=== PATIENT | male | born 1930 | race Caucasian/White ===

== ENCOUNTER 2017-08-25 09:08 | Day surgery (SDC) | payer MEDICARE, BC ==
[~2017-08-25 09:08] MED LIST: Metoclopramide 10 MG/2 ML SDV IV PRN; Sodium Chloride 0.9% 1,000 ML IV SCH; Sodium Chloride 0.9% 10 ML Syringe FLUSH PRN
[2017-08-25] MEDS ORDERED: Propofol 200 MG/20 ML SDV ONE (11:10)
--- NOTE | 2017-08-25 12:14 | OR ---
DATE OF OPERATION: 08/25/2017 PREOPERATIVE DIAGNOSIS: Change in bowel habits. POSTOPERATIVE DIAGNOSIS: Change in bowel habits. PROCEDURE: Colonoscopy. ANESTHESIA: MAC. ESTIMATED BLOOD LOSS: None. COMPLICATIONS: None. INDICATION FOR THE PROCEDURE: The patient is an 86-year-old male, who had a colonoscopy approximately 10 years ago was normal per patient. Over the past year, he has had a change in bowel habits. He has noticed a smaller caliber stools than normal. No blood. Otherwise, doing well. The patient is here today for colonoscopy. DESCRIPTION OF PROCEDURE: Informed consent was obtained from the patient. The patient was taken to the operating room, placed on table in left lateral decubitus position. Monitored anesthesia care was administered. Digital rectal exam was normal. No masses are palpated. Colonoscope was then advanced through the anus and directed toward the cecum. Cecum was identified by ileocecal valve as well as appendiceal orifice. Colonoscope was slowly withdrawn. No masses. No polyps. No areas of AV malformation, ischemia, or inflammation were identified. The patient did have some moderate diverticulosis in the sigmoid colon. Retroflexion was performed in the rectum, which was also unremarkable. Colonoscope was then withdrawn. The patient tolerated procedure well and was brought to recovery room in good condition. FINDINGS: Sigmoid diverticulosis. RECOMMENDATIONS: No signs of colorectal cancer today contributing to his change in caliber of stool. Would not recommend further colonoscopies for patient. WILBER /[id number]
[2017-08-25 17:36] VITALS: BP 157/80
== END 2017-08-25 14:40 | disposition home or self-care (01) ==
LOC: LB.SDS 09:08
PROVIDERS: ATTEND Surgery
DX: K57.30 Diverticulosis of large intestine without perforation or abscess without bleeding (principal); Z86.73 Personal history of transient ischemic attack (TIA), and cerebral infarction without residual deficits; Z79.82 Long term (current) use of aspirin; Z79.899 Other long term (current) drug therapy; Z79.02 Long term (current) use of antithrombotics/antiplatelets
CPT/HCPCS: 45378; 82962; J2704; J7040

== ENCOUNTER 2018-09-21 17:35 | Observation (INO) | payer MEDICARE ==
--- NOTE | 2018-09-21 18:37 | EDM.PDOC ---
ED HPI GENERAL MEDICAL PROBLEM - General Chief Complaint: General Stated Complaint: POSSIBLE STROKE Time Seen by Provider: 09/21/18 18:20 Source of Information: Reports: Patient, EMS, EMS Notes Reviewed, RN History Limitations: Reports: No Limitations - History of Present Illness INITIAL COMMENTS - FREE TEXT/NARRATIVE: 87 yr male presents from EMS with stroke like symptoms today at home. States numbness to left leg. He had a previous stroke with right side affect. Pt is alert and talking and joking. Moves feet with light stroke of soles of feet. Oxygen is on 3lpm and SpO2 =97%. Pt is a poor historian. He is unsure if he is feeling any better and doesn't know what was going on at the home for his symptoms. His isn't here yet. - Related Data Allergies Allergy/AdvReac Type Severity Reaction Status Date / Time No Known Allergies Allergy Verified 09/21/18 19:33 Home Meds: Home Meds Aspirin [Adult Low Dose Aspirin EC] 81 mg PO QPM 11/16/13 [History] Levothyroxine [Synthroid] 88 mcg PO ACBREAKFAST 11/16/13 [History] atorvaSTATin [Lipitor] 40 mg PO BEDTIME 01/13/16 [History] Acetaminophen [Tylenol Arthritis] 650 mg PO Q6HR PRN 08/25/17 [History] Clopidogrel [Plavix] 75 mg PO DAILY 08/25/17 [History] Furosemide [Lasix] 20 mg PO DAILY 08/25/17 [History] Metoprolol Tartrate [Lopressor] 25 mg PO DAILY 08/25/17 [History] Multivitamin [Men's Multi-Vitamin] 1 each PO 1200 08/25/17 [History] Tamsulosin [Tamsulosin 24 Hr] 0.4 mg PO BEDTIME 08/25/17 [History] Ubidecarenone [Co Q-10] 200 mg PO 1200 08/25/17 [History] Past Medical History HEENT History: Reports: Impaired Vision, Macular Degeneration, Other (See Below) 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 Cardiovascular History: Reports: Bypass, CAD, High Cholesterol, VA, Stents Gastrointestinal History: Reports: Chronic Constipation Musculoskeletal History: Reports: Fracture Neurological History: Reports: CVA, TIA Endocrine/Metabolic History: Reports: Hypothyroidism, Other (See Below) Other Endocrine/Metabolic History: diet controled diabetis Oncologic (Cancer) History: Reports: None - Infectious Disease History Infectious Disease History: Reports: Chicken Pox, Measles, Mumps - Past Surgical History HEENT Surgical History: Reports: Cataract Surgery Cardiovascular Surgical History: Reports: Coronary Artery Bypass, Coronary Artery Stent, Vascular Surgery GI Surgical History: Reports: None Endocrine Surgical History: Reports: None Neurological Surgical History: Reports: None Musculoskeletal Surgical History: Reports: Shoulder Surgery, Other (See Below) Other Musculoskeletal Surgeries/Procedures:: Bilat shoulder sx, fx arm, does remember which arm was fx Social & Family History - Family History Family Medical History: Noncontributory - Caffeine Use Caffeine Use: Reports: Coffee Caffeine Use Comment: 3 cups day ED ROS GENERAL - Review of Systems Review Of Systems: See Below Constitutional: Reports: No Symptoms HEENT: Reports: Glasses Respiratory: Reports: Shortness of Breath Cardiovascular: Denies: Chest Pain, Edema GI/Abdominal: Reports: No Symptoms : Reports: Urgency Musculoskeletal: Reports: Other (states weakness to right hand from previous stroke) Skin: Reports: No Symptoms Neurological: Denies: Confusion, Dizziness, Trouble Speaking, Change in Speech Psychiatric: Reports: No Symptoms ED EXAM, GENERAL - Physical Exam Exam: See Below Exam Limited By: No Limitations General Appearance: Alert, No Apparent Distress Ears: Hearing Grossly Normal Nose: Normal Inspection, Normal Mucosa Throat/Mouth: Normal Voice, No Airway Compromise Head: Atraumatic, Normocephalic Neck: Normal Inspection, Supple, Non-Tender Respiratory/Chest: No Respiratory Distress, No Accessory Muscle Use, Chest Non- Tender, Crackles (bases bilaterally) Cardiovascular: Normal Peripheral Pulses, Regular Rate, Rhythm, No Edema Peripheral Pulses: 2+: Dorsalis Pedis (L), Dorsalis Pedis (R) GI/Abdominal: Soft, Non-Tender, No Distention (Male) Exam: Other (voided in urinal) Back Exam: Normal Inspection Extremities: Non-Tender, No Pedal Edema, Other (moving feet and legs well) Neurological: Alert Psychiatric: Normal Affect, Normal Mood Skin Exam: Warm, Dry, Normal Color Lymphatic: No Adenopathy Course - Vital Signs Last Recorded V/S: Last Vital Signs Temp 100.1 F 09/21/18 19:31 Pulse 97 09/21/18 19:31 Resp 18 09/21/18 19:31 BP 151/72 H 09/21/18 19:31 Pulse Ox 93 L 09/21/18 19:31 - Orders/Labs/Meds Orders: Active Orders 24 hr Category Date Time Status Patient Status [ADT] Routine ADT 09/21/18 19:50 Ordered Oxygen Therapy [RC] ASDIRECTED Care 09/21/18 19:50 Ordered Vital Signs [RC] Q4H Care 09/21/18 19:50 Ordered Heart Healthy Diet [DIET] Diet 09/22/18 Breakfast Ordered Chest 1V Frontal [CR] Stat Exams 09/21/18 18:27 Taken Head wo Cont [CT] Stat Exams 09/21/18 18:28 Taken BASIC METABOLIC PANEL,BMP [CHEM] Stat Lab 09/22/18 08:00 Ordered CBC WITH AUTO DIFF [HEME] Stat Lab 09/22/18 08:00 Ordered Acetaminophen [Tylenol Arthritis] Med 09/21/18 19:55 Ordered 650 mg PO Q6HR PRN Aspirin [Adult Low Dose Aspirin EC] Med 09/21/18 20:00 Ordered 81 mg PO QPM Clopidogrel [Plavix] Med 09/22/18 08:00 Ordered 75 mg PO DAILY Furosemide [Lasix] Med 09/22/18 08:00 Ordered 20 mg PO DAILY Levothyroxine [Synthroid] Med 09/22/18 07:00 Ordered 88 mcg PO ACBREAKFAST Metoprolol Tartrate [Lopressor] Med 09/22/18 08:00 Ordered 25 mg PO DAILY Sodium Chloride 0.9% @ 75 MLS/HR(1000ml) Med 09/21/18 20:00 Ordered Sodium Chloride 0.9% [Normal Saline] 1,000 ml IV ASDIRECTED Tamsulosin [Flomax] Med 09/21/18 20:00 Ordered 0.4 mg PO BEDTIME Medication Orders Sodium Chloride (Normal Saline) 1,000 mls @ 75 mls/hr IV ASDIRECTED [facility] Non-Formulary Medication (Acetaminophen [Tylenol Arthritis]) 650 mg PO Q6HR PRN PRN Reason: Pain Non-Formulary Medication (Aspirin [Adult Low Dose Aspirin Ec]) 81 mg PO QPM [facility] Non-Formulary Medication (Clopidogrel [Plavix]) 75 mg PO DAILY [facility] Non-Formulary Medication (Furosemide [Lasix]) 20 mg PO DAILY [facility] Non-Formulary Medication (Levothyroxine [Synthroid]) 88 mcg PO ACBREAKFAST [facility] Non-Formulary Medication (Metoprolol Tartrate [Lopressor]) 25 mg PO DAILY [facility] Non-Formulary Medication (Tamsulosin [Flomax]) 0.4 mg PO BEDTIME [facility] Labs: Laboratory Tests 09/21/18 09/21/18 09/21/18 Range/Units 18:20 18:30 18:30 WBC 20.4 H* D (4.0-11.0) K/uL RBC 4.05 L (4.50-6.50) M/uL Hgb 12.3 L (13.0-18.0) g/dL Hct 36.0 L (40.0-54.0) % MCV 89 (76-96) fL MCH 30.4 (27.0-32.0) pg MCHC 34.2 (31.0-35.0) g/dL RDW 14.4 (11.0-16.0) % Plt Count 208 D (150-400) K/uL MPV 10.9 H (6.0-10.0) fL Add Manual Diff Yes Neutrophils % (Manual) 56.0 (45.0-70.0) % Lymphocytes % (Manual) 37.0 (20.0-40.0) % Monocytes % (Manual) 4.0 (3.0-10.0) % Eosinophils % (Manual) 3.0 (1.0-5.0) % Platelet Estimate Adequate PT (9.0-11.5) sec INR (1.0-3.5) Sodium 131 L (136-145) mmol/L Potassium 4.8 (3.5-5.1) mmol/L Chloride 95 L (98-107) mmol/L Carbon Dioxide 26.1 (21.0-32.0) mmol/L Anion Gap 14.7 (5.0-15.0) mmol/L BUN 14 (8-26) mg/dL Creatinine 1.08 (0.70-1.30) mg/dL Est Cr Clr Drug Dosing TNP Estimated GFR (MDRD) > 60 (>60) MLS/MIN BUN/Creatinine Ratio 13.0 (6-25) Glucose 148 H (74-100) mg/dL Lactic Acid (0.90-1.70) mmol/L Calcium 8.2 L (8.5-10.1) mg/dL Total Bilirubin 0.5 D (0.0-1.0) mg/dL AST 25 (15-37) U/L ALT 34 (12-78) U/L Alkaline Phosphatase 60 (46-116) U/L Total Protein 6.3 L (6.4-8.2) g/dL Albumin 3.7 (3.4-5.0) g/dL Globulin 2.6 (2.2-4.2) g/dL Albumin/Globulin Ratio 1.4 (0.8-2.0) TSH, Ultra Sensitive (0.358-3.740) uIU/mL Urine Color Yellow Urine Appearance Clear (CLEAR) Urine pH 7.5 (5.0-8.0) Ur Specific [place] 1.015 (1.003-1.030) Urine Protein Negative (NEGATIVE) mg/dL Urine Glucose (UA) Negative (NEGATIVE) mg/dL Urine Ketones Negative (NEGATIVE) mg/dL Urine Occult Blood Negative (NEGATIVE) Urine Nitrite Negative (NEGATIVE) Urine Bilirubin Negative (NEGATIVE) Urine Urobilinogen 0.2 (0.2-1.0) E.U./dL Ur Leukocyte Esterase Negative (NEGATIVE) Urine RBC Not seen /HPF Urine WBC Not seen /HPF Ur Squamous Epith Cells Rare /HPF Urine Bacteria Not seen /HPF 09/21/18 09/21/18 09/21/18 Range/Units 18:30 18:30 18:30 WBC (4.0-11.0) K/uL RBC (4.50-6.50) M/uL Hgb (13.0-18.0) g/dL Hct (40.0-54.0) % MCV (76-96) fL MCH (27.0-32.0) pg MCHC (31.0-35.0) g/dL RDW (11.0-16.0) % Plt Count (150-400) K/uL MPV (6.0-10.0) fL Add Manual Diff Neutrophils % (Manual) (45.0-70.0) % Lymphocytes % (Manual) (20.0-40.0) % Monocytes % (Manual) (3.0-10.0) % Eosinophils % (Manual) (1.0-5.0) % Platelet Estimate PT 10.0 (9.0-11.5) sec INR 1.0 (1.0-3.5) Sodium (136-145) mmol/L Potassium (3.5-5.1) mmol/L Chloride (98-107) mmol/L Carbon Dioxide (21.0-32.0) mmol/L Anion Gap (5.0-15.0) mmol/L BUN (8-26) mg/dL Creatinine (0.70-1.30) mg/dL Est Cr Clr Drug Dosing Estimated GFR (MDRD) (>60) MLS/MIN BUN/Creatinine Ratio (6-25) Glucose (74-100) mg/dL Lactic Acid 0.84 L (0.90-1.70) mmol/L Calcium (8.5-10.1) mg/dL Total Bilirubin (0.0-1.0) mg/dL AST (15-37) U/L ALT (12-78) U/L Alkaline Phosphatase (46-116) U/L Total Protein (6.4-8.2) g/dL Albumin (3.4-5.0) g/dL Globulin (2.2-4.2) g/dL Albumin/Globulin Ratio (0.8-2.0) TSH, Ultra Sensitive 4.449 H (0.358-3.740) uIU/mL Urine Color Urine Appearance (CLEAR) Urine pH (5.0-8.0) Ur Specific [place] (1.003-1.030) Urine Protein (NEGATIVE) mg/dL Urine Glucose (UA) (NEGATIVE) mg/dL Urine Ketones (NEGATIVE) mg/dL Urine Occult Blood (NEGATIVE) Urine Nitrite (NEGATIVE) Urine Bilirubin (NEGATIVE) Urine Urobilinogen (0.2-1.0) E.U./dL Ur Leukocyte Esterase (NEGATIVE) Urine RBC /HPF Urine WBC /HPF Ur Squamous Epith Cells /HPF Urine Bacteria /HPF Meds: Medications Generic Name Dose Route Start Last Admin Trade Name Freq PRN Reason Stop Dose Admin Sodium Chloride 1,000 mls @ 75 mls/hr 09/21/18 20:00 Normal Saline IV ASDIRECTED [facility] Non-Formulary Medication 650 mg 09/21/18 19:55 Acetaminophen [Tylenol Arthritis] PO Q6HR PRN Pain Non-Formulary Medication 81 mg 09/21/18 20:00 Aspirin [Adult Low Dose Aspirin Ec] PO QPM [facility] Non-Formulary Medication 75 mg 09/22/18 08:00 Clopidogrel [Plavix] PO DAILY [facility] Non-Formulary Medication 20 mg 09/22/18 08:00 Furosemide [Lasix] PO DAILY [facility] Non-Formulary Medication 88 mcg 09/22/18 07:00 Levothyroxine [Synthroid] PO ACBREAKFAST [facility] Non-Formulary Medication 25 mg 09/22/18 08:00 Metoprolol Tartrate [Lopressor] PO DAILY [facility] Non-Formulary Medication 0.4 mg 09/21/18 20:00 Tamsulosin [Flomax] PO BEDTIME [facility] - Re-Assessments/Exams Free Text/Narrative Re-Assessment/Exam: 09/21/18 19:[address] completed and chest x-ray w results pending. is here now and states she and pt have had a cough and head cold for about 3 days. States they haven't had any supper. States her was in the chair and got up to walk and leg was numb and couldn't feel the leg, so ambulance was called as and pt concerned of possible stroke. Lab results pending. Lactic acid 0.84 and INR 1.0. 09/21/18 19:[address] quick read is complete and no acute infarct, no hemorrhage. Chest x-ray quick read is complete and no acute findings. Discussed results with pt and . 09/21/18 19:45 Discussed lab results w pt and . Elevated WBC, and congested cough noted. Will place on observation and treat for CAP with Rocephin and Azithromycin IV. Sodium and chloride are slightly decreased Will start IV fluids Nacl at 75cc/hr. Will hold Cholesterol medicine and vitamin for the night. Departure - Departure Time of Disposition: 19:45 Disposition: Refer to Observation Condition: Good Clinical Impression: Pneumonia - Discharge Information *PRESCRIPTION DRUG MONITORING PROGRAM REVIEWED*: Not Applicable *COPY OF PRESCRIPTION DRUG MONITORING REPORT IN PATIENT LUCIO: Not Applicable Forms: ED Department Discharge - My Orders Last 24 Hours: My Active Orders 09/21/18 18:27 Chest 1V Frontal [CR] Stat 09/21/18 18:28 Head wo Cont [CT] Stat 09/21/18 19:50 Patient Status [ADT] Routine Oxygen Therapy [RC] ASDIRECTED Vital Signs [RC] Q4H 09/21/18 19:55 Acetaminophen [Tylenol Arthritis] 650 mg PO Q6HR PRN 09/21/18 20:00 Aspirin [Adult Low Dose Aspirin EC] 81 mg PO QPM Sodium Chloride 0.9% @ 75 MLS/HR(1000ml) Sodium Chloride 0.9% [Normal Saline] 1 ,000 ml IV ASDIRECTED Tamsulosin [Flomax] 0.4 mg PO BEDTIME 09/22/18 07:00 Levothyroxine [Synthroid] 88 mcg PO ACBREAKFAST 09/22/18 08:00 BASIC METABOLIC PANEL,BMP [CHEM] Stat CBC WITH AUTO DIFF [HEME] Stat Clopidogrel [Plavix] 75 mg PO DAILY Furosemide [Lasix] 20 mg PO DAILY Metoprolol Tartrate [Lopressor] 25 mg PO DAILY 09/22/18 Breakfast Heart Healthy Diet [DIET] - Assessment/Plan Last 24 Hours: My Active Orders 09/21/18 18:27 Chest 1V Frontal [CR] Stat 09/21/18 18:28 Head wo Cont [CT] Stat 09/21/18 19:50 Patient Status [ADT] Routine Oxygen Therapy [RC] ASDIRECTED Vital Signs [RC] Q4H 09/21/18 19:55 Acetaminophen [Tylenol Arthritis] 650 mg PO Q6HR PRN 09/21/18 20:00 Aspirin [Adult Low Dose Aspirin EC] 81 mg PO QPM Sodium Chloride 0.9% @ 75 MLS/HR(1000ml) Sodium Chloride 0.9% [Normal Saline] 1 ,000 ml IV ASDIRECTED Tamsulosin [Flomax] 0.4 mg PO BEDTIME 09/22/18 07:00 Levothyroxine [Synthroid] 88 mcg PO ACBREAKFAST 09/22/18 08:00 BASIC METABOLIC PANEL,BMP [CHEM] Stat CBC WITH AUTO DIFF [HEME] Stat Clopidogrel [Plavix] 75 mg PO DAILY Furosemide [Lasix] 20 mg PO DAILY Metoprolol Tartrate [Lopressor] 25 mg PO DAILY 09/22/18 Breakfast Heart Healthy Diet [DIET] Plan: Elevated WBC of 20.4 and temperature tonight, Pt has loose cough and has been sick for a few days. Chest x-ray [address] on observation with CAP and start Rocephin 1 gm IV and Azithromycin 500 mg IV. IV Nacl at 75 cc/hr. Start incentive spirometer. will stay with pt. will check CBC and BMP in am. Will continue home medications.
[2018-09-21] MEDS ORDERED: Acetaminophen 650 MG Tab.ER PO PRN ×2 (19:55→23:05)
[2018-09-21] MEDS ORDERED: Non-Formulary Medication 1 Each (Tamsulosin [Flomax] 0.4 MG) PO SCH (20:00)
--- NOTE | 2018-09-21 20:34 | CT ---
CLINICAL DATA: R/O CVA. UNENHANCED BRAIN CT, 21 SEPTEMBER 2018: Multislice acquisition through the brain without IV contrast was performed. Comparison made to a prior exam dated 19 January 2016. There is diffuse cerebral atrophy. There are periventricular lucencies bilaterally, consistent with small vessel ischemic change. There are lucencies in the basal ganglia bilaterally, consistent with old lacunar infarcts. There are small areas of encephalomalacia in the left parietal region and right posterior parietal region, consistent with prior infarcts. No masses or mass effect. No intracranial hemorrhage. No evidence of acute or subacute infarct. There is extensive mucosal thickening and fluid in the ethmoid sinuses. There is also mucosal thickening in the sphenoid sinuses, consistent with sinus disease. No fractures. IMPRESSION: No acute intracranial abnormalities. Job: [id number] [facility]
--- NOTE | 2018-09-21 20:36 | CR ---
CLINICAL DATA: Short of breath. AP PORTABLE CHEST, 21 SEPTEMBER 2018: Comparison made to a prior exam dated 20 April 2018: The patient is status post median sternotomy. The heart size is normal. The aorta is ectatic. There are mild interstitial changes throughout both lungs. The lungs are otherwise clear. There is slight blunting of both costophrenic angles, consistent with small bilateral pleural effusions or pleural scar. No other significant findings. Job: [id number] [facility]
[2018-09-21] MEDS ORDERED: cefTRIAXone 1 GM in Sodium Chloride 0.9% 50 ML IV ONE (20:37)
[2018-09-21] MEDS ORDERED: Azithromycin 500 MG in Sodium Chloride 0.9% 250 ML IV ONE (20:38)
[2018-09-21] MEDS: Sodium Chloride 0.9% 1,000 ML IV SCH (21:03)
[2018-09-21] MEDS ORDERED: Aspirin 81 MG Tab.EC PO SCH (22:04)
[2018-09-22] MEDS ORDERED: Albuterol 0.083% 2.5 MG/3 ML Neb Soln NEB PRN ×2 (00:09→08:42)
[2018-09-22] MEDS ORDERED: Albuterol 0.083% 2.5 MG/3 ML Neb Soln ONE (00:18)
[2018-09-22] MEDS: Levothyroxine 88 MCG Tab**OWN MED PO SCH (06:16)
[2018-09-22] MEDS: Sodium Chloride 0.9% 1,000 ML IV SCH (07:42)
[2018-09-22] MEDS ORDERED: Metoprolol Tartrate 25 MG Tab**OWN MED PO SCH (08:00)
[2018-09-22] MEDS: Furosemide 20 MG Tab**OWN MED PO SCH (08:16)
[2018-09-22] MEDS: Clopidogrel 75 MG Tab**OWN MED PO SCH (08:16)
--- NOTE | 2018-09-22 08:41 | PCM.PN ---
- General Info Date of Service: 09/22/18 Admission Dx/Problem (Free Text): pneumonia Subjective Update: Pt reports cough continues, but is feeling some better. reports pt had a good night. Functional Status: Reports: Pain Controlled, Tolerating Diet, Urinating, Incentive Spirometry - Review of Systems General: Reports: Weakness. Denies: Fever HEENT: Reports: Glasses. Denies: Sore Throat, Rhinitis Pulmonary: Reports: Cough, Sputum. Denies: Wheezing Cardiovascular: Denies: Chest Pain, Edema Gastrointestinal: Denies: Abdominal Pain, Diarrhea, Nausea Genitourinary: Reports: Frequency, Urgency Musculoskeletal: Reports: Other (no pain) Skin: Reports: Dryness Neurological: Reports: Difficulty Walking. Denies: Confusion, Dizziness Psychiatric: Reports: No Symptoms - Patient Data Vitals - Most Recent: Last Vital Signs Temp 98.6 F 09/22/18 07:43 Pulse 103 H 09/22/18 08:16 Resp 18 09/22/18 07:43 BP 155/81 H 09/22/18 08:16 Pulse Ox 94 L 09/22/18 07:43 Weight - Most Recent: 157 lb 12.8 oz I&O - Last 24 Hours: Intake & Output 09/21/18 09/22/18 09/22/18 22:59 06:59 14:59 Intake Total 854 Balance 854 Lab Results Last 24 Hours: Laboratory Results - last 24 hr 09/21/18 09/21/18 09/21/18 Range/Units 18:20 18:30 18:30 WBC 20.4 H* D (4.0-11.0) K/uL RBC 4.05 L (4.50-6.50) M/uL Hgb 12.3 L (13.0-18.0) g/dL Hct 36.0 L (40.0-54.0) % MCV 89 (76-96) fL MCH 30.4 (27.0-32.0) pg MCHC 34.2 (31.0-35.0) g/dL RDW 14.4 (11.0-16.0) % Plt Count 208 D (150-400) K/uL MPV 10.9 H (6.0-10.0) fL Add Manual Diff Yes Neutrophils % (Manual) 56.0 (45.0-70.0) % Lymphocytes % (Manual) 37.0 (20.0-40.0) % Monocytes % (Manual) 4.0 (3.0-10.0) % Eosinophils % (Manual) 3.0 (1.0-5.0) % Platelet Estimate Adequate PT (9.0-11.5) sec INR (1.0-3.5) Sodium 131 L (136-145) mmol/L Potassium 4.8 (3.5-5.1) mmol/L Chloride 95 L (98-107) mmol/L Carbon Dioxide 26.1 (21.0-32.0) mmol/L Anion Gap 14.7 (5.0-15.0) mmol/L BUN 14 (8-26) mg/dL Creatinine 1.08 (0.70-1.30) mg/dL Est Cr Clr Drug Dosing TNP Estimated GFR (MDRD) > 60 (>60) MLS/MIN BUN/Creatinine Ratio 13.0 (6-25) Glucose 148 H (74-100) mg/dL Lactic Acid (0.90-1.70) mmol/L Calcium 8.2 L (8.5-10.1) mg/dL Total Bilirubin 0.5 D (0.0-1.0) mg/dL AST 25 (15-37) U/L ALT 34 (12-78) U/L Alkaline Phosphatase 60 (46-116) U/L Total Protein 6.3 L (6.4-8.2) g/dL Albumin 3.7 (3.4-5.0) g/dL Globulin 2.6 (2.2-4.2) g/dL Albumin/Globulin Ratio 1.4 (0.8-2.0) TSH, Ultra Sensitive (0.358-3.740) uIU/mL Urine Color Yellow Urine Appearance Clear (CLEAR) Urine pH 7.5 (5.0-8.0) Ur Specific [place] 1.015 (1.003-1.030) Urine Protein Negative (NEGATIVE) mg/dL Urine Glucose (UA) Negative (NEGATIVE) mg/dL Urine Ketones Negative (NEGATIVE) mg/dL Urine Occult Blood Negative (NEGATIVE) Urine Nitrite Negative (NEGATIVE) Urine Bilirubin Negative (NEGATIVE) Urine Urobilinogen 0.2 (0.2-1.0) E.U./dL Ur Leukocyte Esterase Negative (NEGATIVE) Urine RBC Not seen /HPF Urine WBC Not seen /HPF Ur Squamous Epith Cells Rare /HPF Urine Bacteria Not seen /HPF 09/21/18 09/21/18 09/21/18 Range/Units 18:30 18:30 18:30 WBC (4.0-11.0) K/uL RBC (4.50-6.50) M/uL Hgb (13.0-18.0) g/dL Hct (40.0-54.0) % MCV (76-96) fL MCH (27.0-32.0) pg MCHC (31.0-35.0) g/dL RDW (11.0-16.0) % Plt Count (150-400) K/uL MPV (6.0-10.0) fL Add Manual Diff Neutrophils % (Manual) (45.0-70.0) % Lymphocytes % (Manual) (20.0-40.0) % Monocytes % (Manual) (3.0-10.0) % Eosinophils % (Manual) (1.0-5.0) % Platelet Estimate PT 10.0 (9.0-11.5) sec INR 1.0 (1.0-3.5) Sodium (136-145) mmol/L Potassium (3.5-5.1) mmol/L Chloride (98-107) mmol/L Carbon Dioxide (21.0-32.0) mmol/L Anion Gap (5.0-15.0) mmol/L BUN (8-26) mg/dL Creatinine (0.70-1.30) mg/dL Est Cr Clr Drug Dosing Estimated GFR (MDRD) (>60) MLS/MIN BUN/Creatinine Ratio (6-25) Glucose (74-100) mg/dL Lactic Acid 0.84 L (0.90-1.70) mmol/L Calcium (8.5-10.1) mg/dL Total Bilirubin (0.0-1.0) mg/dL AST (15-37) U/L ALT (12-78) U/L Alkaline Phosphatase (46-116) U/L Total Protein (6.4-8.2) g/dL Albumin (3.4-5.0) g/dL Globulin (2.2-4.2) g/dL Albumin/Globulin Ratio (0.8-2.0) TSH, Ultra Sensitive 4.449 H (0.358-3.740) uIU/mL Urine Color Urine Appearance (CLEAR) Urine pH (5.0-8.0) Ur Specific [place] (1.003-1.030) Urine Protein (NEGATIVE) mg/dL Urine Glucose (UA) (NEGATIVE) mg/dL Urine Ketones (NEGATIVE) mg/dL Urine Occult Blood (NEGATIVE) Urine Nitrite (NEGATIVE) Urine Bilirubin (NEGATIVE) Urine Urobilinogen (0.2-1.0) E.U./dL Ur Leukocyte Esterase (NEGATIVE) Urine RBC /HPF Urine WBC /HPF Ur Squamous Epith Cells /HPF Urine Bacteria /HPF 09/22/18 Range/Units 07:50 WBC (4.0-11.0) K/uL RBC (4.50-6.50) M/uL Hgb (13.0-18.0) g/dL Hct (40.0-54.0) % MCV (76-96) fL MCH (27.0-32.0) pg MCHC (31.0-35.0) g/dL RDW (11.0-16.0) % Plt Count (150-400) K/uL MPV (6.0-10.0) fL Add Manual Diff Neutrophils % (Manual) (45.0-70.0) % Lymphocytes % (Manual) (20.0-40.0) % Monocytes % (Manual) (3.0-10.0) % Eosinophils % (Manual) (1.0-5.0) % Platelet Estimate PT (9.0-11.5) sec INR (1.0-3.5) Sodium 132 L (136-145) mmol/L Potassium 4.2 (3.5-5.1) mmol/L Chloride 98 (98-107) mmol/L Carbon Dioxide 26.3 (21.0-32.0) mmol/L Anion Gap 11.9 (5.0-15.0) mmol/L BUN 11 D (8-26) mg/dL Creatinine 1.00 (0.70-1.30) mg/dL Est Cr Clr Drug Dosing 46.08 Estimated GFR (MDRD) > 60 (>60) MLS/MIN BUN/Creatinine Ratio 11.0 (6-25) Glucose 145 H (74-100) mg/dL Lactic Acid (0.90-1.70) mmol/L Calcium 7.8 L (8.5-10.1) mg/dL Total Bilirubin (0.0-1.0) mg/dL AST (15-37) U/L ALT (12-78) U/L Alkaline Phosphatase (46-116) U/L Total Protein (6.4-8.2) g/dL Albumin (3.4-5.0) g/dL Globulin (2.2-4.2) g/dL Albumin/Globulin Ratio (0.8-2.0) TSH, Ultra Sensitive (0.358-3.740) uIU/mL Urine Color Urine Appearance (CLEAR) Urine pH (5.0-8.0) Ur Specific [place] (1.003-1.030) Urine Protein (NEGATIVE) mg/dL Urine Glucose (UA) (NEGATIVE) mg/dL Urine Ketones (NEGATIVE) mg/dL Urine Occult Blood (NEGATIVE) Urine Nitrite (NEGATIVE) Urine Bilirubin (NEGATIVE) Urine Urobilinogen (0.2-1.0) E.U./dL Ur Leukocyte Esterase (NEGATIVE) Urine RBC /HPF Urine WBC /HPF Ur Squamous Epith Cells /HPF Urine Bacteria /HPF Med Orders - Current: Current Medications Acetaminophen (Tylenol Arthritis Pain) 650 mg PO Q8HR PRN PRN Reason: Pain Albuterol (Proventil Neb Soln) 2.5 mg NEB Q4H PRN PRN Reason: Wheezing Last Admin: 09/22/18 00:20 Dose: 2.5 mg Aspirin (Halfprin) 81 mg PO QPM [facility] Clopidogrel Bisulfate (Plavix) 75 mg PO DAILY [facility] Last Admin: 09/22/18 08:16 Dose: 75 mg Furosemide (Lasix) 20 mg PO DAILY [facility] Last Admin: 09/22/18 08:16 Dose: 20 mg Sodium Chloride (Normal Saline) 1,000 mls @ 75 mls/hr IV ASDIRECTED [facility] Last Admin: 09/22/18 07:42 Dose: 75 mls/hr Levothyroxine Sodium (Synthroid) 88 mcg PO ACBREAKFAST [facility] Last Admin: 09/22/18 06:16 Dose: 88 mcg Metoprolol Tartrate (Lopressor) 25 mg PO DAILY [facility] Last Admin: 09/22/18 08:16 Dose: 25 mg Sodium Chloride (Saline Flush) 10 ml FLUSH ASDIRECTED PRN PRN Reason: Keep Vein Open Tamsulosin HCl (Flomax) 0.4 mg PO DAILY@1200 [facility] Discontinued Medications Acetaminophen (Tylenol Arthritis Pain) 650 mg PO Q6HR PRN PRN Reason: Pain Albuterol (Proventil Neb Soln) Confirm Administered Dose 2.5 mg .ROUTE .STK-MED ONE Stop: 09/22/18 00:19 Last Admin: 09/22/18 00:24 Dose: Not Given Aspirin (Halfprin) 81 mg PO QPM [facility] Ceftriaxone Sodium 1 gm/ (Sodium Chloride) 50 mls @ 200 mls/hr IV ONETIME ONE Stop: 09/21/18 20:51 Last Admin: 09/21/18 21:06 Dose: 200 mls/hr Azithromycin 500 mg/ Sodium (Chloride) 250 mls @ 250 mls/hr IV ONETIME ONE Stop: 09/21/18 21:37 Last Admin: 09/21/18 21:32 Dose: 250 mls/hr Non-Formulary Medication (Aspirin [Adult Low Dose Aspirin Ec]) 81 mg PO QPM [facility] Last Admin: 09/21/18 20:45 Dose: 81 mg Non-Formulary Medication (Tamsulosin [Flomax]) 0.4 mg PO BEDTIME [facility] Last Admin: 09/21/18 21:38 Dose: Not Given - Exam General: Alert, Oriented, Cooperative HEENT: Pupils Equal, Pupils Reactive, Mucous Membr. Moist/[place] Neck: Supple, Trachea Midline Lungs: Normal Respiratory Effort, Rhonchi (right lower lobe) Cardiovascular: Regular Rate, Regular Rhythm GI/Abdominal Exam: Soft, Non-Tender, No Distention Back Exam: Normal Inspection, Full Range of Motion Extremities: Non-Tender, No Pedal Edema Skin: Warm, Dry Neurological: No New Focal Deficit Psy/Mental Status: Alert, Normal Affect, Normal Mood - Problem List & Annotations (1) Pneumonia SNOMED Code(s): 405280698 Code(s): J18.9 - PNEUMONIA, UNSPECIFIED ORGANISM Status: Acute Current Visit: Yes (2) Hypertension SNOMED Code(s): 10274040 Code(s): I10 - ESSENTIAL (PRIMARY) HYPERTENSION Status: Acute Current Visit: Yes - Problem List Review Problem List Initiated/Reviewed/Updated: Yes - My Orders Last 24 Hours: My Active Orders 09/21/18 19:50 Patient Status [ADT] Routine Oxygen Therapy [RC] ASDIRECTED Vital Signs [RC] Q4H 09/21/18 19:55 Peripheral IV Insertion Adult [OM.PC] Routine 09/21/18 20:00 Sodium Chloride 0.9% [Normal Saline] 1,000 ml IV ASDIRECTED 09/21/18 21:30 CULTURE MRSA SURVEY [RM] Routine 09/21/18 23:05 Acetaminophen [Tylenol Arthritis Pain] 650 mg PO Q8HR PRN 09/22/18 06:31 Sodium Chloride 0.9% [Saline Flush] 10 ml FLUSH ASDIRECTED PRN 09/22/18 07:00 Levothyroxine [Synthroid] 88 mcg PO ACBREAKFAST 09/22/18 07:50 CBC WITH AUTO DIFF [HEME] Stat 09/22/18 08:00 Clopidogrel [Plavix] 75 mg PO DAILY Furosemide [Lasix] 20 mg PO DAILY Metoprolol Tartrate [Lopressor] 25 mg PO DAILY 09/22/18 12:00 Tamsulosin [Flomax] 0.4 mg PO DAILY@1200 09/22/18 20:00 Aspirin [Halfprin] 81 mg PO QPM 09/22/18 Breakfast Heart Healthy Diet [DIET] - Assessment Assessment:: Pneumonia: WBC is improved. Will continue with Rocephin 1 gm IV today and Azithromycin 500 mg IV today. Recommend incentive spirometer to use when awake. Continue with Albuterol neb every 4 hour when awake. Review of previous EKG with normal QT interval. Noted possible QT interaction with Azithromycin and Metoprolol. Pt is on Metoprolol tartrate daily and heart rate has been greater than 100 through the night. Will increase the Metoprolol to bid. Will recheck CBC and BMP in am with possible discharge on oral Azithromycin and RTC in 1 week for follow-up.
[2018-09-22] MEDS ORDERED: Albuterol 0.083% 2.5 MG/3 ML Neb Soln NEB SCH ×2 (08:45)
[2018-09-22] MEDS: Albuterol 0.083% 2.5 MG/3 ML Neb Soln NEB SCH ×5 (10:15→21:55)
[2018-09-22] MEDS ORDERED: Tamsulosin 0.4 MG Cap.ER PO SCH (12:00)
[2018-09-22] MEDS ORDERED: cefTRIAXone 1 GM in Sodium Chloride 0.9% 50 ML IV ONE (13:00)
[2018-09-22] MEDS ORDERED: Azithromycin 500 MG in Sodium Chloride 0.9% 250 ML IV ONE (14:00)
[2018-09-22] MEDS ORDERED: Azithromycin 500 MG AdvVial IV ONE (14:00)
[2018-09-22] MEDS: Metoprolol Tartrate 25 MG Tab**OWN MED PO SCH (19:56)
[2018-09-22] MEDS ORDERED: Aspirin 81 MG Tab.EC PO SCH (20:00)
[2018-09-22] MEDS: Sodium Chloride 0.9% 10 ML Syringe FLUSH PRN ×2 (20:43→20:44)
[2018-09-23] MEDS: Albuterol 0.083% 2.5 MG/3 ML Neb Soln NEB SCH ×2 (02:58→08:23)
[2018-09-23] MEDS: Levothyroxine 88 MCG Tab**OWN MED PO SCH (06:53)
[2018-09-23 08:16] VITALS: BP 153/82
[2018-09-23] MEDS: Clopidogrel 75 MG Tab**OWN MED PO SCH (08:20)
[2018-09-23] MEDS: Metoprolol Tartrate 25 MG Tab**OWN MED PO SCH (08:20)
[2018-09-23] MEDS: Furosemide 20 MG Tab**OWN MED PO SCH (08:22)
[2018-09-23] MEDS ORDERED: Albuterol 8 GM Inhaler INH PRN (09:14)
--- NOTE | 2018-09-23 09:54 | PCM.DCSUM1 ---
Discharge Summary - Hospital Course HPI Initial Comments: 87 yr male presented to ER with concerns of stroke with weakness to his leg. CT results of no acute findings. Elevated WBC and increase in cough and rhonchii, place on observation and treat for pneumonia. Chest x-ray with no acute findings. Azithromycin and Rocephin IV X 2 days. Pt has tolerated well and increase in strength and is ambulatory with use of cane and no more weakness to the leg. Elevated WBC and manual diff with elevated lymphocytes. 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 Will discharge today with Azithromycin daily x 3 days and RTC for follow-up next week. Pt/ will need to call for an appointment as the clinic is closed today. Diagnosis: Stroke: No - Discharge Data Discharge Date: 09/23/18 Discharge Disposition: Home, Self-Care 01 Condition: Good - Discharge Diagnosis/Problem(s) (1) Pneumonia SNOMED Code(s): 303774697 ICD Code: J18.9 - PNEUMONIA, UNSPECIFIED ORGANISM Status: Acute Current Visit: Yes (2) Hypertension SNOMED Code(s): 00973943 ICD Code: I10 - ESSENTIAL (PRIMARY) HYPERTENSION Status: Acute Current Visit: Yes - Patient Instructions Diet: Usual Diet as Tolerated Activity: Cough & Deep Breathe, Full Weight Bearing, Rest and Relax Today Driving: Do Not Drive Showering/Bathing: May Shower (with assist) Notify Provider of: Fever - Discharge Plan *PRESCRIPTION DRUG MONITORING PROGRAM REVIEWED*: Not Applicable *COPY OF PRESCRIPTION DRUG MONITORING REPORT IN PATIENT LUCIO: Not Applicable Home Medications: Home Meds Aspirin [Adult Low Dose Aspirin EC] 81 mg PO QPM 11/16/13 [History] Levothyroxine [Synthroid] 88 mcg PO ACBREAKFAST 11/16/13 [History] atorvaSTATin [Lipitor] 40 mg PO BEDTIME 01/13/16 [History] Acetaminophen [Tylenol Arthritis] 650 mg PO Q8HR 08/25/17 [History] Clopidogrel [Plavix] 75 mg PO DAILY 08/25/17 [History] Furosemide [Lasix] 20 mg PO DAILY 08/25/17 [History] Metoprolol Tartrate [Lopressor] 25 mg PO DAILY 08/25/17 [History] Multivitamin [Men's Multi-Vitamin] 1 each PO 1200 08/25/17 [History] Tamsulosin [Flomax] 0.4 mg PO DAILY@1200 08/25/17 [History] Ubidecarenone [Co Q-10] 200 mg PO 1200 08/25/17 [History] Omeprazole 40 mg PO ACBREAKFAST 09/22/18 [History] Albuterol [Ventolin HFA] 2 inhalation INH Q4H PRN inhaler 09/23/18 [Rx] Forms: ED Department Discharge Referrals: PCP,None [Primary Care Provider] - - Discharge Summary/Plan Comment DC Time >30 min.: No Discharge Summary/Plan Comment: Will discharge today with Azithromycin daily x 3 days and RTC for follow-up next week. Please use the inhaler in the morning and after supper for 4 days and as needed every 4 hour, after the 4 days, then may use every 4 hour as needed. Please use the incentive spirometer every 2 hour for 10 repetitions for 4 days, then every 4 hour as needed. Continue home medications. May be up in home as tolerated. Return to clinic next week for follow-up, please call on Tuesday to make an appointment that is convenient for you. - General Info Date of Service: 09/23/18 Admission Dx/Problem (Free Text: pneumonia Subjective Update: Pt states he is much stronger today and has been ambulating in the room and to the bathroom with use of the cane. states pt is much improved and she is feeling better with her cough. Functional Status: Reports: Tolerating Diet, Ambulating, Urinating, Incentive Spirometry - Review of Systems General: Reports: No Symptoms HEENT: Reports: Glasses. Denies: Sinus Congestion, Sore Throat, Rhinitis Pulmonary: Reports: Cough. Denies: Shortness of Breath, Sputum Cardiovascular: Reports: Dyspnea on Exertion. Denies: Chest Pain, Palpitations , Edema, Lightheadedness Gastrointestinal: Reports: No Symptoms Genitourinary: Reports: Frequency, Urgency Musculoskeletal: Reports: Other (RUE weakness r/t previous stroke) Skin: Reports: No Symptoms Neurological: Reports: Gait Disturbance (uses cane for ambulation). Denies: Confusion, Dizziness Psychiatric: Reports: No Symptoms - Patient Data Vitals - Most Recent: Last Vital Signs Temp 97.7 F 09/23/18 07:00 Pulse 74 09/23/18 08:20 Resp 18 09/23/18 07:00 BP 153/82 H 09/23/18 08:20 Pulse Ox 96 09/23/18 07:00 Weight - Most Recent: 157 lb 12.8 oz I&O - Last 24 hours: Intake & Output 09/22/18 09/23/18 09/23/18 22:59 06:59 14:59 Intake Total 950 900 Output Total 1200 Balance 950 -300 Lab Results - Last 24 hrs: Laboratory Results - last 24 hr 09/23/18 09/23/18 Range/Units 09:10 09:10 WBC 22.3 H* (4.0-11.0) K/uL RBC 3.86 L (4.50-6.50) M/uL Hgb 11.8 L (13.0-18.0) g/dL Hct 35.0 L (40.0-54.0) % MCV 91 (76-96) fL MCH 30.6 (27.0-32.0) pg MCHC 33.7 (31.0-35.0) g/dL RDW 14.9 (11.0-16.0) % Plt Count 211 (150-400) K/uL MPV 10.6 H (6.0-10.0) fL Neut % (Auto) Cancelled Lymph % (Auto) Cancelled [place] % (Auto) Cancelled Eos % (Auto) Cancelled Baso % (Auto) Cancelled Neut # (Auto) Cancelled Lymph # (Auto) Cancelled [place] # (Auto) Cancelled Eos # (Auto) Cancelled Baso # (Auto) Cancelled Add Manual Diff Cancelled Sodium 135 L (136-145) mmol/L Potassium 4.3 (3.5-5.1) mmol/L Chloride 100 (98-107) mmol/L Carbon Dioxide 29.0 (21.0-32.0) mmol/L Anion Gap 10.3 (5.0-15.0) mmol/L BUN 8 D (8-26) mg/dL Creatinine 0.89 (0.70-1.30) mg/dL Est Cr Clr Drug Dosing 51.77 mL/min Estimated GFR (MDRD) > 60 (>60) MLS/MIN BUN/Creatinine Ratio 9.0 (6-25) Glucose 172 H (74-100) mg/dL Calcium 8.5 (8.5-10.1) mg/dL Med Orders - Current: Current Medications Acetaminophen (Tylenol Arthritis Pain) 650 mg PO Q8HR PRN PRN Reason: Pain Albuterol (Ventolin Hfa) 0 gm INH Q4H PRN PRN Reason: Congestion Aspirin (Halfprin) 81 mg PO QPM [facility] Last Admin: 09/22/18 19:58 Dose: 81 mg Clopidogrel Bisulfate (Plavix) 75 mg PO DAILY [facility] Last Admin: 09/23/18 08:20 Dose: 75 mg Furosemide (Lasix) 20 mg PO DAILY [facility] Last Admin: 09/23/18 08:22 Dose: 20 mg Levothyroxine Sodium (Synthroid) 88 mcg PO ACBREAKFAST [facility] Last Admin: 09/23/18 06:53 Dose: 88 mcg Metoprolol Tartrate (Lopressor) 25 mg PO BID [facility] Last Admin: 09/23/18 08:20 Dose: 25 mg Sodium Chloride (Saline Flush) 10 ml FLUSH ASDIRECTED PRN PRN Reason: Keep Vein Open Last Admin: 09/22/18 20:44 Dose: 10 ml Tamsulosin HCl (Flomax) 0.4 mg PO DAILY@1200 [facility] Last Admin: 09/22/18 12:08 Dose: 0.4 mg Discontinued Medications Acetaminophen (Tylenol Arthritis Pain) 650 mg PO Q6HR PRN PRN Reason: Pain Albuterol (Proventil Neb Soln) 2.5 mg NEB Q4H PRN PRN Reason: Wheezing Last Admin: 09/22/18 00:20 Dose: 2.5 mg Albuterol (Proventil Neb Soln) Confirm Administered Dose 2.5 mg .ROUTE .STK-MED ONE Stop: 09/22/18 00:19 Last Admin: 09/22/18 00:24 Dose: Not Given Albuterol (Proventil Neb Soln) 2.5 mg NEB Q4H [facility] Albuterol (Proventil Neb Soln) 2.5 mg NEB Q4H [facility] Albuterol (Proventil Neb Soln) 2.5 mg NEB Q4H PRN PRN Reason: Wheezing Albuterol (Proventil Neb Soln) 2.5 mg NEB Q4H [facility] Last Admin: 09/23/18 08:23 Dose: Not Given Aspirin (Halfprin) 81 mg PO QPM [facility] Azithromycin (Zithromax) 500 mg IV Q24H ONE Stop: 09/22/18 14:01 Sodium Chloride (Normal Saline) 1,000 mls @ 75 mls/hr IV ASDIRECTED [facility] Last Admin: 09/22/18 07:42 Dose: 75 mls/hr Ceftriaxone Sodium 1 gm/ (Sodium Chloride) 50 mls @ 200 mls/hr IV ONETIME ONE Stop: 09/21/18 20:51 Last Admin: 09/21/18 21:06 Dose: 200 mls/hr Azithromycin 500 mg/ Sodium (Chloride) 250 mls @ 250 mls/hr IV ONETIME ONE Stop: 09/21/18 21:37 Last Admin: 09/21/18 21:32 Dose: 250 mls/hr Ceftriaxone Sodium 1 gm/ (Sodium Chloride) 50 mls @ 100 mls/hr IV ONETIME ONE Stop: 09/22/18 13:29 Last Admin: 09/22/18 13:01 Dose: 100 mls/hr Azithromycin 500 mg/ Sodium (Chloride) 250 mls @ 250 mls/hr IV ONETIME ONE Stop: 09/22/18 14:59 Last Admin: 09/22/18 13:37 Dose: 250 mls/hr Metoprolol Tartrate (Lopressor) 25 mg PO DAILY [facility] Last Admin: 09/22/18 08:16 Dose: 25 mg Non-Formulary Medication (Aspirin [Adult Low Dose Aspirin Ec]) 81 mg PO QPM [facility] Last Admin: 09/21/18 20:45 Dose: 81 mg Non-Formulary Medication (Tamsulosin [Flomax]) 0.4 mg PO BEDTIME [facility] Last Admin: 09/21/18 21:38 Dose: Not Given - Exam Quality Assessment: Denies: Supplemental Oxygen, DVT Prophylaxis, Skin Breakdown General: Reports: Alert, Oriented HEENT: Reports: Pupils Equal, Mucous Membr. Moist/[place] Neck: Reports: Supple, Trachea Midline Lungs: Reports: Normal Respiratory Effort, Rhonchi (bases bilaterally, clears with coughing and deep breathing) GI/Abdominal Exam: Soft, Non-Tender Back Exam: Reports: Normal Inspection, Full Range of Motion Extremities: Non-Tender, No Pedal Edema, Normal Capillary Refill Skin: Reports: Warm, Dry, Intact Neurological: Reports: No New Focal Deficit Psy/Mental Status: Reports: Alert, Normal Affect, Normal Mood (very positive and bright, telling jokes.)
== END 2018-09-23 11:05 | disposition home or self-care (01) ==
LOC: LB.ED 17:35 → LB.MS 19:50
PROVIDERS: ADMIT Nurse Practitioner Family; ATTEND Nurse Practitioner Family
DX: J18.9 Pneumonia, unspecified organism (principal); I10 Essential (primary) hypertension; E11.9 Type 2 diabetes mellitus without complications; E78.00 Pure hypercholesterolemia, unspecified; E03.9 Hypothyroidism, unspecified; Z86.73 Personal history of transient ischemic attack (TIA), and cerebral infarction without residual deficits; Z79.82 Long term (current) use of aspirin; Z79.02 Long term (current) use of antithrombotics/antiplatelets; Z79.899 Other long term (current) drug therapy; Z98.890 Other specified postprocedural states
CPT/HCPCS: 36415; 70450; 71045; 80048; 80053; 81001; 83605; 84443; 85025; 85610; 96361; 96365; 96375; 96376; 99285-25; A0425; A0429; A9270-GY; G0378; J0456; J0696; J7030; J7050

== ENCOUNTER 2018-10-16 10:16 | Inpatient (IN) | payer MEDICARE ==
[2018-10-16] MEDS ORDERED: Sodium Chloride 0.9% 10 ML Syringe FLUSH PRN (11:50)
[2018-10-16] MEDS ORDERED: Sodium Chloride 0.9% 1,000 ML IV SCH (12:00)
[2018-10-16] MEDS: Piperacillin/Tazobactam 3.375 GM in Sodium Chloride 0.9% 100 ML IV SCH ×2 (14:00→19:58)
[2018-10-16] MEDS: Albuterol/Ipratropium 3.0-0.5 MG/3 ML Neb Soln NEB PRN (15:00)
[2018-10-16] MEDS ORDERED: Albuterol/Ipratropium 3.0-0.5 MG/3 ML Neb Soln NEB SCH (15:45)
[2018-10-17] MEDS: Piperacillin/Tazobactam 3.375 GM in Sodium Chloride 0.9% 100 ML IV SCH ×2 (03:23→08:40)
[2018-10-17] MEDS ORDERED: Albuterol 8 GM Inhaler INH PRN (08:38)
--- NOTE | 2018-10-17 08:56 | PCM.PN ---
- General Info Date of Service: 10/17/18 Admission Dx/Problem (Free Text): elevated WBC Functional Status: Reports: Tolerating Diet, Ambulating, Urinating Pain Score: 0 - Review of Systems General: Reports: No Symptoms HEENT: Reports: Glasses Pulmonary: Reports: Shortness of Breath, Cough, Sputum, Wheezing. Denies: Pleuritic Chest Pain, Hemoptysis Cardiovascular: Denies: Chest Pain, Palpitations Gastrointestinal: Denies: Abdominal Pain, Decreased Appetite, Nausea, Vomiting Genitourinary: Reports: Frequency. Denies: Burning, Pain Musculoskeletal: Reports: No Symptoms Skin: Reports: No Symptoms Neurological: Reports: No Symptoms Psychiatric: Reports: No Symptoms - Patient Data Vitals - Most Recent: Last Vital Signs Temp 98 F 10/16/18 20:00 Pulse 81 10/16/18 20:00 Resp 20 10/17/18 04:00 BP 153/74 H 10/16/18 20:00 Pulse Ox 96 10/16/18 20:00 Weight - Most Recent: 152 lb I&O - Last 24 Hours: Intake & Output 10/16/18 10/17/18 10/17/18 22:59 06:59 14:59 Intake Total 860 Output Total 1125 Balance -265 Lab Results Last 24 Hours: Laboratory Results - last 24 hr 10/16/18 10/16/18 10/16/18 Range/Units 10:30 12:30 16:57 WBC 38.6 H* D (4.0-11.0) K/uL RBC 4.17 L (4.50-6.50) M/uL Hgb 13.0 (13.0-18.0) g/dL Hct 38.0 L (40.0-54.0) % MCV 91 (76-96) fL MCH 31.2 (27.0-32.0) pg MCHC 34.2 (31.0-35.0) g/dL RDW 14.9 (11.0-16.0) % Plt Count 300 (150-400) K/uL MPV 10.7 H (6.0-10.0) fL Add Manual Diff Yes Neutrophils % (Manual) 33.0 L (45.0-70.0) % Band Neutrophils % 1.0 % Lymphocytes % (Manual) 65.0 H (20.0-40.0) % Monocytes % (Manual) 1.0 L (3.0-10.0) % Eosinophils % (Manual) (1.0-5.0) % Platelet Estimate Sodium (136-145) mmol/L Potassium (3.5-5.1) mmol/L Chloride (98-107) mmol/L Carbon Dioxide (21.0-32.0) mmol/L Anion Gap (5.0-15.0) mmol/L BUN (8-26) mg/dL Creatinine (0.70-1.30) mg/dL Est Cr Clr Drug Dosing mL/min Estimated GFR (MDRD) (>60) MLS/MIN BUN/Creatinine Ratio (6-25) Glucose (74-100) mg/dL Lactic Acid 1.63 (0.90-1.70) mmol/L Calcium (8.5-10.1) mg/dL Total Bilirubin (0.0-1.0) mg/dL AST (15-37) U/L ALT (12-78) U/L Alkaline Phosphatase (46-116) U/L Total Protein (6.4-8.2) g/dL Albumin (3.4-5.0) g/dL Globulin (2.2-4.2) g/dL Albumin/Globulin Ratio (0.8-2.0) Urine Color Yellow Urine Appearance Clear (CLEAR) Urine pH 7.0 (5.0-8.0) Ur Specific [place] 1.015 (1.003-1.030) Urine Protein Negative (NEGATIVE) mg/dL Urine Glucose (UA) Negative (NEGATIVE) mg/dL Urine Ketones Negative (NEGATIVE) mg/dL Urine Occult Blood Negative (NEGATIVE) Urine Nitrite Negative (NEGATIVE) Urine Bilirubin Negative (NEGATIVE) Urine Urobilinogen 0.2 (0.2-1.0) E.U./dL Ur Leukocyte Esterase Negative (NEGATIVE) Urine RBC Not seen /HPF Urine WBC Not seen /HPF 10/16/18 10/17/18 Range/Units Unknown 07:10 WBC 39.8 H* (4.0-11.0) K/uL RBC 4.22 L (4.50-6.50) M/uL Hgb 12.7 L (13.0-18.0) g/dL Hct 38.5 L (40.0-54.0) % MCV 91 (76-96) fL MCH 30.1 (27.0-32.0) pg MCHC 33.0 (31.0-35.0) g/dL RDW 14.9 (11.0-16.0) % Plt Count 289 (150-400) K/uL MPV 10.7 H (6.0-10.0) fL Add Manual Diff Yes Neutrophils % (Manual) 15.0 L (45.0-70.0) % Band Neutrophils % % Lymphocytes % (Manual) 75.0 H (20.0-40.0) % Monocytes % (Manual) 9.0 (3.0-10.0) % Eosinophils % (Manual) 1.0 (1.0-5.0) % Platelet Estimate Adequate Sodium 138 (136-145) mmol/L Potassium 4.5 (3.5-5.1) mmol/L Chloride 99 (98-107) mmol/L Carbon Dioxide 30.4 (21.0-32.0) mmol/L Anion Gap 13.1 (5.0-15.0) mmol/L BUN 16 D (8-26) mg/dL Creatinine 0.95 (0.70-1.30) mg/dL Est Cr Clr Drug Dosing 48.50 mL/min Estimated GFR (MDRD) > 60 (>60) MLS/MIN BUN/Creatinine Ratio 16.8 (6-25) Glucose 115 H D (74-100) mg/dL Lactic Acid (0.90-1.70) mmol/L Calcium 9.0 (8.5-10.1) mg/dL Total Bilirubin 0.4 (0.0-1.0) mg/dL AST 20 (15-37) U/L ALT 37 (12-78) U/L Alkaline Phosphatase 70 (46-116) U/L Total Protein 6.7 (6.4-8.2) g/dL Albumin 3.9 (3.4-5.0) g/dL Globulin 2.8 (2.2-4.2) g/dL Albumin/Globulin Ratio 1.4 (0.8-2.0) Urine Color Urine Appearance (CLEAR) Urine pH (5.0-8.0) Ur Specific [place] (1.003-1.030) Urine Protein (NEGATIVE) mg/dL Urine Glucose (UA) (NEGATIVE) mg/dL Urine Ketones (NEGATIVE) mg/dL Urine Occult Blood (NEGATIVE) Urine Nitrite (NEGATIVE) Urine Bilirubin (NEGATIVE) Urine Urobilinogen (0.2-1.0) E.U./dL Ur Leukocyte Esterase (NEGATIVE) Urine RBC /HPF Urine WBC /HPF Med Orders - Current: Current Medications Acetaminophen (Tylenol Arthritis Pain) 650 mg PO Q8HR [facility] Albuterol (Ventolin Hfa) gm INH Q4H PRN PRN Reason: Congestion Albuterol/Ipratropium (Duoneb 3.0-0.5 Mg/3 Ml) 3 ml NEB Q4H PRN PRN Reason: wheezing Last Admin: 10/16/18 15:00 Dose: 3 ml Aspirin (Halfprin) 81 mg PO QPM [facility] Atorvastatin Calcium (Lipitor) 40 mg PO BEDTIME [facility] Clopidogrel Bisulfate (Plavix) 75 mg PO DAILY [facility] Furosemide (Lasix) 20 mg PO DAILY [facility] Sodium Chloride (Normal Saline) 1,000 mls @ 30 mls/hr IV ASDIRECTED [facility] Levofloxacin/Dextrose (Levaquin In D5w 750 Mg/150 Ml) 150 mls @ 100 mls/hr IV DAILY [facility] Levothyroxine Sodium (Synthroid) 88 mcg PO ACBREAKFAST [facility] Metoprolol Tartrate (Lopressor) 25 mg PO DAILY [facility] Non-Formulary Medication (Multivitamin [Men's Multi-Vitamin]) 1 each PO 1200 [facility] Non-Formulary Medication (Ubidecarenone [Co Q-10]) 200 mg PO 1200 [facility] Omeprazole (Omeprazole) 40 mg PO ACBREAKFAST [facility] Sodium Chloride (Saline Flush) 10 ml FLUSH ASDIRECTED PRN PRN Reason: Keep Vein Open Tamsulosin HCl (Flomax) 0.4 mg PO DAILY@1200 [facility] Discontinued Medications Albuterol/Ipratropium (Duoneb 3.0-0.5 Mg/3 Ml) 3 ml NEB Q4H [facility] Piperacillin Sod/Tazobactam (Sod 3.375 gm/ Sodium Chloride) 100 mls @ 100 mls/ hr IV Q6H [facility] Last Admin: 10/17/18 08:40 Dose: Not Given - Exam General: Alert, Oriented, Cooperative HEENT: Pupils Equal, Pupils Reactive Neck: Supple Lungs: Decreased Breath Sounds, Crackles, Rales, Wheezing Cardiovascular: Regular Rate, Regular Rhythm GI/Abdominal Exam: Normal Bowel Sounds, Soft, Non-Tender Skin: Warm, Dry, Intact Neurological: No New Focal Deficit Psy/Mental Status: Alert, Normal Affect, Normal Mood - Problem List & Annotations (1) Leukocytosis SNOMED Code(s): 782743010, 856121790 Code(s): D72.829 - ELEVATED WHITE BLOOD CELL COUNT, UNSPECIFIED Status: Acute Priority: High Current Visit: Yes (2) Leukocytosis SNOMED Code(s): 115762118, 414309657 Code(s): D72.829 - ELEVATED WHITE BLOOD CELL COUNT, UNSPECIFIED Status: Acute Current Visit: Yes (3) Pneumonia SNOMED Code(s): 663010819 Code(s): J18.9 - PNEUMONIA, UNSPECIFIED ORGANISM Status: Acute Priority: High Current Visit: Yes - Problem List Review Problem List Initiated/Reviewed/Updated: Yes - My Orders Last 24 Hours: My Active Orders 10/16/18 11:50 May Shower [RC] ASDIRECTED Up With Assistance [RC] ASDIRECTED Sodium Chloride 0.9% [Saline Flush] 10 ml FLUSH ASDIRECTED PRN Peripheral IV Insertion Adult [OM.PC] Routine Resuscitation Status Routine 10/16/18 11:51 Patient Status [ADT] Routine Oxygen Therapy [RC] PRN VTE/DVT Education [RC] Per Unit Routine Vital Signs [RC] 08,12,16,20,00,04 10/16/18 11:53 Ambulate [RC] PER UNIT ROUTINE 10/16/18 12:00 Sodium Chloride 0.9% [Normal Saline] 1,000 ml IV ASDIRECTED 10/16/18 12:05 Albuterol/Ipratropium [DuoNeb 3.0-0.5 MG/3 ML] 3 ml NEB Q4H PRN 10/16/18 12:06 RT Aerosol Therapy [RC] ASDIRECTED 10/16/18 12:30 CULTURE BLOOD [BC] Stat 10/16/18 15:44 RT Aerosol Therapy [RC] ASDIRECTED 10/16/18 Dinner Regular Diet [DIET] 10/17/18 07:10 REFERENCE TEST TO [facility] [REF] Routine 10/17/18 08:00 Levofloxacin/Dextrose 5%-Water [Levaquin in D5W 750 MG/150 ML] 150 ml IV DAILY 10/17/18 08:36 CULTURE SPUTUM + SMEAR [RM] Routine 10/17/18 08:38 Albuterol [Ventolin HFA] 2 inhalation INH Q4H PRN 10/17/18 08:44 Chest 2V [CR] Stat 10/17/18 10:00 Clopidogrel [Plavix] 75 mg PO DAILY Furosemide [Lasix] 20 mg PO DAILY Levothyroxine [Synthroid] 88 mcg PO ACBREAKFAST Metoprolol Tartrate [Lopressor] 25 mg PO DAILY 10/17/18 12:00 Multivitamin [Men's Multi-Vitamin] 1 each PO 1200 Tamsulosin [Flomax] 0.4 mg PO DAILY@1200 Ubidecarenone [Co Q-10] 200 mg PO 1200 10/17/18 14:00 Acetaminophen [Tylenol Arthritis Pain] 650 mg PO Q8HR 10/17/18 20:00 Aspirin [Halfprin] 81 mg PO QPM atorvaSTATin [Lipitor] 40 mg PO BEDTIME 10/18/18 07:00 BASIC METABOLIC PANEL,BMP [CHEM] Routine CBC WITH AUTO DIFF [HEME] Routine Omeprazole 40 mg PO ACBREAKFAST - Assessment Assessment:: WBC increased from yesterday - Plan Plan:: Leukocytosis and pneumonia: Chest x-ray for suspected ongoing pneumonia. Antibiotic changed from Zosyn to Levaquin to target suspected pneumonia. Patient does not appear to be septic at this time. Will continue to monitor blood count. Will continue IV antibiotic therapy and PRN nebs treatments.
[2018-10-17] MEDS: Clopidogrel 75 MG Tab PO SCH (09:04)
[2018-10-17] MEDS: Levothyroxine 88 MCG Tab PO SCH (09:04)
[2018-10-17] MEDS: Furosemide 20 MG Tab PO SCH (09:04)
[2018-10-17] MEDS: Metoprolol Tartrate 25 MG Tab PO SCH (09:04)
[2018-10-17] MEDS: Levofloxacin/Dextrose 5%-Water 150 ML IV SCH (10:04)
--- NOTE | 2018-10-17 10:53 | CR ---
DATE OF SERVICE: 10/17/18 CLINICAL DATA: Increased WBC, shortness of beath, cough. PA AND LATERAL CHEST: The patient is status post median sternotomy. The heart size is normal. The aorta is ectatic. There are mild interstitial changes in both lower lungs. There is a nodular density in the right lower lung. Chest CT is recommended to further evaluate it. No pneumothorax. No pleural effusions. [id number] [facility]
[2018-10-17] MEDS: Multivitamins with Iron/Calcium/Folic Acid/Minerals Tab PO SCH (12:59)
[2018-10-17] MEDS: Non-Formulary Medication 1 Each (Ubidecarenone [Co Q-10] 200 MG) PO SCH (12:59)
[2018-10-17] MEDS: Tamsulosin 0.4 MG Cap.ER PO SCH (12:59)
[2018-10-17] MEDS: Acetaminophen 650 MG Tab.ER PO SCH (15:05)
[2018-10-17] MEDS: Albuterol/Ipratropium 3.0-0.5 MG/3 ML Neb Soln NEB PRN (15:09)
--- NOTE | 2018-10-17 18:23 | CT ---
DATE OF SERVICE: 10/17/18 CLINICAL DATA: right lung nodule UNENHANCED CHEST CT: No priors. The patient is status post median sternotomy. There are emphysematous changes throughout both lungs. There are scattered reticular opacities. There is atelectatic change in the dependent portion of both lungs. There is a subtle 7 mm ground-glass opacity noted within the right lower lobe superior segment. The lungs are otherwise clear. No pleural effusions. No pneumothorax. The heart size is normal. There are coronary artery calcifications. No significant pericardial effusion. There are atherosclerotic changes throughout the thoracic aorta. The ascending aorta is mildly prominent. It measures 3.7 cm in diameter. There is a single enlarged lymph node in the precarinal space. It measures 11 mm in its short axis. No other adenopathy. There is a 10 mm low density lesion in the left lobe of the liver medial segment. Its margins are not well defined. Dedicated hepatic CT with contrast enhancement should be considered. There is a small hiatal hernia. There is mural thickening within the distal esophagus. Esophagitis should be considered. No other significant findings. IMPRESSION: 1. A 7 mm ground-glass opacity in the right lower lobe. Three to six month followup CT is recommended. 2. Small low density lesion left lobe of liver with ill-defined margins. Dedicated hepatic CT with contrast enhancement is recommended. 3. Other findings as discussed above. [id number] [facility]
[2018-10-17] MEDS: Aspirin 81 MG Tab.EC PO SCH (19:49)
[2018-10-17] MEDS: atorvaSTATin 40 MG Tab PO SCH (19:49)
[2018-10-18] MEDS: Acetaminophen 650 MG Tab.ER PO SCH ×4 (02:32→23:34)
[2018-10-18] MEDS ORDERED: Omeprazole 40 MG Cap.CR PO SCH (07:00)
[2018-10-18] MEDS ORDERED: COQ10 PO SCH (08:00)
[2018-10-18] MEDS ORDERED: Omeprazole 20 MG Cap.CR ONE (08:15)
[2018-10-18] MEDS: Levofloxacin/Dextrose 5%-Water 150 ML IV SCH (08:19)
[2018-10-18] MEDS: Levothyroxine 88 MCG Tab PO SCH (08:19)
[2018-10-18] MEDS: Furosemide 20 MG Tab PO SCH (08:20)
[2018-10-18] MEDS: Clopidogrel 75 MG Tab PO SCH (08:20)
[2018-10-18] MEDS: Metoprolol Tartrate 25 MG Tab PO SCH (08:20)
--- NOTE | 2018-10-18 08:41 | PCM.PN ---
- General Info Date of Service: 10/18/18 Admission Dx/Problem (Free Text): elevated WBC Subjective Update: Patient up eating breakfast with his during provider rounding and patient states he is "feeling better". Patient has been up during the day and he is able to ambulate. Patient continues to have cough and productive sputum, although patient states this has improved. Pain Score: 0 - Review of Systems General: Reports: No Symptoms HEENT: Reports: No Symptoms Pulmonary: Reports: Cough, Sputum. Denies: Shortness of Breath Cardiovascular: Reports: No Symptoms Gastrointestinal: Denies: Abdominal Pain, Decreased Appetite, Nausea, Vomiting - Patient Data Vitals - Most Recent: Last Vital Signs Temp 97.9 F 10/18/18 03:12 Pulse 96 10/18/18 08:20 Resp 18 10/18/18 03:12 BP 113/70 10/18/18 08:20 Pulse Ox 95 10/18/18 03:12 Weight - Most Recent: 152 lb I&O - Last 24 Hours: Intake & Output 10/17/18 10/18/18 10/18/18 22:59 06:59 14:59 Intake Total 1690 600 Output Total 1500 925 Balance 190 -325 Lab Results Last 24 Hours: Laboratory Results - last 24 hr 10/18/18 10/18/18 Range/Units 07:00 07:00 WBC 27.5 H* D (4.0-11.0) K/uL RBC 4.10 L (4.50-6.50) M/uL Hgb 12.7 L (13.0-18.0) g/dL Hct 37.1 L (40.0-54.0) % MCV 91 (76-96) fL MCH 31.0 (27.0-32.0) pg MCHC 34.2 (31.0-35.0) g/dL RDW 14.8 (11.0-16.0) % Plt Count 286 (150-400) K/uL MPV 10.7 H (6.0-10.0) fL Neut % (Auto) Not Reportable Lymph % (Auto) Not Reportable [place] % (Auto) Not Reportable Eos % (Auto) 3.0 (1.0-5.0) % Baso % (Auto) 0.1 (0.0-0.5) % Neut # (Auto) Not Reportable Lymph # (Auto) Not Reportable [place] # (Auto) Not Reportable Eos # (Auto) 0.82 H (0.04-0.40) K/uL Baso # (Auto) 0.04 (0.02-0.10) K/uL Add Manual Diff Yes Neutrophils % (Manual) 50.0 (45.0-70.0) % Band Neutrophils % 2.0 % Lymphocytes % (Manual) 38.0 (20.0-40.0) % Monocytes % (Manual) 5.0 (3.0-10.0) % Eosinophils % (Manual) 5.0 (1.0-5.0) % Sodium 136 (136-145) mmol/L Potassium 4.3 (3.5-5.1) mmol/L Chloride 100 (98-107) mmol/L Carbon Dioxide 27.9 (21.0-32.0) mmol/L Anion Gap 12.4 (5.0-15.0) mmol/L BUN 20 D (8-26) mg/dL Creatinine 1.05 (0.70-1.30) mg/dL Est Cr Clr Drug Dosing 43.88 mL/min Estimated GFR (MDRD) > 60 (>60) MLS/MIN BUN/Creatinine Ratio 19.0 (6-25) Glucose 159 H D (74-100) mg/dL Calcium 8.4 L (8.5-10.1) mg/dL Javier Results Last 24 Hours: Microbiology 10/16/18 12:30 Aerobic Blood Culture - Preliminary Blood NO GROWTH AFTER 1 DAY Anaerobic Blood Culture - Preliminary NO GROWTH AFTER 1 DAY Med Orders - Current: Current Medications Acetaminophen (Tylenol Arthritis Pain) 650 mg PO Q8HR [facility] Last Admin: 10/18/18 08:20 Dose: Not Given Albuterol (Ventolin Hfa) 0 gm INH Q4H PRN PRN Reason: Congestion Albuterol/Ipratropium (Duoneb 3.0-0.5 Mg/3 Ml) 3 ml NEB Q4H PRN PRN Reason: wheezing Last Admin: 10/17/18 15:09 Dose: 3 ml Aspirin (Halfprin) 81 mg PO QPM [facility] Last Admin: 10/17/18 19:49 Dose: 81 mg Atorvastatin Calcium (Lipitor) 40 mg PO BEDTIME [facility] Last Admin: 10/17/18 19:49 Dose: 40 mg Clopidogrel Bisulfate (Plavix) 75 mg PO DAILY [facility] Last Admin: 10/18/18 08:20 Dose: 75 mg Furosemide (Lasix) 20 mg PO DAILY [facility] Last Admin: 10/18/18 08:20 Dose: 20 mg Sodium Chloride (Normal Saline) 1,000 mls @ 30 mls/hr IV ASDIRECTED [facility] Last Admin: 10/17/18 10:30 Dose: 30 mls/hr Levofloxacin/Dextrose (Levaquin In D5w 750 Mg/150 Ml) 150 mls @ 100 mls/hr IV DAILY [facility] Last Admin: 10/18/18 08:19 Dose: 100 mls/hr Lactobacillus Acidophilus (Acidolphilus Extra Strength) 1 tab PO DAILY [facility] Levothyroxine Sodium (Synthroid) 88 mcg PO ACBREAKFAST [facility] Last Admin: 10/18/18 08:19 Dose: 88 mcg Metoprolol Tartrate (Lopressor) 25 mg PO DAILY [facility] Last Admin: 10/18/18 08:20 Dose: 25 mg Multivitamins/Minerals (Thera M Plus) 1 tab PO 1200 [facility] Last Admin: 10/17/18 12:59 Dose: 1 tab Non-Formulary Medication (Ubidecarenone [Co Q-10]) 200 mg PO 1200 [facility] Last Admin: 10/17/18 12:59 Dose: 200 mg Omeprazole (Omeprazole) 40 mg PO ACBREAKFAST [facility] Sodium Chloride (Saline Flush) 10 ml FLUSH ASDIRECTED PRN PRN Reason: Keep Vein Open Tamsulosin HCl (Flomax) 0.4 mg PO DAILY@1200 [facility] Last Admin: 10/17/18 12:59 Dose: 0.4 mg Discontinued Medications Albuterol/Ipratropium (Duoneb 3.0-0.5 Mg/3 Ml) 3 ml NEB Q4H [facility] Piperacillin Sod/Tazobactam (Sod 3.375 gm/ Sodium Chloride) 100 mls @ 100 mls/ hr IV Q6H [facility] Last Admin: 10/17/18 08:40 Dose: Not Given Omeprazole (Omeprazole) 40 mg PO ACBREAKFAST [facility] Omeprazole (Omeprazole) Confirm Administered Dose 40 mg .ROUTE .STK-MED ONE Stop: 10/18/18 08:16 Last Admin: 10/18/18 08:21 Dose: 40 mg - Exam Quality Assessment: No: Supplemental Oxygen General: Alert, Oriented, Cooperative, No Acute Distress Lungs: Decreased Breath Sounds, Crackles, Wheezing Cardiovascular: Regular Rate, Regular Rhythm GI/Abdominal Exam: Normal Bowel Sounds, Soft, Non-Tender - Problem List & Annotations (1) Leukocytosis SNOMED Code(s): 550738781, 640092762 Code(s): D72.829 - ELEVATED WHITE BLOOD CELL COUNT, UNSPECIFIED Status: Acute Priority: High Current Visit: Yes (2) Pneumonia SNOMED Code(s): 525006192 Code(s): J18.9 - PNEUMONIA, UNSPECIFIED ORGANISM Status: Acute Priority: High Current Visit: Yes - Problem List Review Problem List Initiated/Reviewed/Updated: Yes - My Orders Last 24 Hours: My Active Orders 10/17/18 08:00 Levofloxacin/Dextrose 5%-Water [Levaquin in D5W 750 MG/150 ML] 150 ml IV DAILY 10/17/18 08:38 Albuterol [Ventolin HFA] 0 gm INH Q4H PRN 10/17/18 10:00 Clopidogrel [Plavix] 75 mg PO DAILY Furosemide [Lasix] 20 mg PO DAILY Levothyroxine [Synthroid] 88 mcg PO ACBREAKFAST Metoprolol Tartrate [Lopressor] 25 mg PO DAILY 10/17/18 12:00 Multivitamins w-Iron/Ca/FA/Min [Thera M Plus] 1 tab PO 1200 Tamsulosin [Flomax] 0.4 mg PO DAILY@1200 Ubidecarenone [Co Q-10] 200 mg PO 1200 10/17/18 14:00 Acetaminophen [Tylenol Arthritis Pain] 650 mg PO Q8HR 10/17/18 14:44 CULTURE SPUTUM + SMEAR [RM] Routine 10/17/18 20:00 Aspirin [Halfprin] 81 mg PO QPM atorvaSTATin [Lipitor] 40 mg PO BEDTIME 10/18/18 07:00 Omeprazole 40 mg PO ACBREAKFAST 10/18/18 07:40 CULTURE MRSA SURVEY [RM] Routine 10/18/18 08:25 Abdomen w Cont [CT] Routine Chest w Cont [CT] Routine 10/19/18 08:00 Acidophilus/Lactobac Spor [Acidolphilus Extra Strength] 1 tab PO DAILY - Assessment Assessment:: WBC has decreased from yesterday. Lung sounds less diminished and less wheezing present. - Plan Plan:: Leukocytosis and pneumonia: WBC has significantly decreased. Will continue IV Levaquin. If significant decrease in WBC count tomorrow (10/19/18) and continued improvement in patient status, patient will be discharged to home tomorrow on oral antibiotics. CT with contrast of chest and abdomen will be completed today due to findings of nodules on lung and liver.
[2018-10-18] MEDS: Omeprazole 20 MG Cap.CR PO SCH (08:45)
[2018-10-18] MEDS ORDERED: Sodium Chloride 0.9% 50 ML SDV FLUSH ONE (08:49)
[2018-10-18] MEDS ORDERED: Sodium Chloride 0.9% 10 ML Syringe FLUSH PRN (08:50)
[2018-10-18] MEDS ORDERED: Iopamidol 612 MG/ML 100 ML Bottle IV SCH (09:00)
[2018-10-18] MEDS: Tamsulosin 0.4 MG Cap.ER PO SCH (11:56)
[2018-10-18] MEDS: Multivitamins with Iron/Calcium/Folic Acid/Minerals Tab PO SCH (11:56)
[2018-10-18] MEDS: Non-Formulary Medication 1 Each (Ubidecarenone [Co Q-10] 200 MG) PO SCH (11:56)
[2018-10-18] MEDS: Lactobacillus Acidophilus/Lactobacillus Sporogenes (Probiotic) Tab PO SCH (11:56)
[2018-10-18] MEDS: Albuterol/Ipratropium 3.0-0.5 MG/3 ML Neb Soln NEB PRN (14:56)
[2018-10-18] MEDS: Aspirin 81 MG Tab.EC PO SCH (19:51)
[2018-10-18] MEDS: atorvaSTATin 40 MG Tab PO SCH (19:51)
[2018-10-19] MEDS: Levothyroxine 88 MCG Tab PO SCH (06:30)
[2018-10-19] MEDS: Omeprazole 20 MG Cap.CR PO SCH (06:31)
[2018-10-19] MEDS: Acetaminophen 650 MG Tab.ER PO SCH ×3 (07:35→23:14)
[2018-10-19] MEDS: Clopidogrel 75 MG Tab PO SCH (07:48)
[2018-10-19] MEDS: Levofloxacin/Dextrose 5%-Water 150 ML IV SCH (07:48)
[2018-10-19] MEDS: Metoprolol Tartrate 25 MG Tab PO SCH (07:50)
[2018-10-19] MEDS: Furosemide 20 MG Tab PO SCH (07:51)
[2018-10-19] MEDS ORDERED: Sodium Chloride 0.9% 250 ML IV SCH (09:00)
--- NOTE | 2018-10-19 09:51 | PCM.PN ---
- General Info Date of Service: 10/19/18 Admission Dx/Problem (Free Text): elevated WBC Subjective Update: Patient continues to improve. Patient continues to be up during the day, and patient and his report improvement in symptoms of cough, congestion, and shortness of breath. Functional Status: Reports: Pain Controlled Pain Score: 0 - Review of Systems General: Reports: Appetite HEENT: Reports: No Symptoms Pulmonary: Reports: Shortness of Breath, Cough, Sputum. Denies: Wheezing Cardiovascular: Reports: No Symptoms Gastrointestinal: Reports: No Symptoms - Patient Data Vitals - Most Recent: Last Vital Signs Temp 97.8 F 10/19/18 07:57 Pulse 107 H 10/19/18 07:57 Resp 16 10/19/18 07:57 BP 130/76 10/19/18 07:57 Pulse Ox 94 L 10/19/18 07:57 Weight - Most Recent: 147 lb 9.6 oz I&O - Last 24 Hours: Intake & Output 10/18/18 10/19/18 10/19/18 22:59 06:59 14:59 Intake Total 1754 180 Balance 1754 180 Lab Results Last 24 Hours: Laboratory Results - last 24 hr 10/19/18 10/19/18 Range/Units 07:45 07:45 WBC 23.4 H* (4.0-11.0) K/uL RBC 4.05 L (4.50-6.50) M/uL Hgb 12.5 L (13.0-18.0) g/dL Hct 36.7 L (40.0-54.0) % MCV 91 (76-96) fL MCH 30.9 (27.0-32.0) pg MCHC 34.1 (31.0-35.0) g/dL RDW 14.6 (11.0-16.0) % Plt Count 281 (150-400) K/uL MPV 10.3 H (6.0-10.0) fL Add Manual Diff Yes Neutrophils % (Manual) 29.0 L (45.0-70.0) % Lymphocytes % (Manual) 65.0 H (20.0-40.0) % Monocytes % (Manual) 2.0 L (3.0-10.0) % Eosinophils % (Manual) 4.0 (1.0-5.0) % Platelet Estimate Adequate Sodium 137 (136-145) mmol/L Potassium 4.3 (3.5-5.1) mmol/L Chloride 101 (98-107) mmol/L Carbon Dioxide 28.2 (21.0-32.0) mmol/L Anion Gap 12.1 (5.0-15.0) mmol/L BUN 14 D (8-26) mg/dL Creatinine 0.93 (0.70-1.30) mg/dL Est Cr Clr Drug Dosing 49.55 mL/min Estimated GFR (MDRD) > 60 (>60) MLS/MIN BUN/Creatinine Ratio 15.1 (6-25) Glucose 150 H (74-100) mg/dL Calcium 8.6 (8.5-10.1) mg/dL Total Bilirubin 0.4 (0.0-1.0) mg/dL AST 17 (15-37) U/L ALT 29 (12-78) U/L Alkaline Phosphatase 59 (46-116) U/L Total Protein 5.6 L (6.4-8.2) g/dL Albumin 3.2 L (3.4-5.0) g/dL Globulin 2.4 (2.2-4.2) g/dL Albumin/Globulin Ratio 1.3 (0.8-2.0) Javier Results Last 24 Hours: Microbiology 10/16/18 12:30 Aerobic Blood Culture - Preliminary Blood NO GROWTH AFTER 2 DAYS Anaerobic Blood Culture - Preliminary NO GROWTH AFTER 2 DAYS 10/17/18 14:44 Gram Stain - Final Sputum - Expectorated Sputum Culture - Preliminary Normal Janessa Med Orders - Current: Current Medications Acetaminophen (Tylenol Arthritis Pain) 650 mg PO Q8HR [facility] Last Admin: 10/19/18 07:35 Dose: Not Given Albuterol (Ventolin Hfa) 0 gm INH Q4H PRN PRN Reason: Congestion Albuterol/Ipratropium (Duoneb 3.0-0.5 Mg/3 Ml) 3 ml NEB Q4H PRN PRN Reason: wheezing Last Admin: 10/18/18 14:56 Dose: 3 ml Aspirin (Halfprin) 81 mg PO QPM [facility] Last Admin: 10/18/18 19:51 Dose: 81 mg Atorvastatin Calcium (Lipitor) 40 mg PO BEDTIME [facility] Last Admin: 10/18/18 19:51 Dose: 40 mg Clopidogrel Bisulfate (Plavix) 75 mg PO DAILY [facility] Last Admin: 10/19/18 07:48 Dose: 75 mg Furosemide (Lasix) 20 mg PO DAILY [facility] Last Admin: 10/19/18 07:51 Dose: 20 mg Sodium Chloride (Normal Saline) 1,000 mls @ 30 mls/hr IV ASDIRECTED [facility] Last Admin: 10/17/18 10:30 Dose: 30 mls/hr Levofloxacin/Dextrose (Levaquin In D5w 750 Mg/150 Ml) 150 mls @ 100 mls/hr IV DAILY [facility] Stop: 10/22/18 23:59 Last Admin: 10/19/18 07:48 Dose: 100 mls/hr Sodium Chloride (Normal Saline) 250 mls @ 30 mls/hr IV ASDIRECTED [facility] Lactobacillus Acidophilus (Acidolphilus Extra Strength) 1 tab PO DAILY@1200 [facility] Last Admin: 10/18/18 11:56 Dose: 1 tab Levothyroxine Sodium (Synthroid) 88 mcg PO ACBREAKFAST [facility] Last Admin: 10/19/18 06:30 Dose: 88 mcg Metoprolol Tartrate (Lopressor) 25 mg PO DAILY [facility] Last Admin: 10/19/18 07:50 Dose: 25 mg Multivitamins/Minerals (Thera M Plus) 1 tab PO 1200 [facility] Last Admin: 10/18/18 11:56 Dose: 1 tab Non-Formulary Medication (Ubidecarenone [Co Q-10]) 200 mg PO 1200 [facility] Last Admin: 10/18/18 11:56 Dose: 200 mg Omeprazole (Omeprazole) 40 mg PO ACBREAKFAST [facility] Last Admin: 10/19/18 06:31 Dose: 40 mg Sodium Chloride (Saline Flush) 10 ml FLUSH ASDIRECTED PRN PRN Reason: Keep Vein Open Last Admin: 10/18/18 20:08 Dose: 10 ml Tamsulosin HCl (Flomax) 0.4 mg PO DAILY@1200 [facility] Last Admin: 10/18/18 11:56 Dose: 0.4 mg Discontinued Medications Albuterol/Ipratropium (Duoneb 3.0-0.5 Mg/3 Ml) 3 ml NEB Q4H [facility] Piperacillin Sod/Tazobactam (Sod 3.375 gm/ Sodium Chloride) 100 mls @ 100 mls/ hr IV Q6H [facility] Last Admin: 10/17/18 08:40 Dose: Not Given Iopamidol (Isovue-300 (61%)) 100 ml IV ASDIRECTED [facility] Stop: 10/18/18 23:59 Omeprazole (Omeprazole) 40 mg PO ACBREAKFAST [facility] Last Admin: 10/18/18 08:44 Dose: Not Given Omeprazole (Omeprazole) Confirm Administered Dose 40 mg .ROUTE .STK-MED ONE Stop: 10/18/18 08:16 Last Admin: 10/18/18 08:21 Dose: 40 mg Sodium Chloride (Normal Saline) 50 ml FLUSH ONETIME ONE Stop: 10/18/18 08:50 Last Admin: 10/18/18 10:40 Dose: 50 ml Sodium Chloride (Saline Flush) 10 ml FLUSH ASDIRECTED PRN PRN Reason: Keep Vein Open Stop: 10/18/18 23:59 Last Admin: 10/18/18 20:08 Dose: 10 ml - Exam General: Alert, Oriented, Cooperative, No Acute Distress Lungs: Decreased Breath Sounds, Crackles, Wheezing Cardiovascular: Regular Rate, Regular Rhythm GI/Abdominal Exam: Normal Bowel Sounds - Problem List & Annotations (1) Leukocytosis SNOMED Code(s): 158495580, 960090074 Code(s): D72.829 - ELEVATED WHITE BLOOD CELL COUNT, UNSPECIFIED Status: Acute Priority: High Current Visit: Yes (2) Pneumonia SNOMED Code(s): 243839991 Code(s): J18.9 - PNEUMONIA, UNSPECIFIED ORGANISM Status: Acute Priority: High Current Visit: Yes - Problem List Review Problem List Initiated/Reviewed/Updated: Yes - My Orders Last 24 Hours: My Active Orders 10/18/18 08:50 Peripheral IV Insertion Adult [OM.PC] Routine 10/18/18 12:00 Acidophilus/Lactobac Spor [Acidolphilus Extra Strength] 1 tab PO DAILY@1200 10/19/18 09:00 Sodium Chloride 0.9% [Normal Saline] 250 ml IV ASDIRECTED 10/20/18 07:00 CBC WITH AUTO DIFF [HEME] Routine COMPREHENSIVE METABOLIC PN,CMP [CHEM] Routine - Assessment Assessment:: WBC has decreased from yesterday. Lung sounds less diminished and less wheezing present. - Plan Plan:: Leukocytosis and pneumonia: WBC has decreased again today. Will continue IV Levaquin. If significant decrease in WBC count tomorrow (10/20/18) and continued improvement in patient status, patient will be discharged to home tomorrow on oral antibiotics. Patient receiving 250 ml fluid bolus today to ensure adequate hydration to kidneys due to administration of Levaquin and IV contrast yesterday (10/18/18) for CT. Patient continues to show improvement.
[2018-10-19] MEDS: Tamsulosin 0.4 MG Cap.ER PO SCH (12:45)
[2018-10-19] MEDS: Lactobacillus Acidophilus/Lactobacillus Sporogenes (Probiotic) Tab PO SCH (12:45)
[2018-10-19] MEDS: Multivitamins with Iron/Calcium/Folic Acid/Minerals Tab PO SCH (12:45)
[2018-10-19] MEDS: Non-Formulary Medication 1 Each (Ubidecarenone [Co Q-10] 200 MG) PO SCH (12:46)
[2018-10-19] MEDS: atorvaSTATin 40 MG Tab PO SCH (19:51)
[2018-10-19] MEDS: Aspirin 81 MG Tab.EC PO SCH (19:51)
[2018-10-20] MEDS: Levothyroxine 88 MCG Tab PO SCH (06:24)
[2018-10-20] MEDS: Omeprazole 20 MG Cap.CR PO SCH (06:24)
[2018-10-20] MEDS: Acetaminophen 650 MG Tab.ER PO SCH (06:25)
[2018-10-20] MEDS: Furosemide 20 MG Tab PO SCH (08:41)
[2018-10-20] MEDS: Levofloxacin/Dextrose 5%-Water 150 ML IV SCH (08:42)
[2018-10-20] MEDS: Clopidogrel 75 MG Tab PO SCH (08:42)
[2018-10-20] MEDS: Metoprolol Tartrate 25 MG Tab PO SCH (08:42)
[2018-10-20 08:43] VITALS: BP 139/68
--- NOTE | 2018-10-20 10:10 | PCM.DCSUM1 ---
Discharge Summary - Discharge Data Discharge Date: 10/20/18 Discharge Disposition: Home, Self-Care 01 Condition: Undetermined - Patient Instructions Diet: Usual Diet as Tolerated Driving: Do Not Drive - Discharge Plan Home Medications: Home Meds Aspirin [Adult Low Dose Aspirin EC] 81 mg PO QPM 11/16/13 [History] Levothyroxine [Synthroid] 88 mcg PO ACBREAKFAST 11/16/13 [History] atorvaSTATin [Lipitor] 40 mg PO BEDTIME 01/13/16 [History] Acetaminophen [Tylenol Arthritis] 650 mg PO Q8HR 08/25/17 [History] Clopidogrel [Plavix] 75 mg PO DAILY 08/25/17 [History] Furosemide [Lasix] 20 mg PO DAILY 08/25/17 [History] Metoprolol Tartrate [Lopressor] 25 mg PO DAILY 08/25/17 [History] Multivitamin [Men's Multi-Vitamin] 1 each PO 1200 08/25/17 [History] Tamsulosin [Flomax] 0.4 mg PO DAILY@1200 08/25/17 [History] Ubidecarenone [Co Q-10] 200 mg PO 1200 08/25/17 [History] Omeprazole 40 mg PO ACBREAKFAST 09/22/18 [History] Albuterol [Ventolin HFA] 2 inhalation INH Q4H PRN inhaler 09/23/18 [Rx] Copper/Ginseng/Saw Palm/Zinc [Prostate Health Formula] 1 each PO BID 10/17/18 [ History] Acidophilus/Lactobac Spor [Acidolphilus X-Strength] 1 tab PO DAILY@1200 tablet 10/20/18 [Rx] Albuterol/Ipratropium [DuoNeb 3.0-0.5 MG/3 ML] 3 ml NEB Q4H PRN neb 10/20/18 [ Rx] Omeprazole 40 mg PO ACBREAKFAST cap.cr 10/20/18 [Rx] - Discharge Summary/Plan Comment DC Time >30 min.: No Discharge Summary/Plan Comment: Counseled on follow up with provider (Henrietta) on Tuesday. Patient counseled on CT results and f/u lung nodule right lower lobe in 3-[address]. Discussed liver lesion and f/u report as directed - likely cyst. Counseled on elevated WBC and follow up smear and pathology. Discussed consideration of CML, CLL and other Leukemias. Patient to f/u closely as directed for further workup or treatment as needed. Patient understands recent findings and discussion was with present. - Patient Data Vitals - Most Recent: Last Vital Signs Temp 36.4 C 10/20/18 03:18 Pulse 95 10/20/18 08:42 Resp 17 10/20/18 03:18 BP 139/68 10/20/18 08:42 Pulse Ox 93 L 10/20/18 03:18 Weight - Most Recent: 66.95 kg I&O - Last 24 hours: Intake & Output 10/19/18 10/20/18 10/20/18 22:59 06:59 14:59 Intake Total 400 360 Balance 400 360 Lab Results - Last 24 hrs: Laboratory Results - last 24 hr 10/20/18 10/20/18 Range/Units 07:15 07:15 WBC 21.7 H* (4.0-11.0) K/uL RBC 3.94 L (4.50-6.50) M/uL Hgb 12.0 L (13.0-18.0) g/dL Hct 35.7 L (40.0-54.0) % MCV 91 (76-96) fL MCH 30.5 (27.0-32.0) pg MCHC 33.6 (31.0-35.0) g/dL RDW 14.8 (11.0-16.0) % Plt Count 274 (150-400) K/uL MPV 10.4 H (6.0-10.0) fL Neut % (Auto) 30.0 L (45.0-70.0) % Lymph % (Auto) 59.0 H (20.0-40.0) % [place] % (Auto) 4.0 (3.0-10.0) % Eos % (Auto) 1.0 (1.0-5.0) % Baso % (Auto) 2.0 H (0.0-0.5) % Add Manual Diff Yes Sodium 137 (136-145) mmol/L Potassium 4.2 (3.5-5.1) mmol/L Chloride 101 (98-107) mmol/L Carbon Dioxide 28.4 (21.0-32.0) mmol/L Anion Gap 11.8 (5.0-15.0) mmol/L BUN 16 (8-26) mg/dL Creatinine 0.95 (0.70-1.30) mg/dL Est Cr Clr Drug Dosing 48.50 mL/min Estimated GFR (MDRD) > 60 (>60) MLS/MIN BUN/Creatinine Ratio 16.8 (6-25) Glucose 156 H (74-100) mg/dL Calcium 8.4 L (8.5-10.1) mg/dL Total Bilirubin 0.4 (0.0-1.0) mg/dL AST 19 (15-37) U/L ALT 28 (12-78) U/L Alkaline Phosphatase 55 (46-116) U/L Total Protein 5.8 L (6.4-8.2) g/dL Albumin 3.1 L (3.4-5.0) g/dL Globulin 2.7 (2.2-4.2) g/dL Albumin/Globulin Ratio 1.2 (0.8-2.0) SHADY Results - Last 24 hrs: Microbiology 10/17/18 14:44 Gram Stain - Final Sputum - Expectorated Sputum Culture - Final Yeast Present 10/16/18 12:30 Aerobic Blood Culture - Preliminary Blood NO GROWTH AFTER 3 DAYS Anaerobic Blood Culture - Preliminary NO GROWTH AFTER 3 DAYS Med Orders - Current: Current Medications Acetaminophen (Tylenol Arthritis Pain) 650 mg PO Q8HR [facility] Last Admin: 10/20/18 06:25 Dose: Not Given Albuterol (Ventolin Hfa) 0 gm INH Q4H PRN PRN Reason: Congestion Albuterol/Ipratropium (Duoneb 3.0-0.5 Mg/3 Ml) 3 ml NEB Q4H PRN PRN Reason: wheezing Last Admin: 10/18/18 14:56 Dose: 3 ml Aspirin (Halfprin) 81 mg PO QPM [facility] Last Admin: 10/19/18 19:51 Dose: 81 mg Atorvastatin Calcium (Lipitor) 40 mg PO BEDTIME [facility] Last Admin: 10/19/18 19:51 Dose: 40 mg Clopidogrel Bisulfate (Plavix) 75 mg PO DAILY [facility] Last Admin: 10/20/18 08:42 Dose: 75 mg Furosemide (Lasix) 20 mg PO DAILY [facility] Last Admin: 10/20/18 08:41 Dose: 20 mg Sodium Chloride (Normal Saline) 1,000 mls @ 30 mls/hr IV ASDIRECTED [facility] Last Admin: 10/17/18 10:30 Dose: 30 mls/hr Levofloxacin/Dextrose (Levaquin In D5w 750 Mg/150 Ml) 150 mls @ 100 mls/hr IV DAILY [facility] Stop: 10/22/18 23:59 Last Admin: 10/20/18 08:42 Dose: 100 mls/hr Sodium Chloride (Normal Saline) 250 mls @ 30 mls/hr IV ASDIRECTED [facility] Last Admin: 10/19/18 10:20 Dose: 30 mls/hr Lactobacillus Acidophilus (Acidolphilus Extra Strength) 1 tab PO DAILY@1200 [facility] Last Admin: 10/19/18 12:45 Dose: 1 tab Levothyroxine Sodium (Synthroid) 88 mcg PO ACBREAKFAST [facility] Last Admin: 10/20/18 06:24 Dose: 88 mcg Metoprolol Tartrate (Lopressor) 25 mg PO DAILY [facility] Last Admin: 10/20/18 08:42 Dose: 25 mg Multivitamins/Minerals (Thera M Plus) 1 tab PO 1200 [facility] Last Admin: 10/19/18 12:45 Dose: 1 tab Non-Formulary Medication (Ubidecarenone [Co Q-10]) 200 mg PO 1200 [facility] Last Admin: 10/19/18 12:46 Dose: 200 mg Omeprazole (Omeprazole) 40 mg PO ACBREAKFAST [facility] Last Admin: 10/20/18 06:24 Dose: 40 mg Sodium Chloride (Saline Flush) 10 ml FLUSH ASDIRECTED PRN PRN Reason: Keep Vein Open Last Admin: 10/18/18 20:08 Dose: 10 ml Tamsulosin HCl (Flomax) 0.4 mg PO DAILY@1200 [facility] Last Admin: 10/19/18 12:45 Dose: 0.4 mg Discontinued Medications Albuterol/Ipratropium (Duoneb 3.0-0.5 Mg/3 Ml) 3 ml NEB Q4H [facility] Piperacillin Sod/Tazobactam (Sod 3.375 gm/ Sodium Chloride) 100 mls @ 100 mls/ hr IV Q6H [facility] Last Admin: 10/17/18 08:40 Dose: Not Given Iopamidol (Isovue-300 (61%)) 100 ml IV ASDIRECTED [facility] Stop: 10/18/18 23:59 Omeprazole (Omeprazole) 40 mg PO ACBREAKFAST [facility] Last Admin: 10/18/18 08:44 Dose: Not Given Omeprazole (Omeprazole) Confirm Administered Dose 40 mg .ROUTE .STK-MED ONE Stop: 10/18/18 08:16 Last Admin: 10/18/18 08:21 Dose: 40 mg Sodium Chloride (Normal Saline) 50 ml FLUSH ONETIME ONE Stop: 10/18/18 08:50 Last Admin: 10/18/18 10:40 Dose: 50 ml Sodium Chloride (Saline Flush) 10 ml FLUSH ASDIRECTED PRN PRN Reason: Keep Vein Open Stop: 10/18/18 23:59 Last Admin: 10/18/18 20:08 Dose: 10 ml
--- NOTE | 2018-10-20 13:52 | CT ---
DATE OF SERVICE: 10/18/18 CLINICAL DATA: Lung and liver lesions. ENHANCED CHEST, ABDOMEN AND PELVIC CT: ENHANCED CHEST CT: Multislice acquisition through the chest with IV contrast was performed. Comparison is made to a prior unenhanced chest CT dated 10/17/18. The patient is status post median sternotomy. The heart size is normal. There are moderate coronary artery calcifications. There are also calcifications in the region of the aortic valve. No pericardial effusion. There are emphysematous changes throughout both lungs. There are scattered reticular opacities in both lungs. The subtle rounded ground glass opacity within the right lower lobe on the prior exam is again seen. No areas of consolidation. No pneumothorax. No pleural effusions. Again noted is the enlarged lymph node in the precarinal space. It is unchanged from the prior exam. There are bilateral hilar nodes. The largest is in the right hilum measuring 14 mm in short axis. These may be reactive. The remainder of the exam is unchanged from the prior. Again, a 3-6 month followup exam is recommended. ENHANCED ABDOMEN AND PELVIC CT: Multislice acquisition through the abdomen and pelvis with IV, but without oral contrast, was performed. There is a small hiatal hernia. There is a 10 mm oval-shaped, sharply transcribed fluid-density lesion within the left lobe of the liver, medial segment, consistent with a benign hepatic cyst. No other focal hepatic lesions. The gallbladder appears normal. No biliary duct dilatation. The spleen appears normal. The pancreas appears normal. The right and left adrenals appear normal. The right and left kidneys enhance symmetrically. No hydronephrosis or hydroureter. The bladder is fluid filled. It appears normal. The prostate is mildly enlarged. No evidence of appendicitis. There is mild diverticulosis of the descending and sigmoid colon. No evidence of diverticulitis. No free air. No free fluid. No dilated loops of bowel. No adenopathy. No aortic aneurysm or dissection. There is degenerative disk disease throughout the lower thoracic and lumbar spine. There are two small focal lytic lesions within the L3 vertebra. Bone scan or unenhanced lumbar spine MRI should be considered. No other lytic or blastic bone lesions. [id number] [facility]
== END 2018-10-20 11:30 | disposition home or self-care (01) | DRG 195 ==
LOC: LB.CLINIC 10:16 → LB.MS 11:20 → UNDOADMIN 11:20 → LB.MS 11:50
PROVIDERS: ADMIT Nurse Practitioner Family; ATTEND Nurse Practitioner Family
DX: J18.9 Pneumonia, unspecified organism (principal); D72.829 Elevated white blood cell count, unspecified; R91.1 Solitary pulmonary nodule; Z79.82 Long term (current) use of aspirin; Z79.52 Long term (current) use of systemic steroids; K76.9 Liver disease, unspecified
CPT/HCPCS: 36415; 71046; 71250; 71260; 74177; 80048; 80053; 81001; 83605; 85025; 87040; 87070; 87205; 88184; 88185; 88185-59; A9270-GY; J1956; J2543; J7030; J7050; J7620-GY

== ENCOUNTER 2018-12-10 17:51 | Emergency (ER) | payer MEDICARE ==
[2018-12-10] MEDS ORDERED: Ketorolac 60 MG/2 ML SDV IM ONE (19:06)
--- NOTE | 2018-12-10 19:12 | EDM.PDOC ---
ED HPI GENERAL MEDICAL PROBLEM - General Chief Complaint: Back Pain or Injury Stated Complaint: CANT GET OUT OF HIS CHAIR Time Seen by Provider: 12/10/18 18:45 Source of Information: Reports: Patient History Limitations: Reports: No Limitations - History of Present Illness INITIAL COMMENTS - FREE TEXT/NARRATIVE: According to patient he was sitting in his recliner and was turning and suddenly felt a sharp pain in his left mid back. Rates his pain at 10/10. Cannot turn or twist. No trauma to the back.No radiation of pain. No nausea or vomiting. No dysuria or frequency.Pt is very anxious. 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 Onset: Today Onset Date: 12/10/18 Onset Time: 17:00 Location: Reports: Back Quality: Reports: Ache Severity: Moderate Improves with: Reports: Rest Worsens with: Reports: Movement Associated Symptoms: Denies: Confusion, Chest Pain, Cough, Diaphoresis, Fever/ Chills, Headaches, Nausea/Vomiting, Rash, Seizure, Shortness of Breath, Syncope , Weakness - Related Data Allergies Allergy/AdvReac Type Severity Reaction Status Date / Time No Known Allergies Allergy Verified 12/10/18 19:14 Home Meds: Home Meds Aspirin [Adult Low Dose Aspirin EC] 81 mg PO QPM 11/16/13 [History] Levothyroxine [Synthroid] 88 mcg PO ACBREAKFAST 11/16/13 [History] atorvaSTATin [Lipitor] 40 mg PO BEDTIME 01/13/16 [History] Acetaminophen [Tylenol Arthritis] 650 mg PO Q8HR 08/25/17 [History] Clopidogrel [Plavix] 75 mg PO DAILY 08/25/17 [History] Furosemide [Lasix] 20 mg PO DAILY 08/25/17 [History] Metoprolol Tartrate [Lopressor] 25 mg PO DAILY 08/25/17 [History] Multivitamin [Men's Multi-Vitamin] 1 each PO 1200 08/25/17 [History] Tamsulosin [Flomax] 0.4 mg PO DAILY@1200 08/25/17 [History] Ubidecarenone [Co Q-10] 200 mg PO 1200 08/25/17 [History] Omeprazole 40 mg PO ACBREAKFAST 09/22/18 [History] Albuterol [Ventolin HFA] 2 inhalation INH Q4H PRN inhaler 09/23/18 [Rx] Acidophilus/Lactobac Spor [Acidolphilus X-Strength] 1 tab PO DAILY@1200 tablet 10/20/18 [Rx] Albuterol/Ipratropium [DuoNeb 3.0-0.5 MG/3 ML] 3 ml NEB Q4H PRN neb 10/20/18 [ Rx] Omeprazole 40 mg PO ACBREAKFAST cap.cr 10/20/18 [Rx] Past Medical History HEENT History: Reports: Impaired Vision, Macular Degeneration, Other (See Below) 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 Cardiovascular History: Reports: Bypass, CAD, High Cholesterol, Hypertension, [place] , Stents Respiratory History: Reports: Other (See Below) Other Respiratory History: chronic bronchitis Gastrointestinal History: Reports: Chronic Constipation Genitourinary History: Reports: BPH Musculoskeletal History: Reports: Fracture Neurological History: Reports: CVA, TIA Endocrine/Metabolic History: Reports: Diabetes, Type II, Hypothyroidism, Other ( See Below) Other Endocrine/Metabolic History: diet controled diabetes Oncologic (Cancer) History: Reports: None - Infectious Disease History Infectious Disease History: Reports: Chicken Pox, Measles, Mumps - Past Surgical History HEENT Surgical History: Reports: Cataract Surgery Cardiovascular Surgical History: Reports: Coronary Artery Bypass, Coronary Artery Stent, Vascular Surgery Respiratory Surgical History: Reports: None GI Surgical History: Reports: None Male Surgical History: Reports: None Endocrine Surgical History: Reports: None Neurological Surgical History: Reports: None Musculoskeletal Surgical History: Reports: Shoulder Surgery, Other (See Below) Other Musculoskeletal Surgeries/Procedures:: Bilat shoulder sx, fx arm Social & Family History - Family History Family Medical History: Noncontributory - Caffeine Use Caffeine Use: Reports: Coffee Caffeine Use Comment: 3 cups day ED ROS GENERAL - Review of Systems Review Of Systems: See Below Constitutional: Denies: Fever, Chills HEENT: Denies: Ear Pain, Rhinitis, Throat Pain Respiratory: Denies: Cough, Sputum Cardiovascular: Denies: Chest Pain, Lightheadedness, Syncope Endocrine: Denies: Fatigue GI/Abdominal: Denies: Abdominal Pain, Constipation, Diarrhea, Nausea, Vomiting : Denies: Dysuria, Frequency Musculoskeletal: Reports: Back Pain. Denies: Joint Pain, Joint Swelling Skin: Denies: Bruising, Pruritis, Rash Neurological: Denies: Confusion, Dizziness, Headache, Numbness, Tingling, Weakness ED EXAM, GENERAL - Physical Exam Exam: See Below Exam Limited By: No Limitations General Appearance: Alert, WD/WN, Anxious, Mild Distress Eye Exam: Bilateral Eye: EOMI, PERRL Ears: Normal External Exam, Normal Canal, Hearing Grossly Normal, Normal TMs Ear Exam: Bilateral Ear: Auricle Normal, Canal Normal, TM normal Nose: Normal Inspection, Normal Mucosa, No Blood Throat/Mouth: Normal Inspection, Normal Lips, Normal Teeth, Normal Gums, Normal Oropharynx, Normal Voice, No Airway Compromise Head: Atraumatic, Normocephalic Neck: Normal Inspection, Supple, Non-Tender, Full Range of Motion Respiratory/Chest: No Respiratory Distress, Lungs Clear, Normal Breath Sounds, No Accessory Muscle Use, Chest Non-Tender Cardiovascular: Normal Peripheral Pulses, Regular Rate, Rhythm, No Edema, No Gallop, No JVD, No Murmur, No Rub Back Exam: Normal Inspection, Full Range of Motion, Paraspinal Tenderness (over the right thoracolumbar region). 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 Vital are stable. On exam he does have left midback spasms and tenderness. His lumbar spine x-ray shows degenerative changes. Pt did receive toradol 30mg and his pain did improve. Pt reassured that he has acute back muscle spasms. Advised intermittent heat to the left back 3-4 times daily. Also given home meds toradol 5mg 3 times daily with food. Pain should gradually improve. - Orders/Labs/Meds Orders: Active Orders 24 hr Category Date Time Status Lumbar Spine 2 or 3V [CR] Stat Exams 12/10/18 19:04 Taken Labs: Laboratory Tests 12/10/18 Range/Units 19:16 Urine Color Yellow Urine Appearance Clear (CLEAR) Urine pH 7.0 (5.0-8.0) Ur Specific [place] 1.010 (1.003-1.030) Urine Protein Negative (NEGATIVE) mg/dL Urine Glucose (UA) Negative (NEGATIVE) mg/dL Urine Ketones Negative (NEGATIVE) mg/dL Urine Occult Blood Negative (NEGATIVE) Urine Nitrite Negative (NEGATIVE) Urine Bilirubin Negative (NEGATIVE) Urine Urobilinogen 0.2 (0.2-1.0) E.U./dL Ur Leukocyte Esterase Negative (NEGATIVE) Urine RBC Not seen /HPF Urine WBC Not seen /HPF Meds: Medications Discontinued Medications Generic Name Dose Route Start Last Admin Trade Name Melchor PRN Reason Stop Dose Admin Ketorolac Tromethamine 30 mg 12/10/18 19:06 12/10/18 19:02 Toradol IM 12/10/18 19:07 30 mg ONETIME ONE Administration Departure - Departure Time of Disposition: 21:45 Disposition: Home, Self-Care 01 Condition: Good Clinical Impression: Back muscle spasm - Discharge Information *PRESCRIPTION DRUG MONITORING PROGRAM REVIEWED*: Not Applicable *COPY OF PRESCRIPTION DRUG MONITORING REPORT IN PATIENT LUCIO: Not Applicable Forms: ED Department Discharge Additional Instructions: Pt has sudden onset of left sided mid back pain started while moving in the recliner. Vital are stable. On exam he does have left midback spasms and tenderness. His lumbar spine x-ray shows degenerative changes. Pt did receive toradol 30mg and his pain did improve. Pt reassured that he has acute back muscle spasms. Advised intermittent heat to the left back 3-4 times daily. Also given home meds toradol 5mg 3 times daily with food. Pain should gradually improve. - Problem List & Annotations (1) Back muscle spasm SNOMED Code(s): 828526249 Code(s): M62.830 - MUSCLE SPASM OF BACK Status: Acute - Problem List Review Problem List Initiated/Reviewed/Updated: Yes - My Orders Last 24 Hours: My Active Orders 12/10/18 19:04 Lumbar Spine 2 or 3V [CR] Stat - Assessment/Plan Last 24 Hours: My Active Orders 12/10/18 19:04 Lumbar Spine 2 or 3V [CR] Stat Assessment:: Acute back spasm Plan: Pt has sudden onset of left sided mid back pain started while moving in the recliner. Vital are stable. On exam he does have left midback spasms and tenderness. His lumbar spine x-ray shows degenerative changes. Pt did receive toradol 30mg and his pain did improve. Pt reassured that he has acute back muscle spasms. Advised intermittent heat to the left back 3-4 times daily. Also given home meds toradol 5mg 3 times daily with food. Pain should gradually improve.
[2018-12-10] MEDS ORDERED: Ketorolac 10 MG Tab ONE (19:20)
--- NOTE | 2018-12-11 05:13 | CR ---
DATE OF SERVICE: 12/10/18 CLINICAL DATA: Back pain. LUMBAR SPINE: No priors. There is diffuse osteopenia. There is straightening of the normal lumbar lordosis. This is most likely positional or due to muscle spasm. There is slight compression deformity of the T12 vertebra, age indeterminate. The remaining vertebral bodies are of average height and in good alignment. There degenerative disk disease throughout the lower thoracic and lumbar spine with mild disk space narrowing at multiple levels. There is facet joint hypertrophy in the mid and lower lumbar spine. No other significant findings. [id number] [facility]
== END 2018-12-10 19:51 | disposition home or self-care (01) ==
LOC: LB.ED 17:51
DX: M62.830 Muscle spasm of back (principal); E11.9 Type 2 diabetes mellitus without complications; I10 Essential (primary) hypertension; I25.2 Old myocardial infarction; E03.9 Hypothyroidism, unspecified; I69.351 Hemiplegia and hemiparesis following cerebral infarction affecting right dominant side; Z95.5 Presence of coronary angioplasty implant and graft; Z95.1 Presence of aortocoronary bypass graft; Z79.82 Long term (current) use of aspirin; Z79.899 Other long term (current) drug therapy
CPT/HCPCS: 72100; 81001; 96372; 99284; A0425; A0429; A9270; J1885

== ENCOUNTER 2018-12-12 13:00 | Inpatient (IN) | payer MEDICARE ==
[2018-12-12] MEDS ORDERED: Lidocaine 5% 700 MG Patch TOP ONE (14:27)
--- NOTE | 2018-12-12 14:57 | EDM.PDOC ---
ED HPI GENERAL MEDICAL PROBLEM - General Chief Complaint: Back Pain or Injury Stated Complaint: WEAKNESS; BACK PAIN Time Seen by Provider: 12/12/18 14:00 Source of Information: Reports: Patient History Limitations: Reports: No Limitations - History of Present Illness INITIAL COMMENTS - FREE TEXT/NARRATIVE: Pt is a 88 year old male who presents to the emergency room by EMS for left mid back pain. Apparently patient was seen on 12/10/18 for same complaints. Happened on 12/10/18, when patient was sitting in his recliner and turned to get up , felt a sharp pain in his left mid back. Could not move and hence was brought into the emergency room by EMS. In the emergency room, he did get work up with Lumbar spine xrays, which does show chronic degenerative changes. Also his pain was more over the left lower thoracic and upper lumbar paraspinal muscles. Pt received toradol 30mg which did help with the pain, and was discharged on oral Toradol 5mg 3 times daily and intermittent heat to the back. Pt returns today by EMS, as his pain has not got better, still hurts in his left mid and lower back. No dysuria. Hurts to move his back. He can sleep on his back, but turning and twisting of the back make the pain worse. Rates his pain at 8/10. No fall or trauma associated with onset of pain. Onset Date: 12/10/18 Onset Time: 13:00 Location: Reports: Back Quality: Reports: Ache Severity: Severe Improves with: Reports: None Worsens with: Reports: None Associated Symptoms: Denies: Confusion, Chest Pain, Cough, Diaphoresis, Fever/ Chills, Nausea/Vomiting, Rash, Seizure, Shortness of Breath, Syncope, Weakness Back Pain Score (Numeric/FACES): 10 - Related Data Allergies Allergy/AdvReac Type Severity Reaction Status Date / Time No Known Allergies Allergy Verified 12/12/18 13:47 Home Meds: Home Meds Aspirin [Adult Low Dose Aspirin EC] 81 mg PO QPM 11/16/13 [History] Levothyroxine [Synthroid] 88 mcg PO ACBREAKFAST 11/16/13 [History] atorvaSTATin [Lipitor] 40 mg PO BEDTIME 01/13/16 [History] Acetaminophen [Tylenol Arthritis] 650 mg PO Q8HR 08/25/17 [History] Clopidogrel [Plavix] 75 mg PO DAILY 08/25/17 [History] Furosemide [Lasix] 20 mg PO DAILY 08/25/17 [History] Metoprolol Tartrate [Lopressor] 25 mg PO DAILY 08/25/17 [History] Multivitamin [Men's Multi-Vitamin] 1 each PO 1200 08/25/17 [History] Tamsulosin [Flomax] 0.4 mg PO DAILY@1200 08/25/17 [History] Ubidecarenone [Co Q-10] 200 mg PO 1200 08/25/17 [History] Omeprazole 40 mg PO ACBREAKFAST 09/22/18 [History] Albuterol [Ventolin HFA] 2 inhalation INH Q4H PRN inhaler 09/23/18 [Rx] Acidophilus/Lactobac Spor [Acidolphilus X-Strength] 1 tab PO DAILY@1200 tablet 10/20/18 [Rx] Albuterol/Ipratropium [DuoNeb 3.0-0.5 MG/3 ML] 3 ml NEB Q4H PRN neb 10/20/18 [ Rx] Omeprazole 40 mg PO ACBREAKFAST cap.cr 10/20/18 [Rx] Past Medical History HEENT History: Reports: Impaired Vision, Macular Degeneration, Other (See Below) 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 Cardiovascular History: Reports: Bypass, CAD, High Cholesterol, Hypertension, [place] , Stents Respiratory History: Reports: Pneumonia, Recurrent, Other (See Below) Other Respiratory History: chronic bronchitis Gastrointestinal History: Reports: Chronic Constipation Genitourinary History: Reports: BPH Musculoskeletal History: Reports: Fracture Neurological History: Reports: CVA, TIA Endocrine/Metabolic History: Reports: Diabetes, Type II, Hypothyroidism, Other ( See Below) Other Endocrine/Metabolic History: diet controled diabetes Oncologic (Cancer) History: Reports: None - Infectious Disease History Infectious Disease History: Reports: Chicken Pox, Measles, Mumps - Past Surgical History HEENT Surgical History: Reports: Cataract Surgery Cardiovascular Surgical History: Reports: Coronary Artery Bypass, Coronary Artery Stent, Vascular Surgery Respiratory Surgical History: Reports: None GI Surgical History: Reports: None Male Surgical History: Reports: None Endocrine Surgical History: Reports: None Neurological Surgical History: Reports: None Musculoskeletal Surgical History: Reports: Shoulder Surgery, Other (See Below) Other Musculoskeletal Surgeries/Procedures:: Bilat shoulder sx, fx arm Social & Family History - Family History Family Medical History: Noncontributory - Tobacco Use Smoking Status *Q: Never Smoker Second Hand Smoke Exposure: No - Caffeine Use Caffeine Use: Reports: Coffee Caffeine Use Comment: 3 cups day - Recreational Drug Use Recreational Drug Use: No ED ROS GENERAL - Review of Systems Review Of Systems: See Below Constitutional: Denies: Fever, Chills HEENT: Denies: Ear Pain, Rhinitis, Throat Pain Respiratory: Denies: Shortness of Breath, Pleuritic Chest Pain, Cough, Sputum Cardiovascular: Denies: Chest Pain, Lightheadedness GI/Abdominal: Denies: Abdominal Pain, Constipation, Diarrhea, Nausea, Vomiting : Denies: Dysuria, Frequency Musculoskeletal: Reports: Back Pain. Denies: Joint Pain, Joint Swelling Skin: Denies: Bruising, Pruritis, Rash Neurological: Denies: Confusion, Dizziness, Headache, Numbness, Tingling ED EXAM, GENERAL - Physical Exam Exam: See Below Exam Limited By: No Limitations General Appearance: Alert, WD/WN, Anxious, Mild Distress Eye Exam: Bilateral Eye: EOMI, PERRL Ears: Normal External Exam, Normal Canal, Hearing Grossly Normal, Normal TMs Ear Exam: Bilateral Ear: Auricle Normal, Canal Normal, TM normal Nose: Normal Inspection, Normal Mucosa, No Blood Throat/Mouth: Normal Inspection, Normal Lips, Normal Teeth, Normal Gums, Normal Oropharynx, Normal Voice, No Airway Compromise Head: Atraumatic, Normocephalic Neck: Normal Inspection, Supple, Non-Tender, Full Range of Motion Respiratory/Chest: No Respiratory Distress, Lungs Clear, Normal Breath Sounds, No Accessory Muscle Use, Chest Non-Tender Cardiovascular: Normal Peripheral Pulses, Regular Rate, Rhythm, No Edema, No Gallop, No JVD, No Murmur, No Rub Back Exam: Normal Inspection, Muscle Spasm (left lower thoracic and lumbar region), Paraspinal Tenderness (lower thoracic and upper lumbar region). No: CVA Tenderness (R), CVA Tenderness (L), Vertebral Tenderness Course - Vital Signs Text/Narrative:: Pt was seen for the same reason 2 days ago. He has had left mid back muscle spasm with pain, caused by him trying to get out of the recliner. Pt felt better with toradol injection , but pills he claims are not helping. Apparently he is having very minimal mobility due to pain. Most of his pain is localized. Pt appears to be in significant difficulty, unable to do his ADLs. Plan is to admit patient for observation. Will start him on 5% lidoderm patch, on 12 hrs and off 12 hrs to see if it will help with his pain. Also could try flexeril 10mg at bedtime too. Intermittent heat. Might need to start physical therapy once there is some improvement in pain to get to do his ADLs and discharge. Last Recorded V/S: Last Vital Signs Temp 97.7 F 12/12/18 13:30 Pulse 83 12/12/18 13:30 Resp 17 12/12/18 13:30 BP 158/82 H 12/12/18 13:30 Pulse Ox 100 12/12/18 13:30 - Orders/Labs/Meds Meds: Medications Discontinued Medications Generic Name Dose Route Start Last Admin Trade Name Melchor PRN Reason Stop Dose Admin Lidocaine 700 mg 12/12/18 14:27 12/12/18 14:40 Lidoderm 5% TOP 12/12/18 14:28 700 mg ONETIME ONE Administration Departure - Departure Time of Disposition: 15:00 Disposition: Refer to Observation Condition: Fair Clinical Impression: Acute left-sided back pain - Discharge Information *PRESCRIPTION DRUG MONITORING PROGRAM REVIEWED*: Not Applicable *COPY OF PRESCRIPTION DRUG MONITORING REPORT IN PATIENT LUCIO: Not Applicable Referrals: PCP,None [Primary Care Provider] - - Problem List & Annotations (1) Back muscle spasm SNOMED Code(s): 378299973 Code(s): M62.830 - MUSCLE SPASM OF BACK Status: Acute Current Visit: No (2) Acute left-sided back pain SNOMED Code(s): 240852773 Code(s): M54.9 - DORSALGIA, UNSPECIFIED Status: Acute Current Visit: Yes - Problem List Review Problem List Initiated/Reviewed/Updated: Yes - Assessment/Plan Assessment:: Acute left sided back pain with spasms Plan: Pt was seen for the same reason 2 days ago. He has had left mid back muscle spasm with pain, caused by him trying to get out of the recliner. Pt felt better with toradol injection , but pills he claims are not helping. Apparently he is having very minimal mobility due to pain. Most of his pain is localized. Pt appears to be in significant difficulty, unable to do his ADLs. Plan is to admit patient for observation. Will start him on 5% lidoderm patch, on 12 hrs and off 12 hrs to see if it will help with his pain. Also could try flexeril 10mg at bedtime too. Intermittent heat. Might need to start physical therapy once there is some improvement in pain to get to do his ADLs and discharge.
[2018-12-12] MEDS ORDERED: Albuterol 8 GM Inhaler INH PRN (15:10)
[2018-12-12] MEDS: Metoprolol Tartrate 25 MG Tab PO SCH (17:00)
[2018-12-12] MEDS: Cyclobenzaprine 10 MG Tab PO SCH (19:44)
[2018-12-12] MEDS: Aspirin 81 MG Tab.EC PO SCH (19:44)
[2018-12-12] MEDS: atorvaSTATin 40 MG Tab PO SCH (19:44)
[2018-12-13] MEDS ORDERED: Non-Formulary Medication 1 Each (Omeprazole [Omeprazole] 40 MG) PO SCH (07:00)
[2018-12-13] MEDS ORDERED: Omeprazole 20 MG Cap.CR PO SCH (07:00)
[2018-12-13] MEDS ORDERED: Levothyroxine 88 MCG Tab ONE (07:06)
[2018-12-13] MEDS: Non-Formulary Medication 1 Each (Omeprazole [Omeprazole] 40 MG) PO SCH (07:20)
[2018-12-13] MEDS: Levothyroxine 50 MCG Tab PO SCH (07:21)
[2018-12-13] MEDS: Lidocaine 5% 700 MG Patch TOP SCH (07:22)
[2018-12-13] MEDS: Metoprolol Tartrate 25 MG Tab PO SCH (08:16)
[2018-12-13] MEDS: Furosemide 20 MG Tab PO SCH (08:16)
[2018-12-13] MEDS: Clopidogrel 75 MG Tab PO SCH (08:17)
[2018-12-13] MEDS ORDERED: Triamcinolone Acetonide 40 MG/ML 1 ML MDV INJECT ONE (08:35)
[2018-12-13] MEDS ORDERED: Bupivacaine 0.5% 10 ML SDV INJECT ONE (08:37)
--- NOTE | 2018-12-13 08:52 | PCM.PN ---
- General Info Date of Service: 12/13/18 Subjective Update: This is a pleasant 88yo M here for mid back pain. He denies pain at rest but with palpation and movement he states the pain is severe and debilitating. He recalls having this pain for the past month and maybe longer with no improvement and feeling that it is worse. He has difficulty with slight movement even when sitting that debilitates him. - Review of Systems General: Reports: No Symptoms HEENT: Reports: No Symptoms Pulmonary: Reports: No Symptoms Cardiovascular: Reports: No Symptoms Gastrointestinal: Reports: No Symptoms Genitourinary: Reports: No Symptoms Musculoskeletal: Reports: Back Pain Skin: Reports: No Symptoms Neurological: Reports: No Symptoms Psychiatric: Reports: No Symptoms - Patient Data Vitals - Most Recent: Last Vital Signs Temp 36.7 C 12/13/18 07:25 Pulse 92 12/13/18 08:16 Resp 24 H 12/13/18 07:25 BP 147/88 H 12/13/18 08:16 Pulse Ox 96 12/13/18 07:25 Weight - Most Recent: 69.853 kg I&O - Last 24 Hours: Intake & Output 12/12/18 12/13/18 12/13/18 22:59 06:59 14:59 Intake Total 600 200 Output Total 1450 1000 Balance -850 -800 Med Orders - Current: Current Medications Albuterol (Ventolin Hfa) 8 gm INH Q4H PRN PRN Reason: Congestion Albuterol/Ipratropium (Duoneb 3.0-0.5 Mg/3 Ml) 3 ml NEB Q4H PRN PRN Reason: wheezing Aspirin (Halfprin) 81 mg PO QPM [facility] Last Admin: 12/12/18 19:44 Dose: 81 mg Atorvastatin Calcium (Lipitor) 40 mg PO BEDTIME [facility] Last Admin: 12/12/18 19:44 Dose: 40 mg Clopidogrel Bisulfate (Plavix) 75 mg PO DAILY [facility] Last Admin: 12/13/18 08:17 Dose: 75 mg Cyclobenzaprine HCl (Flexeril) 10 mg PO BEDTIME [facility] Last Admin: 12/12/18 19:44 Dose: 10 mg Furosemide (Lasix) 20 mg PO DAILY [facility] Last Admin: 12/13/18 08:16 Dose: 20 mg Lactobacillus Acidophilus (Acidolphilus Extra Strength) 1 tab PO DAILY@1200 [facility] Levothyroxine Sodium (Synthroid) 88 mcg PO ACBREAKFAST [facility] Last Admin: 12/13/18 07:21 Dose: 88 mcg Lidocaine (Lidoderm 5%) 700 mg TOP DAILY [facility] Last Admin: 12/13/18 07:22 Dose: 700 mg Metoprolol Tartrate (Lopressor) 25 mg PO DAILY [facility] Last Admin: 12/13/18 08:16 Dose: 25 mg Miscellaneous Information (Remove Patch) 1 ea TRDERM Q24H [facility] Non-Formulary Medication (Multivitamin [Men's Multi-Vitamin]) 1 each PO 1200 [facility] Non-Formulary Medication (Ubidecarenone [Co Q-10]) 200 mg PO 1200 [facility] Non-Formulary Medication (Omeprazole [Omeprazole]) 40 mg PO ACBREAKFAST [facility] Last Admin: 12/13/18 07:20 Dose: 40 mg Tamsulosin HCl (Flomax) 0.4 mg PO DAILY@1200 [facility] Discontinued Medications Bupivacaine HCl (Sensorcaine-Mpf 0.5%) 4 ml INJECT ONETIME ONE Stop: 12/13/18 08:38 Levothyroxine Sodium (Synthroid) Confirm Administered Dose 88 mcg .ROUTE .STK- MED ONE Stop: 12/13/18 07:07 Last Admin: 12/13/18 07:10 Dose: Not Given Lidocaine (Lidoderm 5%) 700 mg TOP ONETIME ONE Stop: 12/12/18 14:28 Last Admin: 12/12/18 14:40 Dose: 700 mg Lidocaine HCl (Xylocaine-Mpf 1%) 4 ml INJECT ONETIME ONE Stop: 12/13/18 08:37 Polyethylene Glycol (Miralax) 17 gm PO BID [facility] Triamcinolone Acetonide (Kenalog-40) 160 mg INJECT ONETIME ONE Stop: 12/13/18 08:36 - Exam General: Alert, Oriented, Cooperative HEENT: Pupils Equal, Pupils Reactive, EOMI Neck: Supple Lungs: Clear to Auscultation, Normal Respiratory Effort Cardiovascular: Regular Rate, Regular Rhythm GI/Abdominal Exam: Normal Bowel Sounds Back Exam: Muscle Spasm, Paraspinal Tenderness, Vertebral Tenderness Extremities: Normal Inspection - Problem List & Annotations (1) Thoracic spine pain SNOMED Code(s): 312491797 Code(s): M54.6 - PAIN IN THORACIC SPINE Status: Acute Current Visit: Yes (2) Paraspinal muscle spasm SNOMED Code(s): 40123234 Code(s): M62.830 - MUSCLE SPASM OF BACK Status: Acute Current Visit: Yes - Problem List Review Problem List Initiated/Reviewed/Updated: Yes - My Orders Last 24 Hours: My Active Orders 12/13/18 08:51 Polyethylene Glycol 3350 [MiraLAX] 17 gm PO BID - Plan Plan:: Patient was given trigger point injections for paraspinal pain. He does have spinal pain and we will obtain a CT for this area. PT/OT referral and further workup pending.
[2018-12-13] MEDS: Polyethylene Glycol 3350 Powder 17 GM Packet PO SCH ×2 (10:22→20:03)
[2018-12-13] MEDS: Non-Formulary Medication 1 Each (Multivitamin [Men's Multi-Vitamin] 1 EACH) PO SCH (12:18)
[2018-12-13] MEDS: Non-Formulary Medication 1 Each (Ubidecarenone [Co Q-10] 200 MG) PO SCH (12:21)
--- NOTE | 2018-12-13 12:24 | CT ---
DATE OF SERVICE: 12/13/2018 CLINICAL DATA: Severe thoracic vertebral pain. Thoracic spine CT: Multislice axial acquisition was performed. Axial images in sagittal and coronal reformations are reviewed. No priors. No acute fracture or dislocation. No focal lytic or blastic bone lesions. There is degenerative disc disease throughout the thoracic spine. No significant central or foraminal stenosis. No other significant findings. MTDD
[2018-12-13] MEDS: Tamsulosin 0.4 MG Cap.ER PO SCH (12:29)
[2018-12-13] MEDS: Lactobacillus Acidophilus/Lactobacillus Sporogenes (Probiotic) Tab PO SCH (12:30)
[2018-12-13] MEDS: Acetaminophen 650 MG Tab.ER PO SCH (14:19)
[2018-12-13] MEDS ORDERED: Polyethylene Glycol 3350 Powder 17 GM Packet PO SCH (20:00)
[2018-12-13] MEDS: atorvaSTATin 40 MG Tab PO SCH (20:01)
[2018-12-13] MEDS: Cyclobenzaprine 10 MG Tab PO SCH (20:01)
[2018-12-13] MEDS: Aspirin 81 MG Tab.EC PO SCH (20:02)
[2018-12-13] MEDS: Remove Patch*LIDODERM TRDERM SCH (20:03)
[2018-12-14] MEDS: Acetaminophen 650 MG Tab.ER PO SCH ×4 (02:53→21:00)
[2018-12-14] MEDS: Non-Formulary Medication 1 Each (Omeprazole [Omeprazole] 40 MG) PO SCH (06:10)
[2018-12-14] MEDS: Levothyroxine 50 MCG Tab PO SCH (06:28)
[2018-12-14] MEDS: Clopidogrel 75 MG Tab PO SCH (07:29)
[2018-12-14] MEDS: Metoprolol Tartrate 25 MG Tab PO SCH (07:30)
[2018-12-14] MEDS: Furosemide 20 MG Tab PO SCH (07:30)
[2018-12-14] MEDS: Polyethylene Glycol 3350 Powder 17 GM Packet PO SCH ×2 (07:31→21:00)
[2018-12-14] MEDS: Lidocaine 5% 700 MG Patch TOP SCH (07:31)
[2018-12-14] MEDS ORDERED: Triamcinolone Acetonide 40 MG/ML 1 ML MDV INJECT ONE (10:30)
[2018-12-14] MEDS ORDERED: Bupivacaine 0.5% 10 ML SDV INJECT SCH (11:00)
[2018-12-14] MEDS ORDERED: Lidocaine 1% PF 2 ML SDV INJECT SCH (11:00)
[2018-12-14] MEDS ORDERED: Triamcinolone Acetonide 40 MG/ML 1 ML MDV IM SCH (11:00)
[2018-12-14] MEDS: Lactobacillus Acidophilus/Lactobacillus Sporogenes (Probiotic) Tab PO SCH (12:06)
[2018-12-14] MEDS: Non-Formulary Medication 1 Each (Ubidecarenone [Co Q-10] 200 MG) PO SCH (12:07)
[2018-12-14] MEDS: Non-Formulary Medication 1 Each (Multivitamin [Men's Multi-Vitamin] 1 EACH) PO SCH (12:07)
[2018-12-14] MEDS: Tamsulosin 0.4 MG Cap.ER PO SCH (12:07)
--- NOTE | 2018-12-14 14:52 | PCM.HP ---
H&P History of Present Illness - General Date of Service: 12/14/18 Admit Problem/Dx: Admission Diagnosis/Problem Admission Diagnosis/Problem Compression fracture of T12 vertebra Source of Information: Patient History Limitations: Reports: No Limitations - History of Present Illness Initial Comments - Free Text/Narative: This is a 88yo M placed in observation for severe mid to lower back pain. Patient is unable to move due to the back pain. He cannot get up or move in bed due to the pain. He has not had this pain in the past. He denies any prior back issues. Prior to the pain he notes movement in his recliner and feeling a sharp pain that just got worse and worse. Lumbar XRAY shows T12 compression fracture. Onset of Symptoms: Reports: Sudden Duration of Symptoms: Reports: Day(s):, Getting Worse Location: Reports: Back Quality: Reports: Stabbing Severity: Severe Improves with: Reports: Immobilization, Rest Worsens with: Reports: Movement Context: Reports: Activity/Exercise Associated Symptoms: Reports: No Other Symptoms Back Pain Score (Numeric/FACES): 7 - Related Data Allergies/Adverse Reactions: Allergies Allergy/AdvReac Type Severity Reaction Status Date / Time No Known Allergies Allergy Verified 12/12/18 13:47 Home Medications: Home Meds Aspirin [Adult Low Dose Aspirin EC] 81 mg PO QPM 11/16/13 [History] Levothyroxine [Synthroid] 88 mcg PO ACBREAKFAST 11/16/13 [History] atorvaSTATin [Lipitor] 40 mg PO BEDTIME 01/13/16 [History] Acetaminophen [Tylenol Arthritis] 650 mg PO Q8HR 08/25/17 [History] Clopidogrel [Plavix] 75 mg PO DAILY 08/25/17 [History] Furosemide [Lasix] 20 mg PO DAILY 08/25/17 [History] Metoprolol Tartrate [Lopressor] 25 mg PO DAILY 08/25/17 [History] Multivitamin [Men's Multi-Vitamin] 1 each PO 1200 08/25/17 [History] Tamsulosin [Flomax] 0.4 mg PO DAILY@1200 08/25/17 [History] Ubidecarenone [Co Q-10] 200 mg PO 1200 08/25/17 [History] Omeprazole 40 mg PO ACBREAKFAST 09/22/18 [History] Albuterol [Ventolin HFA] 2 inhalation INH Q4H PRN inhaler 09/23/18 [Rx] Acidophilus/Lactobac Spor [Acidolphilus X-Strength] 1 tab PO DAILY@1200 tablet 10/20/18 [Rx] Albuterol/Ipratropium [DuoNeb 3.0-0.5 MG/3 ML] 3 ml NEB Q4H PRN neb 10/20/18 [ Rx] Omeprazole 40 mg PO ACBREAKFAST cap.cr 10/20/18 [Rx] Past Medical History HEENT History: Reports: Impaired Vision, Macular Degeneration, Other (See Below) 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 Cardiovascular History: Reports: Bypass, CAD, High Cholesterol, Hypertension, [place] , Stents Respiratory History: Reports: Pneumonia, Recurrent, Other (See Below) Other Respiratory History: chronic bronchitis Gastrointestinal History: Reports: Chronic Constipation Genitourinary History: Reports: BPH Musculoskeletal History: Reports: Fracture Neurological History: Reports: CVA, TIA Endocrine/Metabolic History: Reports: Diabetes, Type II, Hypothyroidism, Other ( See Below) Other Endocrine/Metabolic History: diet controled diabetes Oncologic (Cancer) History: Reports: None - Infectious Disease History Infectious Disease History: Reports: Chicken Pox, Measles, Mumps - Past Surgical History HEENT Surgical History: Reports: Cataract Surgery Cardiovascular Surgical History: Reports: Coronary Artery Bypass, Coronary Artery Stent, Vascular Surgery Respiratory Surgical History: Reports: None GI Surgical History: Reports: None Male Surgical History: Reports: None Endocrine Surgical History: Reports: None Neurological Surgical History: Reports: None Musculoskeletal Surgical History: Reports: Shoulder Surgery, Other (See Below) Other Musculoskeletal Surgeries/Procedures:: Bilat shoulder sx, fx arm Social & Family History - Family History Family Medical History: Noncontributory - Tobacco Use Smoking Status *Q: Never Smoker Second Hand Smoke Exposure: No - Caffeine Use Caffeine Use: Reports: Coffee Caffeine Use Comment: 3 cups day - Recreational Drug Use Recreational Drug Use: No H&P Review of Systems - Review of Systems: Review Of Systems: ROS reveals no pertinent complaints other than HPI. Exam - Exam Exam: See Below - Vital Signs Vital Signs: Last Vital Signs Temp 36.3 C 12/14/18 07:27 Pulse 81 12/14/18 07:30 Resp 18 12/14/18 07:27 BP 179/92 H 12/14/18 07:30 Pulse Ox 96 12/14/18 07:27 Weight: 69.853 kg - Exam General: Alert, Oriented, Cooperative HEENT: PERRLA, Conjunctiva Clear, EACs Clear Neck: Supple, Trachea Midline Lungs: Normal Respiratory Effort, Wheezing Cardiovascular: Regular Rate, Regular Rhythm GI/Abdominal Exam: Normal Bowel Sounds, Soft, Non-Tender Back Exam: Muscle Spasm, Paraspinal Tenderness, Vertebral Tenderness Extremities: Normal Inspection - Patient Data Lab Results Last 24 hrs: Laboratory Results - last 24 hr 12/14/18 12/14/18 Range/Units 07:59 10:54 POC Glucose 181 H (74-110) mg/dL TSH, Ultra Sensitive 2.912 D (0.358-3.740) uIU/mL - Problem List (1) Thoracic spine pain SNOMED Code(s): 153466175 ICD Code: M54.6 - PAIN IN THORACIC SPINE Status: Acute Current Visit: Yes (2) Paraspinal muscle spasm SNOMED Code(s): 80622463 ICD Code: M62.830 - MUSCLE SPASM OF BACK Status: Acute Current Visit: Yes (3) T12 compression fracture SNOMED Code(s): 888115218 ICD Code: S22.080A - WEDGE COMPRESSION FRACTURE OF T11-T12 VERTEBRA, INIT Status: Acute Priority: High Current Visit: Yes Qualifiers: Encounter type: initial encounter Qualified Code(s): S22.080A - Wedge compression fracture of T11-T12 vertebra, initial encounter for closed fracture Problem List Initiated/Reviewed/Updated: Yes Orders Last 24hrs: Active Orders 24 hr Category Date Time Status Patient Status [ADT] Routine ADT 12/14/18 14:50 Ordered Acetaminophen [Tylenol Arthritis Pain] Med 12/13/18 14:00 Active 650 mg PO Q8HR Bupivacaine 0.5% [Sensorcaine-MPF 0.5%] Med 12/14/18 11:00 Active 2 ml INJECT ASDIRECTED Lidocaine 1% [Xylocaine-MPF 1%] Med 12/14/18 11:00 Active 2 ml INJECT ASDIRECTED Morphine Sulfate [Morphine] Med 12/14/18 14:50 Ordered 1 mg IV Q2HR PRN Remove Patch Med 12/13/18 20:00 Active 1 ea TRDERM Q24H Triamcinolone Acetonide [Kenalog-40] Med 12/14/18 11:00 Active 80 mg IM ASDIRECTED Medication Orders Acetaminophen (Tylenol Arthritis Pain) 650 mg PO Q8HR [facility] Last Admin: 12/14/18 14:36 Dose: 650 mg Admin: 12/14/18 06:10 Dose: 650 mg Admin: 12/14/18 02:53 Dose: Not Given Admin: 12/13/18 14:19 Dose: 650 mg Albuterol (Ventolin Hfa) 8 gm INH Q4H PRN PRN Reason: Congestion Albuterol/Ipratropium (Duoneb 3.0-0.5 Mg/3 Ml) 3 ml NEB Q4H PRN PRN Reason: wheezing Aspirin (Halfprin) 81 mg PO QPM [facility] Last Admin: 12/13/18 20:02 Dose: 81 mg Admin: 12/12/18 19:44 Dose: 81 mg Atorvastatin Calcium (Lipitor) 40 mg PO BEDTIME [facility] Last Admin: 12/13/18 20:01 Dose: 40 mg Admin: 12/12/18 19:44 Dose: 40 mg Bupivacaine HCl (Sensorcaine-Mpf 0.5%) 2 ml INJECT ASDIRECTED [facility] Stop: 12/14/18 23:59 Clopidogrel Bisulfate (Plavix) 75 mg PO DAILY [facility] Last Admin: 12/14/18 07:29 Dose: 75 mg Admin: 12/13/18 08:17 Dose: 75 mg Cyclobenzaprine HCl (Flexeril) 10 mg PO BEDTIME [facility] Last Admin: 12/13/18 20:01 Dose: 10 mg Admin: 12/12/18 19:44 Dose: 10 mg Furosemide (Lasix) 20 mg PO DAILY [facility] Last Admin: 12/14/18 07:30 Dose: 20 mg Admin: 12/13/18 08:16 Dose: 20 mg Lactobacillus Acidophilus (Acidolphilus Extra Strength) 1 tab PO DAILY@1200 [facility] Last Admin: 12/14/18 12:06 Dose: Not Given Admin: 12/13/18 12:30 Dose: Not Given Levothyroxine Sodium (Synthroid) 88 mcg PO ACBREAKFAST [facility] Last Admin: 12/14/18 06:28 Dose: 88 mcg Admin: 12/13/18 07:21 Dose: 88 mcg Lidocaine (Lidoderm 5%) 700 mg TOP DAILY [facility] Last Admin: 06/27/19 07:31 Dose: 700 mg Admin: 12/13/18 07:22 Dose: 700 mg Lidocaine HCl (Xylocaine-Mpf 1%) 2 ml INJECT ASDIRECTED [facility] Stop: 12/14/18 23:59 Metoprolol Tartrate (Lopressor) 25 mg PO DAILY [facility] Last Admin: 12/14/18 07:30 Dose: 25 mg Admin: 12/13/18 08:16 Dose: 25 mg Admin: 12/12/18 17:00 Dose: 25 mg Miscellaneous Information (Remove Patch) 1 ea TRDERM Q24H [facility] Last Admin: 12/13/18 20:03 Dose: 1 ea Morphine Sulfate (Morphine) 1 mg IV Q2HR PRN PRN Reason: Pain Non-Formulary Medication (Multivitamin [Men's Multi-Vitamin]) 1 each PO 1200 [facility] Last Admin: 12/14/18 12:07 Dose: Not Given Admin: 12/13/18 12:18 Dose: 1 each Non-Formulary Medication (Ubidecarenone [Co Q-10]) 200 mg PO 1200 [facility] Last Admin: 12/14/18 12:07 Dose: 200 mg Admin: 12/13/18 12:21 Dose: 200 mg Non-Formulary Medication (Omeprazole [Omeprazole]) 40 mg PO ACBREAKFAST [facility] Last Admin: 12/14/18 06:10 Dose: 40 mg Admin: 12/13/18 07:20 Dose: 40 mg Polyethylene Glycol (Miralax) 17 gm PO BID [facility] Last Admin: 12/14/18 07:31 Dose: 17 gm Admin: 12/13/18 20:03 Dose: 17 gm Admin: 12/13/18 10:22 Dose: 17 gm Tamsulosin HCl (Flomax) 0.4 mg PO DAILY@1200 [facility] Last Admin: 12/14/18 12:07 Dose: Not Given Admin: 12/13/18 12:29 Dose: 0.4 mg Triamcinolone Acetonide (Kenalog-40) 80 mg IM ASDIRECTED [facility] Stop: 12/14/18 23:59 Assessment/Plan Comment:: Patient was given trigger point injections for paraspinal pain. He does have spinal pain and we will obtain a CT for this area. PT/OT referral and further workup pending. Patient given 2 more trigger point injections at the level of T12 for relief. Some relief but patient still unable to transfer or move self without severe pain. Patient admitted for pain management.
[2018-12-14] MEDS ORDERED: Sodium Chloride 0.9% 10 ML Syringe FLUSH PRN (16:50)
[2018-12-14] MEDS: Cyclobenzaprine 10 MG Tab PO SCH (21:00)
[2018-12-14] MEDS: atorvaSTATin 40 MG Tab PO SCH (21:00)
[2018-12-14] MEDS: Aspirin 81 MG Tab.EC PO SCH (21:00)
[2018-12-14] MEDS: Remove Patch*LIDODERM TRDERM SCH (21:05)
[2018-12-15] MEDS ORDERED: Levothyroxine 88 MCG Tab ONE (08:45)
[2018-12-15] MEDS: Omeprazole 20 MG Cap.CR PO SCH (08:54)
[2018-12-15] MEDS: Levothyroxine 50 MCG Tab PO SCH (08:54)
[2018-12-15] MEDS: Metoprolol Tartrate 25 MG Tab PO SCH (08:55)
[2018-12-15] MEDS: Clopidogrel 75 MG Tab PO SCH (08:55)
[2018-12-15] MEDS: Furosemide 20 MG Tab PO SCH (08:55)
[2018-12-15] MEDS: Lidocaine 5% 700 MG Patch TOP SCH (08:56)
[2018-12-15] MEDS: Polyethylene Glycol 3350 Powder 17 GM Packet PO SCH ×2 (08:57→20:38)
[2018-12-15] MEDS: Acetaminophen 650 MG Tab.ER PO SCH ×3 (08:57→23:39)
--- NOTE | 2018-12-15 11:49 | PCM.PN ---
- General Info Date of Service: 12/15/18 Subjective Update: Patient continues to have severe mid to lower back pain with radiation to ribs and sides with movement. He is unable to dress self, unable to move without severe pain and requires assistance with repositioning and even sitting up. He is stable with no movement. He has pain with a slight cough and deep breaths at times cause pain. Functional Status: Reports: Pain Controlled, Tolerating Diet - Review of Systems General: Reports: Weakness HEENT: Reports: No Symptoms Pulmonary: Reports: No Symptoms Cardiovascular: Reports: No Symptoms Gastrointestinal: Reports: No Symptoms Musculoskeletal: Reports: Back Pain Neurological: Reports: No Symptoms Psychiatric: Reports: No Symptoms - Patient Data Vitals - Most Recent: Last Vital Signs Temp 36.9 C 12/15/18 06:26 Pulse 87 12/15/18 08:55 Resp 18 12/15/18 06:26 BP 190/109 H 12/15/18 08:55 Pulse Ox 99 12/15/18 06:26 Weight - Most Recent: 69.853 kg I&O - Last 24 Hours: Intake & Output 12/14/18 12/15/18 12/15/18 22:59 06:59 14:59 Intake Total 360 Output Total 1350 Balance -990 Lab Results Last 24 Hours: Laboratory Results - last 24 hr 12/14/18 12/14/18 Range/Units 07:59 10:54 POC Glucose 181 H (74-110) mg/dL TSH, Ultra Sensitive 2.912 D (0.358-3.740) uIU/mL Med Orders - Current: Current Medications Acetaminophen (Tylenol Arthritis Pain) 650 mg PO Q8HR [facility] Last Admin: 12/15/18 08:57 Dose: Not Given Albuterol (Ventolin Hfa) 8 gm INH Q4H PRN PRN Reason: Congestion Albuterol/Ipratropium (Duoneb 3.0-0.5 Mg/3 Ml) 3 ml NEB Q4H PRN PRN Reason: wheezing Aspirin (Halfprin) 81 mg PO QPM [facility] Last Admin: 12/14/18 21:00 Dose: 81 mg Atorvastatin Calcium (Lipitor) 40 mg PO BEDTIME [facility] Last Admin: 12/14/18 21:00 Dose: 40 mg Clopidogrel Bisulfate (Plavix) 75 mg PO DAILY [facility] Last Admin: 12/15/18 08:55 Dose: 75 mg Cyclobenzaprine HCl (Flexeril) 10 mg PO BEDTIME [facility] Last Admin: 12/14/18 21:00 Dose: 10 mg Furosemide (Lasix) 20 mg PO DAILY [facility] Last Admin: 12/15/18 08:55 Dose: 20 mg Levothyroxine Sodium (Synthroid) 88 mcg PO ACBREAKFAST [facility] Last Admin: 12/15/18 08:54 Dose: 88 mcg Lidocaine (Lidoderm 5%) 700 mg TOP DAILY [facility] Last Admin: 12/15/18 08:56 Dose: 700 mg Metoprolol Tartrate (Lopressor) 25 mg PO DAILY [facility] Last Admin: 12/15/18 08:55 Dose: 25 mg Miscellaneous Information (Remove Patch) 1 ea TRDERM Q24H [facility] Last Admin: 12/14/18 21:05 Dose: 1 ea Morphine Sulfate (Morphine) 1 mg IV Q2HR PRN PRN Reason: Pain Last Admin: 12/14/18 23:58 Dose: 1 mg Non-Formulary Medication (Multivitamin [Men's Multi-Vitamin]) 1 each PO 1200 [facility] Last Admin: 12/14/18 12:07 Dose: Not Given Non-Formulary Medication (Ubidecarenone [Co Q-10]) 200 mg PO 1200 [facility] Last Admin: 12/14/18 12:07 Dose: 200 mg Omeprazole (Omeprazole) 40 mg PO ACBREAKFAST [facility] Last Admin: 12/15/18 08:54 Dose: 40 mg Polyethylene Glycol (Miralax) 17 gm PO BID [facility] Last Admin: 12/15/18 08:57 Dose: 17 gm Sodium Chloride (Saline Flush) 10 ml FLUSH ASDIRECTED PRN PRN Reason: Keep Vein Open Tamsulosin HCl (Flomax) 0.4 mg PO DAILY@1200 [facility] Last Admin: 12/14/18 12:07 Dose: Not Given Discontinued Medications Bupivacaine HCl (Sensorcaine-Mpf 0.5%) 4 ml INJECT ONETIME ONE Stop: 12/13/18 08:38 Last Admin: 12/13/18 08:37 Dose: 4 ml Bupivacaine HCl (Sensorcaine-Mpf 0.5%) 2 ml INJECT ASDIRECTED [facility] Stop: 12/14/18 23:59 Lactobacillus Acidophilus (Acidolphilus Extra Strength) 1 tab PO DAILY@1200 [facility] Last Admin: 12/14/18 12:06 Dose: Not Given Levothyroxine Sodium (Synthroid) Confirm Administered Dose 88 mcg .ROUTE .STK- MED ONE Stop: 12/13/18 07:07 Last Admin: 12/13/18 07:10 Dose: Not Given Levothyroxine Sodium (Synthroid) Confirm Administered Dose 88 mcg .ROUTE .STK- MED ONE Stop: 12/15/18 08:46 Last Admin: 12/15/18 09:00 Dose: Not Given Lidocaine (Lidoderm 5%) 700 mg TOP ONETIME ONE Stop: 12/12/18 14:28 Last Admin: 12/12/18 14:40 Dose: 700 mg Lidocaine HCl (Xylocaine-Mpf 1%) 4 ml INJECT ONETIME ONE Stop: 12/13/18 08:37 Last Admin: 12/13/18 08:37 Dose: 4 ml Lidocaine HCl (Xylocaine-Mpf 1%) 2 ml INJECT ASDIRECTED [facility] Stop: 12/14/18 23:59 Non-Formulary Medication (Omeprazole [Omeprazole]) 40 mg PO ACBREAKFAST [facility] Last Admin: 12/14/18 06:10 Dose: 40 mg Polyethylene Glycol (Miralax) 17 gm PO BID [facility] Triamcinolone Acetonide (Kenalog-40) 160 mg INJECT ONETIME ONE Stop: 12/13/18 08:36 Last Admin: 12/13/18 08:37 Dose: 160 mg Triamcinolone Acetonide (Kenalog-40) 160 mg INJECT ONETIME ONE Stop: 12/14/18 10:31 Last Admin: 12/14/18 14:26 Dose: 160 mg Triamcinolone Acetonide (Kenalog-40) 80 mg IM ASDIRECTED [facility] Stop: 12/14/18 23:59 - Exam General: Alert, Oriented, Cooperative HEENT: Pupils Equal, Pupils Reactive, EOMI Neck: Supple Lungs: Clear to Auscultation, Normal Respiratory Effort Cardiovascular: Regular Rate, Regular Rhythm GI/Abdominal Exam: Normal Bowel Sounds, Soft, Non-Tender Back Exam: Muscle Spasm, Paraspinal Tenderness, Vertebral Tenderness Extremities: Normal Inspection - Problem List & Annotations (1) Thoracic spine pain SNOMED Code(s): 327712546 Code(s): M54.6 - PAIN IN THORACIC SPINE Status: Acute Priority: High Current Visit: Yes (2) Paraspinal muscle spasm SNOMED Code(s): 06467886 Code(s): M62.830 - MUSCLE SPASM OF BACK Status: Acute Priority: High Current Visit: Yes (3) T12 compression fracture SNOMED Code(s): 089365350 Code(s): S22.080A - WEDGE COMPRESSION FRACTURE OF T11-T12 VERTEBRA, INIT Status: Acute Priority: High Current Visit: Yes Qualifiers: Encounter type: initial encounter Qualified Code(s): S22.080A - Wedge compression fracture of T11-T12 vertebra, initial encounter for closed fracture - Problem List Review Problem List Initiated/Reviewed/Updated: Yes - My Orders Last 24 Hours: My Active Orders 12/14/18 14:50 Patient Status [ADT] Routine Morphine Sulfate [Morphine] 1 mg IV Q2HR PRN 12/14/18 16:50 Sodium Chloride 0.9% [Saline Flush] 10 ml FLUSH ASDIRECTED PRN Saline Lock Insert [OM.PC] Routine 12/15/18 07:00 Omeprazole 40 mg PO ACBREAKFAST - Plan Plan:: Patient was given trigger point injections for paraspinal pain. He does have spinal pain and we will obtain a CT for this area. PT/OT referral and further workup pending. Patient given 2 more trigger point injections at the level of T12 for relief. Some relief but patient still unable to transfer or move self without severe pain. Patient admitted for pain management. 12/15/18 Patient has improved symptoms with morphine administration and was able to sleep last night. He still requires full assistance for movement due to the pain. We will start nasal calcitonin and continue IV pain management as oral meds did not work well. The lidoderm patch, supportive care, icing/heating pads did not improve his symptoms much. Trigger point injections did improve some symptoms of the muscle ache and spasm pain but not the acute sharp shooting pain with movement of the T12 area and distribution. He basically cannot move without assistance due to the severe lower thoracic pain with bending or twisting movements. We will follow up pain management and monitor throughout today and tonight.
[2018-12-15] MEDS: Tamsulosin 0.4 MG Cap.ER PO SCH (12:27)
[2018-12-15] MEDS: Non-Formulary Medication 1 Each (Ubidecarenone [Co Q-10] 200 MG) PO SCH (12:27)
[2018-12-15] MEDS: Non-Formulary Medication 1 Each (Multivitamin [Men's Multi-Vitamin] 1 EACH) PO SCH (12:27)
[2018-12-15] MEDS: Remove Patch*LIDODERM TRDERM SCH (20:30)
[2018-12-15] MEDS: Cyclobenzaprine 10 MG Tab PO SCH (20:35)
[2018-12-15] MEDS: Aspirin 81 MG Tab.EC PO SCH (20:35)
[2018-12-15] MEDS: atorvaSTATin 40 MG Tab PO SCH (20:35)
[2018-12-16] MEDS ORDERED: Levothyroxine 88 MCG Tab ONE (06:10)
[2018-12-16] MEDS: Omeprazole 20 MG Cap.CR PO SCH (06:23)
[2018-12-16] MEDS: Acetaminophen 650 MG Tab.ER PO SCH ×3 (06:24→22:35)
[2018-12-16] MEDS: Levothyroxine 88 MCG Tab PO SCH (06:24)
[2018-12-16] MEDS: Polyethylene Glycol 3350 Powder 17 GM Packet PO SCH ×2 (08:23→20:28)
[2018-12-16] MEDS: Metoprolol Tartrate 25 MG Tab PO SCH (08:23)
[2018-12-16] MEDS: Furosemide 20 MG Tab PO SCH (08:24)
[2018-12-16] MEDS: Sodium Chloride 0.9% 10 ML Syringe FLUSH SCH ×2 (08:25→20:29)
[2018-12-16] MEDS: Lidocaine 5% 700 MG Patch TOP SCH (08:45)
[2018-12-16] MEDS: Clopidogrel 75 MG Tab PO SCH (08:49)
[2018-12-16] MEDS: Non-Formulary Medication 1 Each (Ubidecarenone [Co Q-10] 200 MG) PO SCH (12:39)
[2018-12-16] MEDS: Tamsulosin 0.4 MG Cap.ER PO SCH (12:39)
[2018-12-16] MEDS: Non-Formulary Medication 1 Each (Multivitamin [Men's Multi-Vitamin] 1 EACH) PO SCH (12:41)
[2018-12-16] MEDS: Calcitonin (Salmon) Nasal Spray 3.7 ML Bottle NAS SCH (13:02)
--- NOTE | 2018-12-16 13:15 | PCM.PN ---
- General Info Date of Service: 12/16/18 Subjective Update: Patient has some improvement with movement but continues to have severe pain. He states he is able to lean forward slightly more than yesterday. He felt his pain medications are helping him. He denies nausea or abdominal complaints. Functional Status: Reports: Pain Controlled, Tolerating Diet - Review of Systems General: Reports: Weakness HEENT: Reports: No Symptoms Pulmonary: Reports: Wheezing Cardiovascular: Reports: No Symptoms Gastrointestinal: Reports: No Symptoms Genitourinary: Reports: No Symptoms Musculoskeletal: Reports: Back Pain Skin: Reports: No Symptoms Neurological: Reports: Difficulty Walking, Weakness - Patient Data Vitals - Most Recent: Last Vital Signs Temp 36.2 C 12/16/18 11:20 Pulse 78 12/16/18 11:20 Resp 18 12/16/18 11:20 BP 150/89 H 12/16/18 11:20 Pulse Ox 97 12/16/18 11:20 Weight - Most Recent: 69.853 kg I&O - Last 24 Hours: Intake & Output 12/15/18 12/16/18 12/16/18 22:59 06:59 14:59 Intake Total 1080 300 Output Total 850 500 Balance 230 -200 Med Orders - Current: Current Medications Acetaminophen (Tylenol Arthritis Pain) 650 mg PO Q8HR [facility] Last Admin: 12/16/18 06:24 Dose: 650 mg Albuterol (Ventolin Hfa) 8 gm INH Q4H PRN PRN Reason: Congestion Albuterol/Ipratropium (Duoneb 3.0-0.5 Mg/3 Ml) 3 ml NEB Q4H PRN PRN Reason: wheezing Aspirin (Halfprin) 81 mg PO QPM [facility] Last Admin: 12/15/18 20:35 Dose: 81 mg Atorvastatin Calcium (Lipitor) 40 mg PO BEDTIME [facility] Last Admin: 12/15/18 20:35 Dose: 40 mg Calcitonin [place] (Miacalcin Nasal [place]) 0 ml KARO DAILY [facility] Clopidogrel Bisulfate (Plavix) 75 mg PO DAILY [facility] Last Admin: 12/16/18 08:49 Dose: 75 mg Cyclobenzaprine HCl (Flexeril) 10 mg PO BEDTIME [facility] Last Admin: 12/15/18 20:35 Dose: 10 mg Furosemide (Lasix) 20 mg PO DAILY [facility] Last Admin: 12/16/18 08:24 Dose: 20 mg Levothyroxine Sodium (Synthroid) 88 mcg PO ACBREAKFAST [facility] Last Admin: 12/16/18 06:24 Dose: 88 mcg Lidocaine (Lidoderm 5%) 700 mg TOP DAILY [facility] Last Admin: 12/16/18 08:45 Dose: 700 mg Metoprolol Tartrate (Lopressor) 25 mg PO DAILY [facility] Last Admin: 12/16/18 08:23 Dose: 25 mg Miscellaneous Information (Remove Patch) 1 ea TRDERM Q24H [facility] Last Admin: 12/15/18 20:30 Dose: 1 ea Morphine Sulfate (Morphine) 1 mg IV Q2HR PRN PRN Reason: Pain Last Admin: 12/16/18 12:40 Dose: 1 mg Non-Formulary Medication (Multivitamin [Men's Multi-Vitamin]) 1 each PO 1200 [facility] Last Admin: 12/16/18 12:41 Dose: 1 each Non-Formulary Medication (Ubidecarenone [Co Q-10]) 200 mg PO 1200 [facility] Last Admin: 12/16/18 12:39 Dose: 200 mg Omeprazole (Omeprazole) 40 mg PO ACBREAKFAST [facility] Last Admin: 12/16/18 06:23 Dose: 40 mg Polyethylene Glycol (Miralax) 17 gm PO BID [facility] Last Admin: 12/16/18 08:23 Dose: 17 gm Sodium Chloride (Saline Flush) 10 ml FLUSH ASDIRECTED PRN PRN Reason: Keep Vein Open Sodium Chloride (Saline Flush) 10 ml FLUSH BID [facility] Last Admin: 12/16/18 08:25 Dose: 10 ml Tamsulosin HCl (Flomax) 0.4 mg PO DAILY@1200 [facility] Last Admin: 12/16/18 12:39 Dose: 0.4 mg Discontinued Medications Bupivacaine HCl (Sensorcaine-Mpf 0.5%) 4 ml INJECT ONETIME ONE Stop: 12/13/18 08:38 Last Admin: 12/13/18 08:37 Dose: 4 ml Bupivacaine HCl (Sensorcaine-Mpf 0.5%) 2 ml INJECT ASDIRECTED [facility] Stop: 12/14/18 23:59 Lactobacillus Acidophilus (Acidolphilus Extra Strength) 1 tab PO DAILY@1200 [facility] Last Admin: 12/14/18 12:06 Dose: Not Given Levothyroxine Sodium (Synthroid) 88 mcg PO ACBREAKFAST [facility] Last Admin: 12/15/18 08:54 Dose: 88 mcg Levothyroxine Sodium (Synthroid) Confirm Administered Dose 88 mcg .ROUTE .STK- MED ONE Stop: 12/13/18 07:07 Last Admin: 12/13/18 07:10 Dose: Not Given Levothyroxine Sodium (Synthroid) Confirm Administered Dose 88 mcg .ROUTE .STK- MED ONE Stop: 12/15/18 08:46 Last Admin: 12/15/18 09:00 Dose: Not Given Levothyroxine Sodium (Synthroid) Confirm Administered Dose 88 mcg .ROUTE .STK- MED ONE Stop: 12/16/18 06:11 Last Admin: 12/16/18 06:18 Dose: Not Given Lidocaine (Lidoderm 5%) 700 mg TOP ONETIME ONE Stop: 12/12/18 14:28 Last Admin: 12/12/18 14:40 Dose: 700 mg Lidocaine HCl (Xylocaine-Mpf 1%) 4 ml INJECT ONETIME ONE Stop: 12/13/18 08:37 Last Admin: 12/13/18 08:37 Dose: 4 ml Lidocaine HCl (Xylocaine-Mpf 1%) 2 ml INJECT ASDIRECTED [facility] Stop: 12/14/18 23:59 Non-Formulary Medication (Omeprazole [Omeprazole]) 40 mg PO ACBREAKFAST [facility] Last Admin: 12/14/18 06:10 Dose: 40 mg Polyethylene Glycol (Miralax) 17 gm PO BID [facility] Triamcinolone Acetonide (Kenalog-40) 160 mg INJECT ONETIME ONE Stop: 12/13/18 08:36 Last Admin: 12/13/18 08:37 Dose: 160 mg Triamcinolone Acetonide (Kenalog-40) 160 mg INJECT ONETIME ONE Stop: 12/14/18 10:31 Last Admin: 12/14/18 14:26 Dose: 160 mg Triamcinolone Acetonide (Kenalog-40) 80 mg IM ASDIRECTED [facility] Stop: 12/14/18 23:59 - Exam General: Alert, Oriented, Cooperative HEENT: Pupils Equal, Pupils Reactive, EOMI Neck: Supple Lungs: Normal Respiratory Effort, Rhonchi, Wheezing Cardiovascular: Regular Rate, Regular Rhythm GI/Abdominal Exam: Normal Bowel Sounds Back Exam: Muscle Spasm, Paraspinal Tenderness, Vertebral Tenderness Extremities: Normal Inspection - Problem List & Annotations (1) Thoracic spine pain SNOMED Code(s): 539381311 Code(s): M54.6 - PAIN IN THORACIC SPINE Status: Acute Priority: High Current Visit: Yes (2) Paraspinal muscle spasm SNOMED Code(s): 09060893 Code(s): M62.830 - MUSCLE SPASM OF BACK Status: Acute Priority: High Current Visit: Yes (3) T12 compression fracture SNOMED Code(s): 403564027 Code(s): S22.080A - WEDGE COMPRESSION FRACTURE OF T11-T12 VERTEBRA, INIT Status: Acute Priority: High Current Visit: Yes Qualifiers: Encounter type: initial encounter Qualified Code(s): S22.080A - Wedge compression fracture of T11-T12 vertebra, initial encounter for closed fracture - Problem List Review Problem List Initiated/Reviewed/Updated: Yes - My Orders Last 24 Hours: My Active Orders 12/16/18 10:45 Calcitonin ([place]) [Miacalcin Nasal [place]] See Dose Instructions [facility] DAILY - Plan Plan:: Patient was given trigger point injections for paraspinal pain. He does have spinal pain and we will obtain a CT for this area. PT/OT referral and further workup pending. Patient given 2 more trigger point injections at the level of T12 for relief. Some relief but patient still unable to transfer or move self without severe pain. Patient admitted for pain management. 12/15/18 Patient has improved symptoms with morphine administration and was able to sleep last night. He still requires full assistance for movement due to the pain. We will start nasal calcitonin and continue IV pain management as oral meds did not work well. The lidoderm patch, supportive care, icing/heating pads did not improve his symptoms much. Trigger point injections did improve some symptoms of the muscle ache and spasm pain but not the acute sharp shooting pain with movement of the T12 area and distribution. He basically cannot move without assistance due to the severe lower thoracic pain with bending or twisting movements. We will follow up pain management and monitor throughout today and tonight. 12/16/18 Patient showing improvement but still requires full assistance for transfer or movement. He is a high risk for falls on his feet even with his assisting device (Cane with feet). His pain has improved but not fully controlled. We will have to adjust as needed. I would like PT/OT evaluation - that will start on Tuesday. Continue current pain management and monitoring.
[2018-12-16] MEDS: Albuterol/Ipratropium 3.0-0.5 MG/3 ML Neb Soln NEB PRN (15:11)
[2018-12-16] MEDS: Cyclobenzaprine 10 MG Tab PO SCH (20:28)
[2018-12-16] MEDS: Aspirin 81 MG Tab.EC PO SCH (20:28)
[2018-12-16] MEDS: atorvaSTATin 40 MG Tab PO SCH (20:29)
[2018-12-16] MEDS: Remove Patch*LIDODERM TRDERM SCH (20:30)
[2018-12-16] MEDS ORDERED: Morphine 2 MG/ML Syringe ONE (21:56)
[2018-12-17] MEDS: Furosemide 20 MG Tab PO SCH (07:39)
[2018-12-17] MEDS: Omeprazole 20 MG Cap.CR PO SCH (07:39)
[2018-12-17] MEDS: Levothyroxine 88 MCG Tab PO SCH (07:39)
[2018-12-17] MEDS: Metoprolol Tartrate 25 MG Tab PO SCH (07:39)
[2018-12-17] MEDS: Clopidogrel 75 MG Tab PO SCH (07:39)
[2018-12-17] MEDS: Lidocaine 5% 700 MG Patch TOP SCH (07:40)
[2018-12-17] MEDS: Polyethylene Glycol 3350 Powder 17 GM Packet PO SCH ×3 (07:40→19:44)
[2018-12-17] MEDS: Acetaminophen 650 MG Tab.ER PO SCH ×2 (07:40→15:33)
[2018-12-17] MEDS ORDERED: Morphine 2 MG/ML Syringe ONE ×5 (07:53→20:09)
[2018-12-17] MEDS: Sodium Chloride 0.9% 10 ML Syringe FLUSH SCH ×2 (08:50→19:43)
[2018-12-17] MEDS: Calcitonin (Salmon) Nasal Spray 3.7 ML Bottle NAS SCH (08:51)
[2018-12-17] MEDS: Tamsulosin 0.4 MG Cap.ER PO SCH (11:53)
[2018-12-17] MEDS: Non-Formulary Medication 1 Each (Multivitamin [Men's Multi-Vitamin] 1 EACH) PO SCH (12:00)
[2018-12-17] MEDS: Non-Formulary Medication 1 Each (Ubidecarenone [Co Q-10] 200 MG) PO SCH (12:00)
--- NOTE | 2018-12-17 13:10 | PCM.PN ---
- General Info Date of Service: 12/17/18 Subjective Update: Patient doing well. He had improved sleep last night with good pain control. He did have increased pain this am with movement. Patient denies any other concerns and feels that his back has improved. He still requires help to get up , transfer but does feel his strength is improving and pain is better managed. Functional Status: Reports: Tolerating Diet - Review of Systems General: Reports: Weakness HEENT: Reports: No Symptoms Pulmonary: Reports: No Symptoms, Other (improved breathing, decreased wheezing) Cardiovascular: Reports: No Symptoms Gastrointestinal: Reports: No Symptoms Genitourinary: Reports: No Symptoms Musculoskeletal: Reports: Back Pain Skin: Reports: No Symptoms Neurological: Reports: Difficulty Walking, Weakness - Patient Data Vitals - Most Recent: Last Vital Signs Temp 36.2 C 12/17/18 01:10 Pulse 85 12/17/18 07:39 Resp 20 12/17/18 04:00 BP 175/95 H 12/17/18 07:39 Pulse Ox 95 12/17/18 04:00 Weight - Most Recent: 69.853 kg I&O - Last 24 Hours: Intake & Output 12/16/18 12/17/18 12/17/18 22:59 06:59 14:59 Intake Total 600 175 Output Total 650 675 Balance -50 -500 Med Orders - Current: Current Medications Acetaminophen (Tylenol Arthritis Pain) 650 mg PO Q8HR [facility] Last Admin: 12/17/18 07:40 Dose: 650 mg Albuterol (Ventolin Hfa) 8 gm INH Q4H PRN PRN Reason: Congestion Last Admin: 12/16/18 20:35 Dose: 2 puff Albuterol/Ipratropium (Duoneb 3.0-0.5 Mg/3 Ml) 3 ml NEB Q4H PRN PRN Reason: wheezing Last Admin: 12/16/18 15:11 Dose: 3 ml Aspirin (Halfprin) 81 mg PO QPM [facility] Last Admin: 12/16/18 20:28 Dose: 81 mg Atorvastatin Calcium (Lipitor) 40 mg PO BEDTIME [facility] Last Admin: 12/16/18 20:29 Dose: 40 mg Calcitonin [place] (Miacalcin Nasal [place]) 0 ml KARO DAILY [facility] Last Admin: 12/17/18 08:51 Dose: 1 spray Clopidogrel Bisulfate (Plavix) 75 mg PO DAILY [facility] Last Admin: 12/17/18 07:39 Dose: 75 mg Cyclobenzaprine HCl (Flexeril) 10 mg PO BEDTIME [facility] Last Admin: 12/16/18 20:28 Dose: 10 mg Furosemide (Lasix) 20 mg PO DAILY [facility] Last Admin: 12/17/18 07:39 Dose: 20 mg Levothyroxine Sodium (Synthroid) 88 mcg PO ACBREAKFAST [facility] Last Admin: 12/17/18 07:39 Dose: 88 mcg Lidocaine (Lidoderm 5%) 700 mg TOP DAILY [facility] Last Admin: 12/17/18 07:40 Dose: 700 mg Metoprolol Tartrate (Lopressor) 25 mg PO DAILY [facility] Last Admin: 12/17/18 07:39 Dose: 25 mg Miscellaneous Information (Remove Patch) 1 ea TRDERM Q24H [facility] Last Admin: 12/16/18 20:30 Dose: 1 ea Morphine Sulfate (Morphine) 1 mg IV Q2HR PRN PRN Reason: Pain Last Admin: 12/17/18 11:54 Dose: 1 mg Non-Formulary Medication (Multivitamin [Men's Multi-Vitamin]) 1 each PO 1200 [facility] Last Admin: 12/16/18 12:41 Dose: 1 each Non-Formulary Medication (Ubidecarenone [Co Q-10]) 200 mg PO 1200 [facility] Last Admin: 12/16/18 12:39 Dose: 200 mg Omeprazole (Omeprazole) 40 mg PO ACBREAKFAST [facility] Last Admin: 12/17/18 07:39 Dose: 40 mg Polyethylene Glycol (Miralax) 17 gm PO BID [facility] Last Admin: 12/17/18 11:53 Dose: Not Given Sodium Chloride (Saline Flush) 10 ml FLUSH ASDIRECTED PRN PRN Reason: Keep Vein Open Sodium Chloride (Saline Flush) 10 ml FLUSH BID [facility] Last Admin: 12/16/18 20:29 Dose: 10 ml Tamsulosin HCl (Flomax) 0.4 mg PO DAILY@1200 [facility] Last Admin: 12/17/18 11:53 Dose: Not Given Discontinued Medications Bupivacaine HCl (Sensorcaine-Mpf 0.5%) 4 ml INJECT ONETIME ONE Stop: 12/13/18 08:38 Last Admin: 12/13/18 08:37 Dose: 4 ml Bupivacaine HCl (Sensorcaine-Mpf 0.5%) 2 ml INJECT ASDIRECTED [facility] Stop: 12/14/18 23:59 Lactobacillus Acidophilus (Acidolphilus Extra Strength) 1 tab PO DAILY@1200 [facility] Last Admin: 12/14/18 12:06 Dose: Not Given Levothyroxine Sodium (Synthroid) 88 mcg PO ACBREAKFAST [facility] Last Admin: 12/15/18 08:54 Dose: 88 mcg Levothyroxine Sodium (Synthroid) Confirm Administered Dose 88 mcg .ROUTE .STK- MED ONE Stop: 12/13/18 07:07 Last Admin: 12/13/18 07:10 Dose: Not Given Levothyroxine Sodium (Synthroid) Confirm Administered Dose 88 mcg .ROUTE .STK- MED ONE Stop: 12/15/18 08:46 Last Admin: 12/15/18 09:00 Dose: Not Given Levothyroxine Sodium (Synthroid) Confirm Administered Dose 88 mcg .ROUTE .STK- MED ONE Stop: 12/16/18 06:11 Last Admin: 12/16/18 06:18 Dose: Not Given Lidocaine (Lidoderm 5%) 700 mg TOP ONETIME ONE Stop: 12/12/18 14:28 Last Admin: 12/12/18 14:40 Dose: 700 mg Lidocaine HCl (Xylocaine-Mpf 1%) 4 ml INJECT ONETIME ONE Stop: 12/13/18 08:37 Last Admin: 12/13/18 08:37 Dose: 4 ml Lidocaine HCl (Xylocaine-Mpf 1%) 2 ml INJECT ASDIRECTED [facility] Stop: 12/14/18 23:59 Morphine Sulfate (Morphine) Confirm Administered Dose 2 mg .ROUTE .STK-MED ONE Stop: 12/16/18 21:57 Last Admin: 12/16/18 22:28 Dose: Not Given Morphine Sulfate (Morphine) Confirm Administered Dose 2 mg .ROUTE .STK-MED ONE Stop: 12/17/18 07:54 Last Admin: 12/17/18 11:54 Dose: Not Given Morphine Sulfate (Morphine) Confirm Administered Dose 2 mg .ROUTE .STK-MED ONE Stop: 12/17/18 10:24 Last Admin: 12/17/18 11:54 Dose: Not Given Morphine Sulfate (Morphine) Confirm Administered Dose 2 mg .ROUTE .STK-MED ONE Stop: 12/17/18 11:36 Last Admin: 12/17/18 11:54 Dose: Not Given Non-Formulary Medication (Omeprazole [Omeprazole]) 40 mg PO ACBREAKFAST [facility] Last Admin: 12/14/18 06:10 Dose: 40 mg Polyethylene Glycol (Miralax) 17 gm PO BID [facility] Triamcinolone Acetonide (Kenalog-40) 160 mg INJECT ONETIME ONE Stop: 12/13/18 08:36 Last Admin: 12/13/18 08:37 Dose: 160 mg Triamcinolone Acetonide (Kenalog-40) 160 mg INJECT ONETIME ONE Stop: 12/14/18 10:31 Last Admin: 12/14/18 14:26 Dose: 160 mg Triamcinolone Acetonide (Kenalog-40) 80 mg IM ASDIRECTED [facility] Stop: 12/14/18 23:59 - Exam General: Alert, Oriented, Cooperative HEENT: Pupils Equal, Pupils Reactive, EOMI Neck: Supple Lungs: Clear to Auscultation, Normal Respiratory Effort Cardiovascular: Regular Rate, Regular Rhythm GI/Abdominal Exam: Normal Bowel Sounds, Soft, Non-Tender Back Exam: Muscle Spasm, Paraspinal Tenderness, Vertebral Tenderness Extremities: Normal Inspection, Normal Range of Motion - Problem List & Annotations (1) Thoracic spine pain SNOMED Code(s): 661746863 Code(s): M54.6 - PAIN IN THORACIC SPINE Status: Acute Priority: High Current Visit: Yes (2) Paraspinal muscle spasm SNOMED Code(s): 04851682 Code(s): M62.830 - MUSCLE SPASM OF BACK Status: Acute Priority: High Current Visit: Yes (3) T12 compression fracture SNOMED Code(s): 107831790 Code(s): S22.080A - WEDGE COMPRESSION FRACTURE OF T11-T12 VERTEBRA, INIT Status: Acute Priority: High Current Visit: Yes Qualifiers: Encounter type: initial encounter Qualified Code(s): S22.080A - Wedge compression fracture of T11-T12 vertebra, initial encounter for closed fracture - Problem List Review Problem List Initiated/Reviewed/Updated: Yes - Plan Plan:: Patient was given trigger point injections for paraspinal pain. He does have spinal pain and we will obtain a CT for this area. PT/OT referral and further workup pending. Patient given 2 more trigger point injections at the level of T12 for relief. Some relief but patient still unable to transfer or move self without severe pain. Patient admitted for pain management. 12/15/18 Patient has improved symptoms with morphine administration and was able to sleep last night. He still requires full assistance for movement due to the pain. We will start nasal calcitonin and continue IV pain management as oral meds did not work well. The lidoderm patch, supportive care, icing/heating pads did not improve his symptoms much. Trigger point injections did improve some symptoms of the muscle ache and spasm pain but not the acute sharp shooting pain with movement of the T12 area and distribution. He basically cannot move without assistance due to the severe lower thoracic pain with bending or twisting movements. We will follow up pain management and monitor throughout today and tonight. 12/16/18 Patient showing improvement but still requires full assistance for transfer or movement. He is a high risk for falls on his feet even with his assisting device (Cane with feet). His pain has improved but not fully controlled. We will have to adjust as needed. I would like PT/OT evaluation - that will start on Tuesday. Continue current pain management and monitoring. 12/17/18 Patient will continue with current pain management. We will start fentanyl patch tomorrow am. F/u PT/OT evaluation in am.
[2018-12-17] MEDS: Aspirin 81 MG Tab.EC PO SCH (19:36)
[2018-12-17] MEDS: Cyclobenzaprine 10 MG Tab PO SCH (19:36)
[2018-12-17] MEDS: atorvaSTATin 40 MG Tab PO SCH (19:36)
[2018-12-17] MEDS: Remove Patch*LIDODERM TRDERM SCH (19:46)
[2018-12-18] MEDS: Acetaminophen 650 MG Tab.ER PO SCH ×4 (04:19→21:22)
[2018-12-18] MEDS: Omeprazole 20 MG Cap.CR PO SCH (05:59)
[2018-12-18] MEDS: Levothyroxine 88 MCG Tab PO SCH (05:59)
[2018-12-18] MEDS ORDERED: Morphine 2 MG/ML Syringe ONE ×2 (07:22→09:31)
[2018-12-18] MEDS: Sodium Chloride 0.9% 10 ML Syringe FLUSH SCH (07:30)
[2018-12-18] MEDS ORDERED: fentaNYL 12 MCG/HR Transdermal Patch TRDERM SCH (08:00)
[2018-12-18] MEDS: Lidocaine 5% 700 MG Patch TOP SCH (08:18)
[2018-12-18] MEDS: Furosemide 20 MG Tab PO SCH (08:18)
[2018-12-18] MEDS: Metoprolol Tartrate 25 MG Tab PO SCH (08:19)
[2018-12-18] MEDS: Calcitonin (Salmon) Nasal Spray 3.7 ML Bottle NAS SCH (08:19)
[2018-12-18] MEDS: Clopidogrel 75 MG Tab PO SCH (08:19)
[2018-12-18] MEDS: Polyethylene Glycol 3350 Powder 17 GM Packet PO SCH ×2 (08:19→20:45)
[2018-12-18] MEDS ORDERED: fentaNYL 12 MCG/HR Transdermal Patch ONE (08:22)
--- NOTE | 2018-12-18 10:35 | PCM.PN ---
- General Info Date of Service: 12/18/18 Subjective Update: Patient has improved pain control. He states he is able to move his back more without as much pain. He is able to transfer and go the the bathroom but very wobbly and unsteadily and does require assist still. He is a fall risk. Functional Status: Reports: Tolerating Diet, Ambulating (very wobbly and unsteady gaid, ) - Review of Systems General: Reports: Weakness HEENT: Reports: No Symptoms Pulmonary: Reports: Other (slight rales, wheezing improved) Cardiovascular: Reports: No Symptoms Gastrointestinal: Reports: No Symptoms Genitourinary: Reports: No Symptoms Musculoskeletal: Reports: No Symptoms Skin: Reports: No Symptoms Neurological: Reports: Difficulty Walking, Weakness Psychiatric: Reports: No Symptoms - Patient Data Vitals - Most Recent: Last Vital Signs Temp 36.6 C 12/18/18 08:00 Pulse 87 12/18/18 08:19 Resp 20 12/18/18 08:00 BP 160/99 H 12/18/18 08:19 Pulse Ox 98 12/18/18 08:00 Weight - Most Recent: 69.853 kg I&O - Last 24 Hours: Intake & Output 12/17/18 12/18/18 12/18/18 22:59 06:59 14:59 Intake Total 1310 360 Output Total 775 1200 Balance 535 -840 Med Orders - Current: Current Medications Acetaminophen (Tylenol Arthritis Pain) 650 mg PO Q8HR [facility] Last Admin: 12/18/18 05:59 Dose: 650 mg Albuterol (Ventolin Hfa) 8 gm INH Q4H PRN PRN Reason: Congestion Last Admin: 12/16/18 20:35 Dose: 2 puff Albuterol/Ipratropium (Duoneb 3.0-0.5 Mg/3 Ml) 3 ml NEB Q4H PRN PRN Reason: wheezing Last Admin: 12/16/18 15:11 Dose: 3 ml Aspirin (Halfprin) 81 mg PO QPM [facility] Last Admin: 12/17/18 19:36 Dose: 81 mg Atorvastatin Calcium (Lipitor) 40 mg PO BEDTIME [facility] Last Admin: 12/17/18 19:36 Dose: 40 mg Calcitonin [place] (Miacalcin Nasal [place]) 0 ml KARO DAILY [facility] Last Admin: 12/18/18 08:19 Dose: 1 spray Clopidogrel Bisulfate (Plavix) 75 mg PO DAILY [facility] Last Admin: 12/18/18 08:19 Dose: 75 mg Cyclobenzaprine HCl (Flexeril) 10 mg PO BEDTIME [facility] Last Admin: 12/17/18 19:36 Dose: 10 mg Fentanyl (Duragesic) 12 mcg TRDERM Q72H [facility] Last Admin: 12/18/18 08:20 Dose: 12 mcg Furosemide (Lasix) 20 mg PO DAILY [facility] Last Admin: 12/18/18 08:18 Dose: 20 mg Levothyroxine Sodium (Synthroid) 88 mcg PO ACBREAKFAST [facility] Last Admin: 12/18/18 05:59 Dose: 88 mcg Lidocaine (Lidoderm 5%) 700 mg TOP DAILY [facility] Last Admin: 12/18/18 08:18 Dose: 700 mg Metoprolol Tartrate (Lopressor) 25 mg PO DAILY [facility] Last Admin: 12/18/18 08:19 Dose: 25 mg Miscellaneous Information (Remove Patch) 1 ea TRDERM Q24H [facility] Last Admin: 12/17/18 19:46 Dose: Not Given Miscellaneous Information (Remove Patch) 1 ea TRDERM Q72H [facility] Morphine Sulfate (Morphine) 1 mg IV Q2HR PRN PRN Reason: Pain Last Admin: 12/18/18 09:37 Dose: 1 mg Non-Formulary Medication (Multivitamin [Men's Multi-Vitamin]) 1 each PO 1200 [facility] Last Admin: 12/17/18 12:00 Dose: 1 each Non-Formulary Medication (Ubidecarenone [Co Q-10]) 200 mg PO 1200 [facility] Last Admin: 12/17/18 12:00 Dose: 200 mg Omeprazole (Omeprazole) 40 mg PO ACBREAKFAST [facility] Last Admin: 12/18/18 05:59 Dose: 40 mg Polyethylene Glycol (Miralax) 17 gm PO BID [facility] Last Admin: 12/18/18 08:19 Dose: Not Given Sodium Chloride (Saline Flush) 10 ml FLUSH ASDIRECTED PRN PRN Reason: Keep Vein Open Sodium Chloride (Saline Flush) 10 ml FLUSH BID [facility] Last Admin: 12/18/18 07:30 Dose: 10 ml Tamsulosin HCl (Flomax) 0.4 mg PO DAILY@1200 [facility] Last Admin: 12/17/18 11:53 Dose: Not Given Discontinued Medications Bupivacaine HCl (Sensorcaine-Mpf 0.5%) 4 ml INJECT ONETIME ONE Stop: 12/13/18 08:38 Last Admin: 12/13/18 08:37 Dose: 4 ml Bupivacaine HCl (Sensorcaine-Mpf 0.5%) 2 ml INJECT ASDIRECTED [facility] Stop: 12/14/18 23:59 Fentanyl (Duragesic) Confirm Administered Dose 12 mcg .ROUTE .STK-MED ONE Stop: 12/18/18 08:23 Last Admin: 12/18/18 08:28 Dose: Not Given Lactobacillus Acidophilus (Acidolphilus Extra Strength) 1 tab PO DAILY@1200 [facility] Last Admin: 12/14/18 12:06 Dose: Not Given Levothyroxine Sodium (Synthroid) 88 mcg PO ACBREAKFAST [facility] Last Admin: 12/15/18 08:54 Dose: 88 mcg Levothyroxine Sodium (Synthroid) Confirm Administered Dose 88 mcg .ROUTE .STK- MED ONE Stop: 12/13/18 07:07 Last Admin: 12/13/18 07:10 Dose: Not Given Levothyroxine Sodium (Synthroid) Confirm Administered Dose 88 mcg .ROUTE .STK- MED ONE Stop: 12/15/18 08:46 Last Admin: 12/15/18 09:00 Dose: Not Given Levothyroxine Sodium (Synthroid) Confirm Administered Dose 88 mcg .ROUTE .STK- MED ONE Stop: 12/16/18 06:11 Last Admin: 12/16/18 06:18 Dose: Not Given Lidocaine (Lidoderm 5%) 700 mg TOP ONETIME ONE Stop: 12/12/18 14:28 Last Admin: 12/12/18 14:40 Dose: 700 mg Lidocaine HCl (Xylocaine-Mpf 1%) 4 ml INJECT ONETIME ONE Stop: 12/13/18 08:37 Last Admin: 12/13/18 08:37 Dose: 4 ml Lidocaine HCl (Xylocaine-Mpf 1%) 2 ml INJECT ASDIRECTED [facility] Stop: 12/14/18 23:59 Morphine Sulfate (Morphine) Confirm Administered Dose 2 mg .ROUTE .STK-MED ONE Stop: 12/16/18 21:57 Last Admin: 12/16/18 22:28 Dose: Not Given Morphine Sulfate (Morphine) Confirm Administered Dose 2 mg .ROUTE .STK-MED ONE Stop: 12/17/18 07:54 Last Admin: 12/17/18 11:54 Dose: Not Given Morphine Sulfate (Morphine) Confirm Administered Dose 2 mg .ROUTE .STK-MED ONE Stop: 12/17/18 10:24 Last Admin: 12/17/18 11:54 Dose: Not Given Morphine Sulfate (Morphine) Confirm Administered Dose 2 mg .ROUTE .STK-MED ONE Stop: 12/17/18 11:36 Last Admin: 12/17/18 11:54 Dose: Not Given Morphine Sulfate (Morphine) Confirm Administered Dose 2 mg .ROUTE .STK-MED ONE Stop: 12/17/18 17:16 Last Admin: 12/17/18 17:38 Dose: Not Given Morphine Sulfate (Morphine) Confirm Administered Dose 2 mg .ROUTE .STK-MED ONE Stop: 12/17/18 20:10 Last Admin: 12/17/18 20:34 Dose: Not Given Morphine Sulfate (Morphine) Confirm Administered Dose 2 mg .ROUTE .STK-MED ONE Stop: 12/18/18 07:23 Last Admin: 12/18/18 08:18 Dose: Not Given Morphine Sulfate (Morphine) Confirm Administered Dose 2 mg .ROUTE .STK-MED ONE Stop: 12/18/18 09:32 Non-Formulary Medication (Omeprazole [Omeprazole]) 40 mg PO ACBREAKFAST [facility] Last Admin: 12/14/18 06:10 Dose: 40 mg Polyethylene Glycol (Miralax) 17 gm PO BID [facility] Triamcinolone Acetonide (Kenalog-40) 160 mg INJECT ONETIME ONE Stop: 12/13/18 08:36 Last Admin: 12/13/18 08:37 Dose: 160 mg Triamcinolone Acetonide (Kenalog-40) 160 mg INJECT ONETIME ONE Stop: 12/14/18 10:31 Last Admin: 12/14/18 14:26 Dose: 160 mg Triamcinolone Acetonide (Kenalog-40) 80 mg IM ASDIRECTED [facility] Stop: 12/14/18 23:59 - Exam General: Alert, Oriented, Cooperative HEENT: Pupils Equal, Pupils Reactive, EOMI Neck: Supple Lungs: Normal Respiratory Effort, Rales Cardiovascular: Regular Rate, Regular Rhythm GI/Abdominal Exam: Normal Bowel Sounds Back Exam: Paraspinal Tenderness, Vertebral Tenderness Extremities: Normal Inspection, Normal Range of Motion - Problem List & Annotations (1) Thoracic spine pain SNOMED Code(s): 120089880 Code(s): M54.6 - PAIN IN THORACIC SPINE Status: Acute Priority: High Current Visit: Yes (2) Paraspinal muscle spasm SNOMED Code(s): 96807855 Code(s): M62.830 - MUSCLE SPASM OF BACK Status: Acute Priority: High Current Visit: Yes (3) T12 compression fracture SNOMED Code(s): 575124611 Code(s): S22.080A - WEDGE COMPRESSION FRACTURE OF T11-T12 VERTEBRA, INIT Status: Acute Priority: High Current Visit: Yes Qualifiers: Encounter type: initial encounter Qualified Code(s): S22.080A - Wedge compression fracture of T11-T12 vertebra, initial encounter for closed fracture - Problem List Review Problem List Initiated/Reviewed/Updated: Yes - My Orders Last 24 Hours: My Active Orders 12/18/18 08:00 fentaNYL [Duragesic] 12 mcg TRDERM Q72H 12/18/18 10:33 Ready for Discharge [RC] PER UNIT ROUTINE - Plan Plan:: Patient was given trigger point injections for paraspinal pain. He does have spinal pain and we will obtain a CT for this area. PT/OT referral and further workup pending. Patient given 2 more trigger point injections at the level of T12 for relief. Some relief but patient still unable to transfer or move self without severe pain. Patient admitted for pain management. 12/15/18 Patient has improved symptoms with morphine administration and was able to sleep last night. He still requires full assistance for movement due to the pain. We will start nasal calcitonin and continue IV pain management as oral meds did not work well. The lidoderm patch, supportive care, icing/heating pads did not improve his symptoms much. Trigger point injections did improve some symptoms of the muscle ache and spasm pain but not the acute sharp shooting pain with movement of the T12 area and distribution. He basically cannot move without assistance due to the severe lower thoracic pain with bending or twisting movements. We will follow up pain management and monitor throughout today and tonight. 12/16/18 Patient showing improvement but still requires full assistance for transfer or movement. He is a high risk for falls on his feet even with his assisting device (Cane with feet). His pain has improved but not fully controlled. We will have to adjust as needed. I would like PT/OT evaluation - that will start on Tuesday. Continue current pain management and monitoring. 12/17/18 Patient will continue with current pain management. We will start fentanyl patch tomorrow am. F/u PT/OT evaluation in am. 12/18/18 Patient will be started on a Fentanyl TD patch for continuous management. He did do well on IV morphine and we will try to adjust according to his pain tolerance. F/u PT/OT management and recommendations. Patient has good BM and urination. He is eating well.
[2018-12-18] MEDS ORDERED: Tamsulosin 0.4 MG Cap.ER ONE (17:53)
[2018-12-18] MEDS: Tamsulosin 0.4 MG Cap.ER PO SCH (17:55)
[2018-12-18] MEDS: Non-Formulary Medication 1 Each (Ubidecarenone [Co Q-10] 200 MG) PO SCH (17:56)
[2018-12-18] MEDS: Non-Formulary Medication 1 Each (Multivitamin [Men's Multi-Vitamin] 1 EACH) PO SCH (17:56)
[2018-12-18] MEDS: Cyclobenzaprine 10 MG Tab PO SCH (20:45)
[2018-12-18] MEDS: Aspirin 81 MG Tab.EC PO SCH (20:45)
[2018-12-18] MEDS: atorvaSTATin 40 MG Tab PO SCH (20:45)
[2018-12-18] MEDS: Remove Patch*LIDODERM TRDERM SCH (21:23)
[2018-12-19] MEDS: Sodium Chloride 0.9% 10 ML Syringe FLUSH SCH ×3 (06:07→20:59)
[2018-12-19] MEDS: Levothyroxine 88 MCG Tab PO SCH (06:09)
[2018-12-19] MEDS: Acetaminophen 650 MG Tab.ER PO SCH ×3 (06:09→20:22)
[2018-12-19] MEDS: Omeprazole 20 MG Cap.CR PO SCH (06:09)
[2018-12-19] MEDS: Lidocaine 5% 700 MG Patch TOP SCH (07:38)
[2018-12-19] MEDS: Metoprolol Tartrate 25 MG Tab PO SCH (07:38)
[2018-12-19] MEDS: Polyethylene Glycol 3350 Powder 17 GM Packet PO SCH ×2 (07:39→20:57)
[2018-12-19] MEDS: Furosemide 20 MG Tab PO SCH (07:39)
[2018-12-19] MEDS: Clopidogrel 75 MG Tab PO SCH (07:39)
[2018-12-19] MEDS: Calcitonin (Salmon) Nasal Spray 3.7 ML Bottle NAS SCH (07:40)
--- NOTE | 2018-12-19 09:23 | PCM.PN ---
- General Info Date of Service: 12/19/18 Subjective Update: Patient continues to be very weak and wobbly. Functional Status: Reports: Pain Controlled, Tolerating Diet, Ambulating - Review of Systems General: Reports: Weakness HEENT: Reports: No Symptoms Pulmonary: Reports: No Symptoms Cardiovascular: Reports: No Symptoms Gastrointestinal: Reports: No Symptoms Genitourinary: Reports: No Symptoms Musculoskeletal: Reports: Back Pain Skin: Reports: No Symptoms Neurological: Reports: Difficulty Walking, Weakness Psychiatric: Reports: No Symptoms - Patient Data Vitals - Most Recent: Last Vital Signs Temp 36.8 C 12/19/18 04:00 Pulse 93 12/19/18 07:38 Resp 18 12/19/18 04:00 BP 183/92 H 12/19/18 07:38 Pulse Ox 95 12/19/18 04:00 Weight - Most Recent: 69.853 kg I&O - Last 24 Hours: Intake & Output 12/18/18 12/19/18 12/19/18 22:59 06:59 14:59 Intake Total 240 Output Total 1200 Balance -960 Med Orders - Current: Current Medications Acetaminophen (Tylenol Arthritis Pain) 650 mg PO Q8HR [facility] Last Admin: 12/19/18 06:09 Dose: 650 mg Albuterol (Ventolin Hfa) 8 gm INH Q4H PRN PRN Reason: Congestion Last Admin: 12/16/18 20:35 Dose: 2 puff Albuterol/Ipratropium (Duoneb 3.0-0.5 Mg/3 Ml) 3 ml NEB Q4H PRN PRN Reason: wheezing Last Admin: 12/16/18 15:11 Dose: 3 ml Aspirin (Halfprin) 81 mg PO QPM [facility] Last Admin: 12/18/18 20:45 Dose: 81 mg Atorvastatin Calcium (Lipitor) 40 mg PO BEDTIME [facility] Last Admin: 12/18/18 20:45 Dose: 40 mg Calcitonin [place] (Miacalcin Nasal [place]) 0 ml KARO DAILY [facility] Last Admin: 12/19/18 07:40 Dose: 1 spray Clopidogrel Bisulfate (Plavix) 75 mg PO DAILY [facility] Last Admin: 12/19/18 07:39 Dose: 75 mg Cyclobenzaprine HCl (Flexeril) 10 mg PO BEDTIME [facility] Last Admin: 12/18/18 20:45 Dose: 10 mg Fentanyl (Duragesic) 12 mcg TRDERM Q72H [facility] Last Admin: 12/18/18 08:20 Dose: 12 mcg Furosemide (Lasix) 20 mg PO DAILY [facility] Last Admin: 12/19/18 07:39 Dose: 20 mg Levothyroxine Sodium (Synthroid) 88 mcg PO ACBREAKFAST [facility] Last Admin: 12/19/18 06:09 Dose: 88 mcg Lidocaine (Lidoderm 5%) 700 mg TOP DAILY [facility] Last Admin: 12/19/18 07:38 Dose: 700 mg Metoprolol Tartrate (Lopressor) 25 mg PO DAILY [facility] Last Admin: 12/19/18 07:38 Dose: 25 mg Miscellaneous Information (Remove Patch) 1 ea TRDERM Q24H [facility] Last Admin: 12/18/18 21:23 Dose: 1 ea Miscellaneous Information (Remove Patch) 1 ea TRDERM Q72H [facility] Last Admin: 12/18/18 17:56 Dose: Not Given Morphine Sulfate (Morphine) 1 mg IV Q2HR PRN PRN Reason: Pain Last Admin: 12/18/18 14:11 Dose: 1 mg Non-Formulary Medication (Multivitamin [Men's Multi-Vitamin]) 1 each PO 1200 [facility] Last Admin: 12/18/18 17:56 Dose: 1 each Non-Formulary Medication (Ubidecarenone [Co Q-10]) 200 mg PO 1200 [facility] Last Admin: 12/18/18 17:56 Dose: 200 mg Omeprazole (Omeprazole) 40 mg PO ACBREAKFAST [facility] Last Admin: 12/19/18 06:09 Dose: 40 mg Polyethylene Glycol (Miralax) 17 gm PO BID [facility] Last Admin: 12/19/18 07:39 Dose: 17 gm Sodium Chloride (Saline Flush) 10 ml FLUSH ASDIRECTED PRN PRN Reason: Keep Vein Open Sodium Chloride (Saline Flush) 10 ml FLUSH BID [facility] Last Admin: 12/19/18 06:07 Dose: Not Given Tamsulosin HCl (Flomax) 0.4 mg PO DAILY@1200 [facility] Last Admin: 12/18/18 17:55 Dose: 0.4 mg Discontinued Medications Bupivacaine HCl (Sensorcaine-Mpf 0.5%) 4 ml INJECT ONETIME ONE Stop: 12/13/18 08:38 Last Admin: 12/13/18 08:37 Dose: 4 ml Bupivacaine HCl (Sensorcaine-Mpf 0.5%) 2 ml INJECT ASDIRECTED [facility] Stop: 12/14/18 23:59 Fentanyl (Duragesic) Confirm Administered Dose 12 mcg .ROUTE .STK-MED ONE Stop: 12/18/18 08:23 Last Admin: 12/18/18 08:28 Dose: Not Given Lactobacillus Acidophilus (Acidolphilus Extra Strength) 1 tab PO DAILY@1200 [facility] Last Admin: 12/14/18 12:06 Dose: Not Given Levothyroxine Sodium (Synthroid) 88 mcg PO ACBREAKFAST [facility] Last Admin: 12/15/18 08:54 Dose: 88 mcg Levothyroxine Sodium (Synthroid) Confirm Administered Dose 88 mcg .ROUTE .STK- MED ONE Stop: 12/13/18 07:07 Last Admin: 12/13/18 07:10 Dose: Not Given Levothyroxine Sodium (Synthroid) Confirm Administered Dose 88 mcg .ROUTE .STK- MED ONE Stop: 12/15/18 08:46 Last Admin: 12/15/18 09:00 Dose: Not Given Levothyroxine Sodium (Synthroid) Confirm Administered Dose 88 mcg .ROUTE .STK- MED ONE Stop: 12/16/18 06:11 Last Admin: 12/16/18 06:18 Dose: Not Given Lidocaine (Lidoderm 5%) 700 mg TOP ONETIME ONE Stop: 12/12/18 14:28 Last Admin: 12/12/18 14:40 Dose: 700 mg Lidocaine HCl (Xylocaine-Mpf 1%) 4 ml INJECT ONETIME ONE Stop: 12/13/18 08:37 Last Admin: 12/13/18 08:37 Dose: 4 ml Lidocaine HCl (Xylocaine-Mpf 1%) 2 ml INJECT ASDIRECTED [facility] Stop: 12/14/18 23:59 Morphine Sulfate (Morphine) Confirm Administered Dose 2 mg .ROUTE .STK-MED ONE Stop: 12/16/18 21:57 Last Admin: 12/16/18 22:28 Dose: Not Given Morphine Sulfate (Morphine) Confirm Administered Dose 2 mg .ROUTE .STK-MED ONE Stop: 12/17/18 07:54 Last Admin: 12/17/18 11:54 Dose: Not Given Morphine Sulfate (Morphine) Confirm Administered Dose 2 mg .ROUTE .STK-MED ONE Stop: 12/17/18 10:24 Last Admin: 12/17/18 11:54 Dose: Not Given Morphine Sulfate (Morphine) Confirm Administered Dose 2 mg .ROUTE .STK-MED ONE Stop: 12/17/18 11:36 Last Admin: 12/17/18 11:54 Dose: Not Given Morphine Sulfate (Morphine) Confirm Administered Dose 2 mg .ROUTE .STK-MED ONE Stop: 12/17/18 17:16 Last Admin: 12/17/18 17:38 Dose: Not Given Morphine Sulfate (Morphine) Confirm Administered Dose 2 mg .ROUTE .STK-MED ONE Stop: 12/17/18 20:10 Last Admin: 12/17/18 20:34 Dose: Not Given Morphine Sulfate (Morphine) Confirm Administered Dose 2 mg .ROUTE .STK-MED ONE Stop: 12/18/18 07:23 Last Admin: 12/18/18 08:18 Dose: Not Given Morphine Sulfate (Morphine) Confirm Administered Dose 2 mg .ROUTE .STK-MED ONE Stop: 12/18/18 09:32 Last Admin: 12/18/18 17:55 Dose: Not Given Non-Formulary Medication (Omeprazole [Omeprazole]) 40 mg PO ACBREAKFAST [facility] Last Admin: 12/14/18 06:10 Dose: 40 mg Polyethylene Glycol (Miralax) 17 gm PO BID [facility] Tamsulosin HCl (Flomax) Confirm Administered Dose 0.4 mg .ROUTE .STK-MED ONE Stop: 12/18/18 17:54 Last Admin: 12/18/18 17:57 Dose: Not Given Triamcinolone Acetonide (Kenalog-40) 160 mg INJECT ONETIME ONE Stop: 12/13/18 08:36 Last Admin: 12/13/18 08:37 Dose: 160 mg Triamcinolone Acetonide (Kenalog-40) 160 mg INJECT ONETIME ONE Stop: 12/14/18 10:31 Last Admin: 12/14/18 14:26 Dose: 160 mg Triamcinolone Acetonide (Kenalog-40) 80 mg IM ASDIRECTED [facility] Stop: 12/14/18 23:59 - Exam General: Alert, Oriented, Cooperative HEENT: Pupils Equal, Pupils Reactive, EOMI Neck: Supple Lungs: Clear to Auscultation, Normal Respiratory Effort Cardiovascular: Regular Rate, Regular Rhythm GI/Abdominal Exam: Normal Bowel Sounds, Soft, Non-Tender Back Exam: Paraspinal Tenderness, Vertebral Tenderness Extremities: Normal Inspection - Problem List & Annotations (1) Thoracic spine pain SNOMED Code(s): 093694567 Code(s): M54.6 - PAIN IN THORACIC SPINE Status: Acute Priority: High Current Visit: Yes (2) Paraspinal muscle spasm SNOMED Code(s): 72587183 Code(s): M62.830 - MUSCLE SPASM OF BACK Status: Acute Priority: High Current Visit: Yes (3) T12 compression fracture SNOMED Code(s): 082204939 Code(s): S22.080A - WEDGE COMPRESSION FRACTURE OF T11-T12 VERTEBRA, INIT Status: Acute Priority: High Current Visit: Yes Qualifiers: Encounter type: initial encounter Qualified Code(s): S22.080A - Wedge compression fracture of T11-T12 vertebra, initial encounter for closed fracture - Problem List Review Problem List Initiated/Reviewed/Updated: Yes - My Orders Last 24 Hours: My Active Orders 12/18/18 10:33 Ready for Discharge [RC] PER UNIT ROUTINE - Plan Plan:: Patient was given trigger point injections for paraspinal pain. He does have spinal pain and we will obtain a CT for this area. PT/OT referral and further workup pending. Patient given 2 more trigger point injections at the level of T12 for relief. Some relief but patient still unable to transfer or move self without severe pain. Patient admitted for pain management. 12/15/18 Patient has improved symptoms with morphine administration and was able to sleep last night. He still requires full assistance for movement due to the pain. We will start nasal calcitonin and continue IV pain management as oral meds did not work well. The lidoderm patch, supportive care, icing/heating pads did not improve his symptoms much. Trigger point injections did improve some symptoms of the muscle ache and spasm pain but not the acute sharp shooting pain with movement of the T12 area and distribution. He basically cannot move without assistance due to the severe lower thoracic pain with bending or twisting movements. We will follow up pain management and monitor throughout today and tonight. 12/16/18 Patient showing improvement but still requires full assistance for transfer or movement. He is a high risk for falls on his feet even with his assisting device (Cane with feet). His pain has improved but not fully controlled. We will have to adjust as needed. I would like PT/OT evaluation - that will start on Tuesday. Continue current pain management and monitoring. 12/17/18 Patient will continue with current pain management. We will start fentanyl patch tomorrow am. F/u PT/OT evaluation in am. 12/18/18 Patient will be started on a Fentanyl TD patch for continuous management. He did do well on IV morphine and we will try to adjust according to his pain tolerance. F/u PT/OT management and recommendations. Patient has good BM and urination. He is eating well. 12/19/18 We will have to continue Physical Therapy and Occupational therapy for strengthening. He is not safe for home due to his fall risk. His lives with him but will unable to assist him for ambulation and transfer due to his weakness and weight. Continue Fentanyl at this time and we will d/c IV and place on oral morhpine prn. F/u PT/OT eval. Patient is under better pain control. F/u in AM. Continue nasal calcitonin.
[2018-12-19] MEDS: Albuterol/Ipratropium 3.0-0.5 MG/3 ML Neb Soln NEB PRN (12:37)
[2018-12-19] MEDS: Non-Formulary Medication 1 Each (Ubidecarenone [Co Q-10] 200 MG) PO SCH (12:40)
[2018-12-19] MEDS: Tamsulosin 0.4 MG Cap.ER PO SCH (12:40)
[2018-12-19] MEDS: Non-Formulary Medication 1 Each (Multivitamin [Men's Multi-Vitamin] 1 EACH) PO SCH (12:40)
[2018-12-19] MEDS: Aspirin 81 MG Tab.EC PO SCH (20:57)
[2018-12-19] MEDS: atorvaSTATin 40 MG Tab PO SCH (20:57)
[2018-12-19] MEDS: Remove Patch*LIDODERM TRDERM SCH (20:57)
[2018-12-19] MEDS: Cyclobenzaprine 10 MG Tab PO SCH (20:57)
[2018-12-20] MEDS: Levothyroxine 88 MCG Tab PO SCH (08:26)
[2018-12-20] MEDS: Acetaminophen 650 MG Tab.ER PO SCH ×2 (08:26→13:43)
[2018-12-20] MEDS: Omeprazole 20 MG Cap.CR PO SCH (08:26)
[2018-12-20] MEDS: Clopidogrel 75 MG Tab PO SCH (08:26)
[2018-12-20] MEDS: Metoprolol Tartrate 25 MG Tab PO SCH (08:27)
[2018-12-20] MEDS: Polyethylene Glycol 3350 Powder 17 GM Packet PO SCH (08:27)
[2018-12-20] MEDS: Furosemide 20 MG Tab PO SCH (08:27)
[2018-12-20] MEDS: Lidocaine 5% 700 MG Patch TOP SCH (08:28)
[2018-12-20] MEDS: Calcitonin (Salmon) Nasal Spray 3.7 ML Bottle NAS SCH (08:29)
[2018-12-20] MEDS: Sodium Chloride 0.9% 10 ML Syringe FLUSH SCH (08:30)
[2018-12-20] MEDS ORDERED: Morphine Solution 10 MG/5 ML ML 100 ML Bottle PO PRN ×2 (10:24→10:42)
[2018-12-20] MEDS ORDERED: Morphine Oral Concentrate 20 MG/ML 30 ML Bottle PO PRN (10:38)
[2018-12-20 12:29] VITALS: BP 128/81; PULSE 88
[2018-12-20] MEDS: Tamsulosin 0.4 MG Cap.ER PO SCH (12:38)
[2018-12-20] MEDS: Non-Formulary Medication 1 Each (Ubidecarenone [Co Q-10] 200 MG) PO SCH (12:38)
[2018-12-20] MEDS: Non-Formulary Medication 1 Each (Multivitamin [Men's Multi-Vitamin] 1 EACH) PO SCH (12:38)
--- NOTE | 2018-12-20 14:19 | PCM.DCSUM1 ---
Discharge Summary - Discharge Data Discharge Date: 12/20/18 Discharge Disposition: DC/Tfer W/I Hosp To Swing 61 Condition: Fair - Discharge Diagnosis/Problem(s) (1) Thoracic spine pain SNOMED Code(s): 920174782 ICD Code: M54.6 - PAIN IN THORACIC SPINE Status: Acute Priority: High (2) Paraspinal muscle spasm SNOMED Code(s): 02819165 ICD Code: M62.830 - MUSCLE SPASM OF BACK Status: Acute Priority: High (3) T12 compression fracture SNOMED Code(s): 900611219 ICD Code: S22.080A - WEDGE COMPRESSION FRACTURE OF T11-T12 VERTEBRA, INIT Status: Acute Priority: High Qualifiers: - Patient Summary/Data Consults: Consultations 12/12/18 15:06 PT Evaluation and Treatment [CONS] Routine Please Evaluate and Treat. PT Reason for Consult: Ambulation This query below is only for informational purposes and is not editable. 12/13/18 10:57 Consult to Occupational Therapy [OT Evaluation and Treatment] [CONS] Routine Please Evaluate and Treat. OT Reason for Consult: ADL's Special Instructions: Evaluation of ADL's with back pain concerns. This query below is only for informational purposes and is not editable. Admission Diagnosis/Problem: Acute back pain - Patient Instructions Diet: Heart Healthy Diet Activity: As Tolerated Driving: Do Not Drive - Discharge Plan *PRESCRIPTION DRUG MONITORING PROGRAM REVIEWED*: Not Applicable *COPY OF PRESCRIPTION DRUG MONITORING REPORT IN PATIENT LUCIO: Not Applicable Home Medications: Home Meds Aspirin [Adult Low Dose Aspirin EC] 81 mg PO QPM 11/16/13 [History] Levothyroxine [Synthroid] 88 mcg PO ACBREAKFAST 11/16/13 [History] atorvaSTATin [Lipitor] 40 mg PO BEDTIME 01/13/16 [History] Acetaminophen [Tylenol Arthritis] 650 mg PO Q8HR 08/25/17 [History] Clopidogrel [Plavix] 75 mg PO DAILY 08/25/17 [History] Furosemide [Lasix] 20 mg PO DAILY 08/25/17 [History] Metoprolol Tartrate [Lopressor] 25 mg PO DAILY 08/25/17 [History] Multivitamin [Men's Multi-Vitamin] 1 each PO 1200 08/25/17 [History] Tamsulosin [Flomax] 0.4 mg PO DAILY@1200 08/25/17 [History] Ubidecarenone [Co Q-10] 200 mg PO 1200 08/25/17 [History] Albuterol [Ventolin HFA] 2 inhalation INH Q4H PRN inhaler 09/23/18 [Rx] Albuterol/Ipratropium [DuoNeb 3.0-0.5 MG/3 ML] 3 ml NEB Q4H PRN neb 10/20/18 [ Rx] Omeprazole 40 mg PO ACBREAKFAST cap.cr 10/20/18 [Rx] Calcitonin ([place]) [Miacalcin Nasal [place]] 1 spray NS DAILY 12/20/18 [History] Cyclobenzaprine HCl 10 mg PO BEDTIME 12/20/18 [History] Lidocaine 5% [Lidoderm 5%] 1 patch TOP DAILY 12/20/18 [History] Morphine Sulfate 1 mg PO Q2H PRN 12/20/18 [History] Polyethylene Glycol 3350 [MiraLAX] 17 gm PO BID 12/20/18 [History] fentaNYL [Duragesic] 12 mcg TD Q72H 12/20/18 [History] Forms: ED Department Discharge Referrals: PCP,None [Primary Care Provider] - - Discharge Summary/Plan Comment DC Time >30 min.: Yes Discharge Summary/Plan Comment: Discussed with patient plan of care and management. Discussed requirements of rehabilitation. Patient will do his best when he gets to rehab. Patient's pain under control and doing well with fentanyl patch and oral meds. Patient to continue working with PT/OT for deconditioning and weakness. Discussed with family and regarding care and management. We will f/u Tuesday for further management while in swing bed. - Patient Data Vitals - Most Recent: Last Vital Signs Temp 36.4 C 12/20/18 08:00 Pulse 88 12/20/18 12:00 Resp 18 12/20/18 12:00 BP 128/81 12/20/18 12:00 Pulse Ox 95 12/20/18 12:00 Weight - Most Recent: 64.501 kg I&O - Last 24 hours: Intake & Output 12/19/18 12/20/18 12/20/18 22:59 06:59 14:59 Intake Total 350 400 Output Total 1150 1150 Balance -800 -750 Med Orders - Current: Current Medications Discontinued Medications Acetaminophen (Tylenol Arthritis Pain) 650 mg PO Q8HR [facility] Last Admin: 12/20/18 13:43 Dose: 650 mg Albuterol (Ventolin Hfa) 8 gm INH Q4H PRN PRN Reason: Congestion Last Admin: 12/16/18 20:35 Dose: 2 puff Albuterol/Ipratropium (Duoneb 3.0-0.5 Mg/3 Ml) 3 ml NEB Q4H PRN PRN Reason: wheezing Last Admin: 12/19/18 12:37 Dose: 3 ml Aspirin (Halfprin) 81 mg PO QPM [facility] Last Admin: 12/19/18 20:57 Dose: 81 mg Atorvastatin Calcium (Lipitor) 40 mg PO BEDTIME [facility] Last Admin: 12/19/18 20:57 Dose: 40 mg Bupivacaine HCl (Sensorcaine-Mpf 0.5%) 4 ml INJECT ONETIME ONE Stop: 12/13/18 08:38 Last Admin: 12/13/18 08:37 Dose: 4 ml Bupivacaine HCl (Sensorcaine-Mpf 0.5%) 2 ml INJECT ASDIRECTED [facility] Stop: 12/14/18 23:59 Calcitonin [place] (Miacalcin Nasal [place]) 0 ml KARO DAILY [facility] Last Admin: 12/20/18 08:29 Dose: 1 spray Clopidogrel Bisulfate (Plavix) 75 mg PO DAILY [facility] Last Admin: 12/20/18 08:26 Dose: 75 mg Cyclobenzaprine HCl (Flexeril) 10 mg PO BEDTIME [facility] Last Admin: 12/19/18 20:57 Dose: 10 mg Fentanyl (Duragesic) 12 mcg TRDERM Q72H [facility] Last Admin: 12/18/18 08:20 Dose: 12 mcg Fentanyl (Duragesic) Confirm Administered Dose 12 mcg .ROUTE .STK-MED ONE Stop: 12/18/18 08:23 Last Admin: 12/18/18 08:28 Dose: Not Given Furosemide (Lasix) 20 mg PO DAILY [facility] Last Admin: 12/20/18 08:27 Dose: 20 mg Lactobacillus Acidophilus (Acidolphilus Extra Strength) 1 tab PO DAILY@1200 [facility] Last Admin: 12/14/18 12:06 Dose: Not Given Levothyroxine Sodium (Synthroid) 88 mcg PO ACBREAKFAST [facility] Last Admin: 12/15/18 08:54 Dose: 88 mcg Levothyroxine Sodium (Synthroid) Confirm Administered Dose 88 mcg .ROUTE .STK- MED ONE Stop: 12/13/18 07:07 Last Admin: 12/13/18 07:10 Dose: Not Given Levothyroxine Sodium (Synthroid) Confirm Administered Dose 88 mcg .ROUTE .STK- MED ONE Stop: 12/15/18 08:46 Last Admin: 12/15/18 09:00 Dose: Not Given Levothyroxine Sodium (Synthroid) Confirm Administered Dose 88 mcg .ROUTE .STK- MED ONE Stop: 12/16/18 06:11 Last Admin: 12/16/18 06:18 Dose: Not Given Levothyroxine Sodium (Synthroid) 88 mcg PO ACBREAKFAST [facility] Last Admin: 12/20/18 08:26 Dose: 88 mcg Lidocaine (Lidoderm 5%) 700 mg TOP ONETIME ONE Stop: 12/12/18 14:28 Last Admin: 12/12/18 14:40 Dose: 700 mg Lidocaine (Lidoderm 5%) 700 mg TOP DAILY [facility] Last Admin: 12/20/18 08:28 Dose: 700 mg Lidocaine HCl (Xylocaine-Mpf 1%) 4 ml INJECT ONETIME ONE Stop: 12/13/18 08:37 Last Admin: 12/13/18 08:37 Dose: 4 ml Lidocaine HCl (Xylocaine-Mpf 1%) 2 ml INJECT ASDIRECTED [facility] Stop: 12/14/18 23:59 Metoprolol Tartrate (Lopressor) 25 mg PO DAILY [facility] Last Admin: 12/20/18 08:27 Dose: 25 mg Miscellaneous Information (Remove Patch) 1 ea TRDERM Q24H [facility] Last Admin: 12/19/18 20:57 Dose: 1 ea Miscellaneous Information (Remove Patch) 1 ea TRDERM Q72H [facility] Last Admin: 12/18/18 17:56 Dose: Not Given Morphine Sulfate (Morphine) 1 mg IV Q2HR PRN PRN Reason: Pain Last Admin: 12/18/18 14:11 Dose: 1 mg Morphine Sulfate (Morphine) Confirm Administered Dose 2 mg .ROUTE .STK-MED ONE Stop: 12/16/18 21:57 Last Admin: 12/16/18 22:28 Dose: Not Given Morphine Sulfate (Morphine) Confirm Administered Dose 2 mg .ROUTE .STK-MED ONE Stop: 12/17/18 07:54 Last Admin: 12/17/18 11:54 Dose: Not Given Morphine Sulfate (Morphine) Confirm Administered Dose 2 mg .ROUTE .STK-MED ONE Stop: 12/17/18 10:24 Last Admin: 12/17/18 11:54 Dose: Not Given Morphine Sulfate (Morphine) Confirm Administered Dose 2 mg .ROUTE .STK-MED ONE Stop: 12/17/18 11:36 Last Admin: 12/17/18 11:54 Dose: Not Given Morphine Sulfate (Morphine) Confirm Administered Dose 2 mg .ROUTE .STK-MED ONE Stop: 12/17/18 17:16 Last Admin: 12/17/18 17:38 Dose: Not Given Morphine Sulfate (Morphine) Confirm Administered Dose 2 mg .ROUTE .STK-MED ONE Stop: 12/17/18 20:10 Last Admin: 12/17/18 20:34 Dose: Not Given Morphine Sulfate (Morphine) Confirm Administered Dose 2 mg .ROUTE .STK-MED ONE Stop: 12/18/18 07:23 Last Admin: 12/18/18 08:18 Dose: Not Given Morphine Sulfate (Morphine) Confirm Administered Dose 2 mg .ROUTE .STK-MED ONE Stop: 12/18/18 09:32 Last Admin: 12/18/18 17:55 Dose: Not Given Morphine Sulfate (Morphine 10 Mg/5 Ml) 1 mg PO Q2H PRN PRN Reason: PAIN Non-Formulary Medication (Multivitamin [Men's Multi-Vitamin]) 1 each PO 1200 [facility] Last Admin: 12/20/18 12:38 Dose: 1 each Non-Formulary Medication (Ubidecarenone [Co Q-10]) 200 mg PO 1200 [facility] Last Admin: 12/20/18 12:38 Dose: 200 mg Non-Formulary Medication (Omeprazole [Omeprazole]) 40 mg PO ACBREAKFAST [facility] Last Admin: 12/14/18 06:10 Dose: 40 mg Omeprazole (Omeprazole) 40 mg PO ACBREAKFAST [facility] Last Admin: 12/20/18 08:26 Dose: 40 mg Polyethylene Glycol (Miralax) 17 gm PO BID [facility] Polyethylene Glycol (Miralax) 17 gm PO BID [facility] Last Admin: 12/20/18 08:27 Dose: 17 gm Sodium Chloride (Saline Flush) 10 ml FLUSH ASDIRECTED PRN PRN Reason: Keep Vein Open Sodium Chloride (Saline Flush) 10 ml FLUSH BID [facility] Last Admin: 12/20/18 08:30 Dose: Not Given Tamsulosin HCl (Flomax) 0.4 mg PO DAILY@1200 [facility] Last Admin: 12/20/18 12:38 Dose: 0.4 mg Tamsulosin HCl (Flomax) Confirm Administered Dose 0.4 mg .ROUTE .STK-MED ONE Stop: 12/18/18 17:54 Last Admin: 12/18/18 17:57 Dose: Not Given Triamcinolone Acetonide (Kenalog-40) 160 mg INJECT ONETIME ONE Stop: 12/13/18 08:36 Last Admin: 12/13/18 08:37 Dose: 160 mg Triamcinolone Acetonide (Kenalog-40) 160 mg INJECT ONETIME ONE Stop: 12/14/18 10:31 Last Admin: 12/14/18 14:26 Dose: 160 mg Triamcinolone Acetonide (Kenalog-40) 80 mg IM ASDIRECTED [facility] Stop: 12/14/18 23:59
== END 2018-12-20 13:15 | disposition swing bed (61) | DRG 544 ==
LOC: LB.ED 13:00 → UNDOADMOB 14:56 → LB.MS 14:56 → INTOOBSV 15:06 → OBSVTOIN 15:06 → LB.MS 15:06 → OBSVTOIN 12-14 14:50
PROVIDERS: ADMIT Family Medicine; ATTEND Family Medicine
DX: M54.9 Dorsalgia, unspecified (principal); M48.54XA Collapsed vertebra, not elsewhere classified, thoracic region, initial encounter for fracture; R53.1 Weakness; H54.7 Unspecified visual loss; I25.10 Atherosclerotic heart disease of native coronary artery without angina pectoris; E78.00 Pure hypercholesterolemia, unspecified; I10 Essential (primary) hypertension; K59.09 Other constipation; N40.0 Benign prostatic hyperplasia without lower urinary tract symptoms; E11.9 Type 2 diabetes mellitus without complications; E03.9 Hypothyroidism, unspecified; M62.830 Muscle spasm of back; I25.2 Old myocardial infarction; Z95.5 Presence of coronary angioplasty implant and graft; Z87.01 Personal history of pneumonia (recurrent); Z79.02 Long term (current) use of antithrombotics/antiplatelets; Z79.82 Long term (current) use of aspirin; Z79.890 Hormone replacement therapy; Z79.899 Other long term (current) drug therapy; Z95.1 Presence of aortocoronary bypass graft; Z86.73 Personal history of transient ischemic attack (TIA), and cerebral infarction without residual deficits
CPT/HCPCS: 36415; 72128; 82962; 84443; 97161; 99284; A0425; A0429; A9270 ×29; J2001; J3301 ×2; J3490; 20552; 96374; 96376; 97110-GP; 97165-GO; 97530-GO; 97530-GP; 97535-GO; 99219; 99225; G0378; J2270; J7620-GY

== ENCOUNTER 2018-12-20 07:44 | Inpatient (IN) | payer MEDICARE ==
[2018-12-20] MEDS ORDERED: Albuterol/Ipratropium 3.0-0.5 MG/3 ML Neb Soln NEB PRN (13:52)
[2018-12-20] MEDS ORDERED: Albuterol 8 GM Inhaler INH PRN (13:52)
--- NOTE | 2018-12-20 13:59 | PCM.HP ---
H&P History of Present Illness - General Date of Service: 12/20/18 Admit Problem/Dx: Admission Diagnosis/Problem Admission Diagnosis/Problem Compression fracture of T12 vertebra Source of Information: Patient, Family History Limitations: Reports: No Limitations - History of Present Illness Initial Comments - Free Text/Narative: This is a frail 88yo M with prior history of CVA admitted to swing bed for strengthening and improvement of ADLs secondary to deconditioning and debility. He is a fall risk and is not safe at home by himself. He recently had a compression fracture of the T12 vertebrae and unable to move due to the pain. The pain has improved and under control at this time with a fentanyl patch and oral medications. Duration of Symptoms: Reports: Constant Location: Reports: Back Quality: Reports: Ache, Stabbing Severity: Mild Improves with: Reports: Immobilization Worsens with: Reports: Movement Associated Symptoms: Reports: Weakness - Related Data Allergies/Adverse Reactions: Allergies Allergy/AdvReac Type Severity Reaction Status Date / Time No Known Allergies Allergy Verified 12/20/18 12:47 Home Medications: Home Meds Aspirin [Adult Low Dose Aspirin EC] 81 mg PO QPM 11/16/13 [History] Levothyroxine [Synthroid] 88 mcg PO ACBREAKFAST 11/16/13 [History] atorvaSTATin [Lipitor] 40 mg PO BEDTIME 01/13/16 [History] Acetaminophen [Tylenol Arthritis] 650 mg PO Q8HR 08/25/17 [History] Clopidogrel [Plavix] 75 mg PO DAILY 08/25/17 [History] Furosemide [Lasix] 20 mg PO DAILY 08/25/17 [History] Metoprolol Tartrate [Lopressor] 25 mg PO DAILY 08/25/17 [History] Multivitamin [Men's Multi-Vitamin] 1 each PO 1200 08/25/17 [History] Tamsulosin [Flomax] 0.4 mg PO DAILY@1200 08/25/17 [History] Ubidecarenone [Co Q-10] 200 mg PO 1200 08/25/17 [History] Albuterol [Ventolin HFA] 2 inhalation INH Q4H PRN inhaler 09/23/18 [Rx] Albuterol/Ipratropium [DuoNeb 3.0-0.5 MG/3 ML] 3 ml NEB Q4H PRN neb 10/20/18 [ Rx] Omeprazole 40 mg PO ACBREAKFAST cap.cr 10/20/18 [Rx] Calcitonin ([place]) [Miacalcin Nasal [place]] 1 spray NS DAILY 12/20/18 [History] Cyclobenzaprine HCl 10 mg PO BEDTIME 12/20/18 [History] Lidocaine 5% [Lidoderm 5%] 1 patch TOP DAILY 12/20/18 [History] Morphine Sulfate 1 mg PO Q2H PRN 12/20/18 [History] Polyethylene Glycol 3350 [MiraLAX] 17 gm PO BID 12/20/18 [History] fentaNYL [Duragesic] 12 mcg TD Q72H 12/20/18 [History] Past Medical History HEENT History: Reports: Impaired Vision, Macular Degeneration, Other (See Below) 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 Cardiovascular History: Reports: Bypass, CAD, High Cholesterol, Hypertension, [place] , Stents Respiratory History: Reports: Pneumonia, Recurrent, Other (See Below) Other Respiratory History: chronic bronchitis Gastrointestinal History: Reports: Chronic Constipation Genitourinary History: Reports: BPH Musculoskeletal History: Reports: Fracture Neurological History: Reports: CVA, TIA Endocrine/Metabolic History: Reports: Diabetes, Type II, Hypothyroidism, Other ( See Below) Other Endocrine/Metabolic History: diet controled diabetes Oncologic (Cancer) History: Reports: None - Infectious Disease History Infectious Disease History: Reports: Chicken Pox, Measles, Mumps - Past Surgical History HEENT Surgical History: Reports: Cataract Surgery Cardiovascular Surgical History: Reports: Coronary Artery Bypass, Coronary Artery Stent, Vascular Surgery Respiratory Surgical History: Reports: None GI Surgical History: Reports: None Male Surgical History: Reports: None Endocrine Surgical History: Reports: None Neurological Surgical History: Reports: None Musculoskeletal Surgical History: Reports: Shoulder Surgery, Other (See Below) Other Musculoskeletal Surgeries/Procedures:: Bilat shoulder sx, fx arm Social & Family History - Family History Family Medical History: Noncontributory - Caffeine Use Caffeine Use: Reports: Coffee Caffeine Use Comment: 3 cups day H&P Review of Systems - Review of Systems: Review Of Systems: ROS reveals no pertinent complaints other than HPI. Exam - Exam Exam: See Below - Vital Signs Weight: 64.495 kg - Exam General: Oriented, Cooperative HEENT: PERRLA, Conjunctiva Clear, EACs Clear, EOMI Neck: Supple, Trachea Midline Lungs: Clear to Auscultation, Normal Respiratory Effort Cardiovascular: Regular Rate, Regular Rhythm GI/Abdominal Exam: Normal Bowel Sounds Back Exam: Paraspinal Tenderness, Vertebral Tenderness Extremities: Normal Inspection Peripheral Pulses: 2+: Dorsalis Pedis (L), Dorsalis Pedis (R) Skin: Warm, Dry, Intact - Problem List (1) Paraspinal muscle spasm SNOMED Code(s): 88146577 ICD Code: M62.830 - MUSCLE SPASM OF BACK Status: Acute Priority: High Current Visit: No (2) T12 compression fracture SNOMED Code(s): 145820232 ICD Code: S22.080A - WEDGE COMPRESSION FRACTURE OF T11-T12 VERTEBRA, INIT Status: Acute Priority: High Current Visit: No Qualifiers: (3) Thoracic spine pain SNOMED Code(s): 898277658 ICD Code: M54.6 - PAIN IN THORACIC SPINE Status: Acute Priority: High Current Visit: No (4) Severe muscle deconditioning SNOMED Code(s): 802463826 ICD Code: R29.898 - OTH SYMPTOMS AND SIGNS INVOLVING THE MUSCULOSKELETAL SYSTEM Status: Chronic Priority: High Current Visit: Yes (5) Weakness generalized SNOMED Code(s): 05360520 ICD Code: R53.1 - WEAKNESS Status: Acute Priority: High Current Visit: Yes Problem List Initiated/Reviewed/Updated: Yes Orders Last 24hrs: Active Orders 24 hr Category Date Time Status Patient Status [ADT] Routine ADT 12/20/18 12:26 Active Acetaminophen [Tylenol Arthritis Pain] Med 12/20/18 14:00 Ordered 650 mg PO Q8HR Albuterol [Ventolin HFA] Med 12/20/18 13:52 Ordered 2 inhalation INH Q4H PRN Albuterol/Ipratropium [DuoNeb 3.0-0.5 MG/3 ML] Med 12/20/18 13:52 Ordered 3 ml NEB Q4H PRN Aspirin [Halfprin] Med 12/20/18 20:00 Ordered 81 mg PO QPM Calcitonin ([place]) [Miacalcin Nasal [place]] Med 12/21/18 08:00 Ordered 1 spray KARO DAILY Clopidogrel [Plavix] Med 12/21/18 08:00 Ordered 75 mg PO DAILY Cyclobenzaprine [Flexeril] Med 12/20/18 20:00 Ordered 10 mg PO BEDTIME Furosemide [Lasix] Med 12/21/18 08:00 Ordered 20 mg PO DAILY Levothyroxine [Synthroid] Med 12/21/18 07:00 Ordered 88 mcg PO ACBREAKFAST Lidocaine 5% [Lidoderm 5%] Med 12/21/18 08:00 Ordered 1 patch TOP DAILY Metoprolol Tartrate [Lopressor] Med 12/21/18 08:00 Ordered 25 mg PO DAILY Morphine [Morphine 10 MG/5 ML] Med 12/20/18 13:52 Ordered 1 mg PO Q2H PRN Multivitamin [Men's Multi-Vitamin] Med 12/21/18 12:00 Ordered 1 each PO 1200 Omeprazole Med 12/21/18 07:00 Ordered 40 mg PO ACBREAKFAST Polyethylene Glycol 3350 [MiraLAX] Med 12/20/18 20:00 Ordered 17 gm PO BID Tamsulosin [Flomax] Med 12/21/18 12:00 Ordered 0.4 mg PO DAILY@1200 Ubidecarenone [Co Q-10] Med 12/21/18 12:00 Ordered 200 mg PO 1200 atorvaSTATin [Lipitor] Med 12/20/18 20:00 Ordered 40 mg PO BEDTIME fentaNYL [Duragesic] Med 12/20/18 14:00 Ordered 12 mcg TRDERM Q72H Assessment/Plan Comment:: Patient will continue PT/OT as much as he can. I am not sure if he can tolerate the length of physical therapy required for his stay. He is willing to try. Patient will be continually assessed and managed by PT/OT. Discussed plan of care with and Care management. We will f/u later this week on Tuesday.
[2018-12-20] MEDS ORDERED: Morphine Solution 10 MG/5 ML UD Cup PO PRN (14:30)
[2018-12-20] MEDS ORDERED: Tuberculin, PPD 5 Units/0.1 ML 1 ML MDV IDERM ONE (14:33)
[2018-12-20] MEDS: Acetaminophen 650 MG Tab.ER PO SCH ×2 (15:11→21:45)
[2018-12-20] MEDS: Cyclobenzaprine 10 MG Tab PO SCH (20:32)
[2018-12-20] MEDS: Aspirin 81 MG Tab.EC PO SCH (20:32)
[2018-12-20] MEDS: Polyethylene Glycol 3350 Powder 17 GM Packet PO SCH ×2 (20:32→20:48)
[2018-12-20] MEDS: atorvaSTATin 40 MG Tab PO SCH (20:32)
[2018-12-21] MEDS: Acetaminophen 650 MG Tab.ER PO SCH ×3 (07:21→21:19)
[2018-12-21] MEDS: Lidocaine 5% 700 MG Patch TOP SCH (07:27)
[2018-12-21] MEDS: Omeprazole 20 MG Cap.CR PO SCH (07:27)
[2018-12-21] MEDS: Levothyroxine 88 MCG Tab PO SCH (07:54)
[2018-12-21] MEDS: Furosemide 20 MG Tab PO SCH (07:55)
[2018-12-21] MEDS: Metoprolol Tartrate 25 MG Tab PO SCH (07:55)
[2018-12-21] MEDS: fentaNYL 12 MCG/HR Transdermal Patch TRDERM SCH (08:00)
[2018-12-21] MEDS: Polyethylene Glycol 3350 Powder 17 GM Packet PO SCH ×2 (08:01→19:46)
[2018-12-21] MEDS: Clopidogrel 75 MG Tab PO SCH (08:05)
[2018-12-21] MEDS ORDERED: Non-Formulary Medication 1 Each (Ubidecarenone [Co Q-10] 200 MG) PO SCH (12:00)
[2018-12-21] MEDS ORDERED: Multivitamins with Iron/Calcium/Folic Acid/Minerals Tab PO SCH (12:00)
[2018-12-21] MEDS ORDERED: Tamsulosin 0.4 MG Cap.ER PO SCH (12:00)
[2018-12-21] MEDS: Calcitonin (Salmon) Nasal Spray 3.7 ML Bottle NAS SCH (15:41)
[2018-12-21] MEDS: Cyclobenzaprine 10 MG Tab PO SCH (19:46)
[2018-12-21] MEDS: atorvaSTATin 40 MG Tab PO SCH (19:46)
[2018-12-21] MEDS: Aspirin 81 MG Tab.EC PO SCH (19:46)
[2018-12-21] MEDS ORDERED: Remove Patch*LIDODERM TRDERM SCH (20:00)
[2018-12-22] MEDS: Acetaminophen 650 MG Tab.ER PO SCH (06:26)
[2018-12-22] MEDS: Levothyroxine 88 MCG Tab PO SCH (06:26)
[2018-12-22] MEDS: Omeprazole 20 MG Cap.CR PO SCH (06:27)
[2018-12-22] MEDS: Metoprolol Tartrate 25 MG Tab PO SCH (10:13)
[2018-12-22] MEDS: Furosemide 20 MG Tab PO SCH (10:14)
[2018-12-22] MEDS: Clopidogrel 75 MG Tab PO SCH (10:14)
[2018-12-22] MEDS: Lidocaine 5% 700 MG Patch TOP SCH (10:14)
[2018-12-22] MEDS: Calcitonin (Salmon) Nasal Spray 3.7 ML Bottle NAS SCH (10:15)
[2018-12-22] MEDS: Polyethylene Glycol 3350 Powder 17 GM Packet PO SCH (10:15)
[2018-12-22 10:17] VITALS: BP 157/99; PULSE 96
--- NOTE | 2018-12-22 10:34 | PCM.DCSUM1 ---
Discharge Summary - Discharge Data Discharge Date: 12/22/18 Discharge Disposition: Home, Self-Care 01 Condition: Fair - Discharge Diagnosis/Problem(s) (1) Paraspinal muscle spasm SNOMED Code(s): 92318465 ICD Code: M62.830 - MUSCLE SPASM OF BACK Status: Acute Priority: High Current Visit: No (2) T12 compression fracture SNOMED Code(s): 455919677 ICD Code: S22.080A - WEDGE COMPRESSION FRACTURE OF T11-T12 VERTEBRA, INIT Status: Acute Priority: High Current Visit: No Qualifiers: (3) Thoracic spine pain SNOMED Code(s): 690894700 ICD Code: M54.6 - PAIN IN THORACIC SPINE Status: Acute Priority: High Current Visit: No (4) Severe muscle deconditioning SNOMED Code(s): 974197184 ICD Code: R29.898 - OTH SYMPTOMS AND SIGNS INVOLVING THE MUSCULOSKELETAL SYSTEM Status: Chronic Priority: High Current Visit: Yes (5) Weakness generalized SNOMED Code(s): 18624065 ICD Code: R53.1 - WEAKNESS Status: Acute Priority: High Current Visit: Yes - Patient Summary/Data Consults: Consultations 12/20/18 14:33 OT Evaluation and Treatment [CONS] Routine Please Evaluate and Treat. OT Reason for Consult: Strengthening This query below is only for informational purposes and is not editable. Admission Diagnosis/Problem: Compression fracture of T12 vertebra PT Evaluation and Treatment [CONS] Routine Please Evaluate and Treat. PT Reason for Consult: Strengthening This query below is only for informational purposes and is not editable. Admission Diagnosis/Problem: Compression fracture of T12 vertebra - Discharge Plan Home Medications: Home Meds Aspirin [Adult Low Dose Aspirin EC] 81 mg PO QPM 11/16/13 [History] Levothyroxine [Synthroid] 88 mcg PO ACBREAKFAST 11/16/13 [History] atorvaSTATin [Lipitor] 40 mg PO BEDTIME 01/13/16 [History] Acetaminophen [Tylenol Arthritis] 650 mg PO Q8HR 08/25/17 [History] Clopidogrel [Plavix] 75 mg PO DAILY 08/25/17 [History] Furosemide [Lasix] 20 mg PO DAILY 08/25/17 [History] Metoprolol Tartrate [Lopressor] 25 mg PO DAILY 08/25/17 [History] Multivitamin [Men's Multi-Vitamin] 1 each PO 1200 08/25/17 [History] Tamsulosin [Flomax] 0.4 mg PO DAILY@1200 08/25/17 [History] Ubidecarenone [Co Q-10] 200 mg PO 1200 08/25/17 [History] Albuterol [Ventolin HFA] 2 inhalation INH Q4H PRN inhaler 09/23/18 [Rx] Albuterol/Ipratropium [DuoNeb 3.0-0.5 MG/3 ML] 3 ml NEB Q4H PRN neb 10/20/18 [ Rx] Omeprazole 40 mg PO ACBREAKFAST cap.cr 10/20/18 [Rx] Calcitonin ([place]) [Miacalcin Nasal [place]] 1 spray NS DAILY 12/20/18 [History] Cyclobenzaprine HCl 10 mg PO BEDTIME 12/20/18 [History] Lidocaine 5% [Lidoderm 5%] 1 patch TOP DAILY 12/20/18 [History] Morphine Sulfate 1 mg PO Q2H PRN 12/20/18 [History] Polyethylene Glycol 3350 [MiraLAX] 17 gm PO BID 12/20/18 [History] fentaNYL [Duragesic] 12 mcg TD Q72H 12/20/18 [History] - Discharge Summary/Plan Comment DC Time >30 min.: Yes Discharge Summary/Plan Comment: Discussed discharge instructions, PT/OT and further care as needed. Patient will try his best at home and f/u in clinic as routine. Patient will be discharged on Fentanyl 12mcg patch and hydrocodone prn. F/u in clinic as scheduled. - Patient Data Vitals - Most Recent: Last Vital Signs Temp 36.4 C 12/21/18 19:50 Pulse 96 12/22/18 10:13 Resp 18 12/21/18 19:50 BP 157/99 H 12/22/18 10:13 Pulse Ox 96 12/21/18 19:50 Weight - Most Recent: 64.495 kg I&O - Last 24 hours: Intake & Output 12/21/18 12/22/18 12/22/18 22:59 06:59 14:59 Intake Total 600 Balance 600 Med Orders - Current: Current Medications Acetaminophen (Tylenol Arthritis Pain) 650 mg PO Q8HR [facility] Last Admin: 12/22/18 06:26 Dose: 650 mg Albuterol (Ventolin Hfa) 0 gm INH Q4H PRN PRN Reason: Congestion Albuterol/Ipratropium (Duoneb 3.0-0.5 Mg/3 Ml) 3 ml NEB Q4H PRN PRN Reason: wheezing Aspirin (Halfprin) 81 mg PO QPM [facility] Last Admin: 12/21/18 19:46 Dose: 81 mg Atorvastatin Calcium (Lipitor) 40 mg PO BEDTIME [facility] Last Admin: 12/21/18 19:46 Dose: 40 mg Calcitonin [place] (Miacalcin Nasal [place]) 0 ml KARO DAILY [facility] Last Admin: 12/22/18 10:15 Dose: 1 spray Clopidogrel Bisulfate (Plavix) 75 mg PO DAILY [facility] Last Admin: 12/22/18 10:14 Dose: 75 mg Cyclobenzaprine HCl (Flexeril) 10 mg PO BEDTIME [facility] Last Admin: 12/21/18 19:46 Dose: 10 mg Fentanyl (Duragesic) 12 mcg TRDERM Q72H [facility] Last Admin: 12/21/18 08:00 Dose: 12 mcg Furosemide (Lasix) 20 mg PO DAILY [facility] Last Admin: 12/22/18 10:14 Dose: 20 mg Levothyroxine Sodium (Synthroid) 88 mcg PO ACBREAKFAST [facility] Last Admin: 12/22/18 06:26 Dose: 88 mcg Lidocaine (Lidoderm 5%) 700 mg TOP DAILY [facility] Last Admin: 12/22/18 10:14 Dose: 700 mg Metoprolol Tartrate (Lopressor) 25 mg PO DAILY [facility] Last Admin: 12/22/18 10:13 Dose: 25 mg Miscellaneous Information (Remove Patch) 1 ea TRDERM DAILY@1999 [facility] Last Admin: 12/21/18 19:47 Dose: 1 ea Morphine Sulfate (Morphine 10 Mg/5 Ml) 1 mg PO Q2H PRN PRN Reason: PAIN Multivitamins/Minerals (Thera M Plus) 1 tab PO DAILY@1200 [facility] Last Admin: 12/21/18 12:22 Dose: 1 tab Non-Formulary Medication (Ubidecarenone [Co Q-10]) 200 mg PO 1200 [facility] Omeprazole (Omeprazole) 40 mg PO ACBREAKFAST [facility] Last Admin: 12/22/18 06:27 Dose: 40 mg Polyethylene Glycol (Miralax) 17 gm PO BID [facility] Last Admin: 12/22/18 10:15 Dose: 17 gm Tamsulosin HCl (Flomax) 0.4 mg PO DAILY@1200 [facility] Last Admin: 12/21/18 12:22 Dose: 0.4 mg Discontinued Medications Tuberculin PPD (Aplisol) 5 unit IDERM ONETIME ONE Stop: 12/20/18 14:34
[2018-12-22] MEDS: fentaNYL 12 MCG/HR Transdermal Patch TRDERM SCH (14:07)
== END 2018-12-22 14:15 | disposition home or self-care (01) | DRG 948 ==
LOC: UNDOADMIN 12:26 → LB.MS 12:26
PROVIDERS: ADMIT Family Medicine; ATTEND Family Medicine
DX: R53.1 Weakness (principal); S22.080A Wedge compression fracture of T11-T12 vertebra, initial encounter for closed fracture; R53.81 Other malaise; H54.7 Unspecified visual loss; I25.10 Atherosclerotic heart disease of native coronary artery without angina pectoris; E78.00 Pure hypercholesterolemia, unspecified; I10 Essential (primary) hypertension; N40.0 Benign prostatic hyperplasia without lower urinary tract symptoms; K59.09 Other constipation; E03.9 Hypothyroidism, unspecified; E11.9 Type 2 diabetes mellitus without complications; M62.830 Muscle spasm of back; M54.6 Pain in thoracic spine; X58.XXXA Exposure to other specified factors, initial encounter; I25.2 Old myocardial infarction; Z86.73 Personal history of transient ischemic attack (TIA), and cerebral infarction without residual deficits; Z79.02 Long term (current) use of antithrombotics/antiplatelets; Z79.82 Long term (current) use of aspirin; Z95.1 Presence of aortocoronary bypass graft; Z87.01 Personal history of pneumonia (recurrent); Z95.5 Presence of coronary angioplasty implant and graft; Z79.890 Hormone replacement therapy
CPT/HCPCS: 97110-GP; 97530-GP; A9270-GY

== ENCOUNTER 2019-05-05 00:28 | Inpatient (IN) | payer MEDICARE ==
[2019-05-05] MEDS ORDERED: Azithromycin 500 MG Vial ONE (03:10)
[2019-05-05] MEDS ORDERED: Albuterol/Ipratropium 3.0-0.5 MG/3 ML Neb Soln ONE (03:10)
[2019-05-05] MEDS: Albuterol/Ipratropium 3.0-0.5 MG/3 ML Neb Soln NEB SCH ×6 (03:13→23:10)
[2019-05-05] MEDS ORDERED: Azithromycin 500 MG AdvVial IV SCH (03:15)
[2019-05-05] MEDS ORDERED: Azithromycin 500 MG in Sodium Chloride 0.9% 250 ML IV SCH (03:30)
[2019-05-05] MEDS ORDERED: Polyethylene Glycol 3350 Powder 17 GM Packet PO PRN (03:37)
[2019-05-05] MEDS: cefTRIAXone 1 GM Vial ONE ×2 (03:48→03:51)
[2019-05-05] MEDS: cefTRIAXone 1 GM in Sodium Chloride 0.9% 50 ML IV SCH (03:51)
[2019-05-05] MEDS: Dextrose 5%-0.9% NaCl 1,000 ML IV SCH ×2 (04:14→18:00)
[2019-05-05] MEDS: Azithromycin 500 MG in Sodium Chloride 0.9% 250 ML IV SCH (04:16)
[2019-05-05] MEDS ORDERED: Omeprazole 20 MG Cap.CR PO SCH (07:00)
[2019-05-05] MEDS ORDERED: Levothyroxine 88 MCG Tab ONE (07:57)
[2019-05-05] MEDS: Levothyroxine 50 MCG Tab PO SCH (08:05)
[2019-05-05] MEDS: Metoprolol Tartrate 25 MG Tab PO SCH ×2 (08:05→19:25)
[2019-05-05] MEDS: Furosemide 20 MG Tab PO SCH (08:05)
[2019-05-05] MEDS: Clopidogrel 75 MG Tab PO SCH (08:05)
[2019-05-05] MEDS: Pantoprazole 40 MG Tab.CR PO SCH (08:05)
[2019-05-05] MEDS: Acetaminophen 650 MG Tab.ER PO SCH ×3 (08:16→23:11)
--- NOTE | 2019-05-05 09:08 | HP ---
REASON FOR ADMISSION: Pneumonia. HISTORY: This 88-year-old man was brought in by ambulance this evening for increasing cough that has been increasingly productive. Along with this, he has had some shortness of breath particularly with coughing paroxysms. He is accompanied by his and son. He has had a problem with chronic cough that goes back several months, and in fact, he was hospitalized for pneumonia last September. At that time, his clinical presentation was similar to this. They do not know whether he has had a fever or not. His thinks, perhaps he has. He has not had any myalgias or sore throat or any significant upper respiratory problems. He has not had any GI difficulties or urinary problems except for some incontinence. It is thought that he has CLL, but I do not know if he has actually ever had this worked up by an oncologist. He does have chronically elevated white count and lymphocytes. PAST MEDICAL HISTORY: Significant for: 1. Coronary artery disease. 2. History of cerebellar CVA. 3. History of pneumonia. 4. CLL. 5. Hypertension. 6. Chronic back pain with history of T12 compression fracture. MEDICATIONS: Reviewed. Please see electronic medical record. They include the following: Metoprolol, fentanyl (Duragesic patch), Atorvastatin, CoQ10, tamsulosin, polyethylene glycol p.r.n., omeprazole, vitamins, Lidoderm patch p.r.n., Synthroid, Lasix, clopidogrel, aspirin, albuterol inhaler, q.4 hours p.r.n., and acetaminophen as needed. ALLERGIES: NONE TO MEDICATIONS. FAMILY HISTORY: Noncontributory. REVIEW OF SYSTEMS: Pertinent positives and negatives as listed in the HPI. PHYSICAL EXAMINATION: GENERAL: He is reasonably alert and answers questions appropriately. He is alert and oriented x3. VITAL SIGNS: He is afebrile. Heart rate 75, blood pressure 130/68, respirations 20, O2 saturation 94% on room air. HEENT: No conjunctivitis is noted. Oropharynx appears somewhat dry. No pharyngeal erythema is noted. He is edentulous. NECK: Supple. No JVD. No adenopathy. CHEST: He has diffuse rhonchi, but breath sounds are equal bilaterally. CARDIAC: Regular rate without murmur. ABDOMEN: Soft and nontender. EXTREMITIES: Warm and pink with some mild ankle edema bilaterally. NEUROLOGIC: He has no facial asymmetry. He answers questions appropriately. Moves all 4 extremities. Sensation is intact. LABORATORY DATA: His white blood count is elevated at 28,800. His hemoglobin is 11.7. Nasal swab was done for influenza A and B, and this was negative. Chest x-ray does show what may be bilateral infiltrates at the bases, but it is difficult to interpret because I think he has a lot of residual scarring. CMP results are pending. IMPRESSION: Pneumonia, community-acquired. PLAN: He will be admitted and given DuoNeb treatments every 4 hours. We will send a sputum sample if we can get one. I will start him on Rocephin 1 g IV daily and azithromycin 500 mg IV daily. He does have an advance directive, which indicates DNR/DNI. Those wishes will be honored. All this was explained to the patient and his family. They understand and agree and all questions were answered. AMELIA
[2019-05-05] MEDS: fentaNYL 12 MCG/HR Transdermal Patch TOP SCH (09:39)
[2019-05-05] MEDS: Lidocaine 5% 700 MG Patch TOP SCH ×2 (09:55→12:00)
[2019-05-05] MEDS ORDERED: Non-Formulary Medication 1 Each (Ubidecarenone [Co Q-10] 200 MG) PO SCH (12:00)
[2019-05-05] MEDS ORDERED: Non-Formulary Medication 1 Each (Multivitamin [Men's Multi-Vitamin] 1 EACH) PO SCH (12:00)
[2019-05-05] MEDS: Tamsulosin 0.4 MG Cap.ER PO SCH (12:42)
[2019-05-05] MEDS: Multivitamins with Iron/Calcium/Folic Acid/Minerals Tab PO SCH (12:42)
[2019-05-05] MEDS: atorvaSTATin 40 MG Tab PO SCH (19:24)
[2019-05-05] MEDS: Aspirin 81 MG Tab.EC PO SCH (19:25)
[2019-05-06] MEDS: Azithromycin 500 MG in Sodium Chloride 0.9% 250 ML IV SCH (02:41)
[2019-05-06] MEDS: Albuterol/Ipratropium 3.0-0.5 MG/3 ML Neb Soln NEB SCH ×5 (04:13→19:09)
[2019-05-06] MEDS ORDERED: cefTRIAXone 1 GM Vial ONE (04:39)
[2019-05-06] MEDS: cefTRIAXone 1 GM in Sodium Chloride 0.9% 50 ML IV SCH (04:53)
[2019-05-06] MEDS ORDERED: Levothyroxine 88 MCG Tab ONE (06:06)
[2019-05-06] MEDS: Acetaminophen 650 MG Tab.ER PO SCH ×2 (06:10→13:24)
[2019-05-06] MEDS: Pantoprazole 40 MG Tab.CR PO SCH (06:10)
[2019-05-06] MEDS: Metoprolol Tartrate 25 MG Tab PO SCH ×2 (06:11→19:07)
[2019-05-06] MEDS: Levothyroxine 50 MCG Tab PO SCH (06:11)
[2019-05-06] MEDS: Furosemide 20 MG Tab PO SCH (08:00)
[2019-05-06] MEDS: Lidocaine 5% 700 MG Patch TOP SCH (08:01)
[2019-05-06] MEDS: Clopidogrel 75 MG Tab PO SCH (08:01)
[2019-05-06] MEDS: Dextrose 5%-0.9% NaCl 1,000 ML IV SCH ×2 (08:21→21:29)
--- NOTE | 2019-05-06 11:24 | PN ---
DATE OF VISIT: 05/06/2019 SUBJECTIVE: Fabiano remains afebrile and overall feels well. His coughing remains quite productive and his main complaint at this time is that his back pain is worse probably because he is immobilized more. He is on a fentanyl patch and that was replaced yesterday. PHYSICAL EXAMINATION: GENERAL: He is afebrile. CHEST: He has scattered rhonchi, still on examination of his chest. CARDIAC: Regular rate without murmur. IMPRESSION: Pneumonia, stable. He is receiving his DuoNeb treatments still and he is on both Rocephin and azithromycin. I will continue that. I do not expect him to get better very rapidly. He is aware that I will be leaving tomorrow and he will be left in the care of another provider in my absence. MAELIA /[id number] MTDD
[2019-05-06] MEDS: Tamsulosin 0.4 MG Cap.ER PO SCH (11:57)
[2019-05-06] MEDS: Multivitamins with Iron/Calcium/Folic Acid/Minerals Tab PO SCH (11:57)
--- NOTE | 2019-05-06 15:30 | CR ---
DATE OF SERVICE: 05/05/19 CLINICAL DATA: r/o pneumonia AP PORTABLE CHEST: Comparison is made to a prior exam dated 11.14.18. The patient is status post median sternotomy. The heart size is normal. The patient has taken a poor inspiration. The pulmonary vasculature appears more prominent than on the prior exam suggesting pulmonary venous congestion. There are mild interstitial changes throughout both lungs. Congestive failure and interstitial edema should be considered. No pneumothorax. No pleural effusions. No other significant findings. [id number] MTDD
[2019-05-06] MEDS: atorvaSTATin 40 MG Tab PO SCH (19:08)
[2019-05-06] MEDS: Aspirin 81 MG Tab.EC PO SCH (19:09)
[2019-05-06] MEDS ORDERED: Ketorolac 30 MG/ML SDV IVPUSH ONE ×3 (21:40→21:55)
[2019-05-06] MEDS ORDERED: Furosemide 20 MG/2 ML VIAL IVPUSH ONE (21:40)
[2019-05-07] MEDS: Acetaminophen 650 MG Tab.ER PO SCH ×4 (00:05→23:39)
[2019-05-07] MEDS: Albuterol/Ipratropium 3.0-0.5 MG/3 ML Neb Soln NEB SCH ×7 (02:08→23:39)
[2019-05-07] MEDS: Azithromycin 500 MG in Sodium Chloride 0.9% 250 ML IV SCH (03:16)
[2019-05-07] MEDS: cefTRIAXone 1 GM in Sodium Chloride 0.9% 50 ML IV SCH (04:28)
[2019-05-07] MEDS ORDERED: Levothyroxine 88 MCG Tab ONE (05:50)
[2019-05-07] MEDS: Pantoprazole 40 MG Tab.CR PO SCH (06:08)
[2019-05-07] MEDS: Levothyroxine 50 MCG Tab PO SCH (06:08)
[2019-05-07] MEDS: Metoprolol Tartrate 25 MG Tab PO SCH ×2 (06:09→20:22)
[2019-05-07] MEDS: Furosemide 20 MG Tab PO SCH (07:51)
[2019-05-07] MEDS: Clopidogrel 75 MG Tab PO SCH (07:51)
[2019-05-07] MEDS: Lidocaine 5% 700 MG Patch TOP SCH (07:52)
[2019-05-07] MEDS ORDERED: Azithromycin 500 MG in Sodium Chloride 0.9% 250 ML IV SCH (09:39)
[2019-05-07] MEDS ORDERED: cefTRIAXone 1 GM in Sodium Chloride 0.9% 50 ML IV SCH (10:00)
[2019-05-07] MEDS: Multivitamins with Iron/Calcium/Folic Acid/Minerals Tab PO SCH (11:07)
[2019-05-07] MEDS: Tamsulosin 0.4 MG Cap.ER PO SCH (11:07)
--- NOTE | 2019-05-07 11:10 | PN ---
DATE OF VISIT: 05/07/2019 SUBJECTIVE: Overall, Fabiano seems to be better than yesterday. He continues to cough productively. Last night, he had some increased back pain even though he is on a fentanyl patch. His blood pressure was up as well and the nurses thought that he was showing some signs of peripheral edema. He was given 20 mg of Lasix IV and 30 mg of Toradol this morning, and he is feeling better. His blood pressure is 150/71. He is afebrile. His O2 sats at 94%. OBJECTIVE: GENERAL: He is more talkative and even a bit jocular. LUNGS: His chest is improved, although he does have a few scattered rhonchi. It is much better sounding than the previous 2 days. EXTREMITIES: I do not detect any significant edema on physical exam today. He no longer has any maintenance IV fluids running because of his improved oral intake. IMPRESSION: Pneumonia. PLAN: I have a feeling that much of his pulmonary status is going to be a chronic thing and his x-ray shows more of a pulmonary vascular congestion type pattern than any discrete infiltrates, but clinically it appeared that he had pneumonia and he is somewhat better on IV antibiotics. I will be leaving today and will leave him under the care of Jennie Lopez or Dr. Guzman depending on who is covering the hospital. The patient is aware this. We will make no changes in his management at this time. AMELIA /[id number] MARLA
[2019-05-07] MEDS: BERBERINE PO SCH (17:00)
[2019-05-07] MEDS: Aspirin 81 MG Tab.EC PO SCH (20:22)
[2019-05-07] MEDS: atorvaSTATin 40 MG Tab PO SCH (20:23)
[2019-05-08] MEDS: Albuterol/Ipratropium 3.0-0.5 MG/3 ML Neb Soln NEB SCH ×5 (03:14→19:19)
[2019-05-08] MEDS: Azithromycin 500 MG in Sodium Chloride 0.9% 250 ML IV SCH (03:14)
[2019-05-08] MEDS: cefTRIAXone 1 GM in Sodium Chloride 0.9% 50 ML IV SCH (04:25)
[2019-05-08] MEDS ORDERED: Levothyroxine 88 MCG Tab ONE (06:08)
[2019-05-08] MEDS: Acetaminophen 650 MG Tab.ER PO SCH ×2 (06:10→14:00)
[2019-05-08] MEDS: Pantoprazole 40 MG Tab.CR PO SCH (06:10)
[2019-05-08] MEDS: BERBERINE PO SCH ×3 (06:14→17:05)
[2019-05-08] MEDS: Levothyroxine 50 MCG Tab PO SCH (06:14)
[2019-05-08] MEDS: Metoprolol Tartrate 25 MG Tab PO SCH ×2 (06:14→19:18)
[2019-05-08] MEDS: Lidocaine 5% 700 MG Patch TOP SCH (08:20)
[2019-05-08] MEDS: Furosemide 20 MG Tab PO SCH (08:21)
[2019-05-08] MEDS: Clopidogrel 75 MG Tab PO SCH (08:21)
[2019-05-08] MEDS: fentaNYL 12 MCG/HR Transdermal Patch TOP SCH (08:22)
[2019-05-08] MEDS: Multivitamins with Iron/Calcium/Folic Acid/Minerals Tab PO SCH (11:40)
[2019-05-08] MEDS: Tamsulosin 0.4 MG Cap.ER PO SCH (11:40)
[2019-05-08] MEDS ORDERED: Furosemide 20 MG/2 ML VIAL IVPUSH ONE (11:57)
[2019-05-08] MEDS ORDERED: Lisinopril 5 MG Tab ONE (12:04)
[2019-05-08] MEDS ORDERED: Furosemide 20 MG/2 ML VIAL ONE (12:04)
[2019-05-08] MEDS: Lisinopril 5 MG Tab PO SCH (12:14)
--- NOTE | 2019-05-08 17:07 | PCM.PN ---
- General Info Date of Service: 05/08/19 Admission Dx/Problem (Free Text): pneumonia/COPD exacerbation Subjective Update: Pt has been feeling short of breath today and OT states pt had difficulty with swallowing today at breakfast. - Review of Systems General: Denies: Fever, Chills HEENT: Reports: No Symptoms Pulmonary: Reports: Shortness of Breath, Cough, Sputum Cardiovascular: Reports: Dyspnea on Exertion. Denies: Chest Pain, Edema Gastrointestinal: Reports: Difficulty Swallowing. Denies: Abdominal Pain, Constipation, Diarrhea Genitourinary: Reports: Frequency Musculoskeletal: Reports: No Symptoms Skin: Reports: No Symptoms Neurological: Reports: No Symptoms Psychiatric: Reports: No Symptoms - Patient Data Vitals - Most Recent: Last Vital Signs Temp 97.6 F 05/08/19 16:00 Pulse 104 H 05/08/19 16:00 Resp 24 H 05/08/19 16:00 BP 180/80 H 05/08/19 16:00 Pulse Ox 92 L 05/08/19 16:00 I&O - Last 24 Hours: Intake & Output 05/08/19 05/08/19 05/08/19 06:59 14:59 22:59 Intake Total 300 Balance 300 Lab Results Last 24 Hours: Laboratory Results - last 24 hr 05/08/19 05/08/19 05/08/19 Range/Units 07:05 07:05 07:05 WBC 22.8 H* D (4.0-11.0) K/uL RBC 3.56 L (4.50-6.50) M/uL Hgb 11.3 L (13.0-18.0) g/dL Hct 33.4 L (40.0-54.0) % MCV 94 (76-96) fL MCH 31.7 (27.0-32.0) pg MCHC 33.8 (31.0-35.0) g/dL RDW 13.2 (11.0-16.0) % Plt Count 318 (150-400) K/uL MPV 10.6 H (6.0-10.0) fL Neut % (Auto) 42.9 L (45.0-70.0) % Lymph % (Auto) 43.2 H (20.0-40.0) % [place] % (Auto) 8.9 (3.0-10.0) % Eos % (Auto) 4.9 (1.0-5.0) % Baso % (Auto) 0.1 (0.0-0.5) % Neut # (Auto) 9.77 H (2.00-7.50) K/uL Lymph # (Auto) 9.87 H (1.50-4.00) K/uL [place] # (Auto) 2.04 H (0.20-0.80) K/uL Eos # (Auto) 1.13 H (0.04-0.40) K/uL Baso # (Auto) 0.03 (0.02-0.10) K/uL Sodium 139 (136-145) mmol/L Potassium 4.0 (3.5-5.1) mmol/L Chloride 103 (98-107) mmol/L Carbon Dioxide 26.5 (21.0-32.0) mmol/L Anion Gap 13.5 (5.0-15.0) mmol/L BUN 12 (8-26) mg/dL Creatinine 0.57 L (0.70-1.30) mg/dL Est Cr Clr Drug Dosing 76.43 mL/min Estimated GFR (MDRD) > 60 (>60) MLS/MIN BUN/Creatinine Ratio 21.1 (6-25) Glucose 146 H (74-100) mg/dL Calcium 8.5 (8.5-10.1) mg/dL B-Natriuretic Peptide 855 H D (0-450) pg/mL Med Orders - Current: Current Medications Acetaminophen (Tylenol Arthritis Pain) 650 mg PO Q8HR [facility] Last Admin: 05/08/19 06:10 Dose: 650 mg Albuterol/Ipratropium (Duoneb 3.0-0.5 Mg/3 Ml) 3 ml NEB Q4H [facility] Last Admin: 05/08/19 15:15 Dose: 3 ml Aspirin (Halfprin) 81 mg PO QPM [facility] Last Admin: 05/07/19 20:22 Dose: 81 mg Atorvastatin Calcium (Lipitor) 40 mg PO BEDTIME [facility] Last Admin: 05/07/19 20:23 Dose: 40 mg Clopidogrel Bisulfate (Plavix) 75 mg PO DAILY [facility] Last Admin: 05/08/19 08:21 Dose: 75 mg Fentanyl (Duragesic) 12 mcg TOP Q72H [facility] Last Admin: 05/08/19 08:22 Dose: 12 mcg Furosemide (Lasix) 20 mg PO DAILY [facility] Last Admin: 05/08/19 08:21 Dose: 20 mg Azithromycin 500 mg/ Sodium (Chloride) 250 mls @ 250 mls/hr IV Q24H [facility] Last Admin: 05/08/19 03:14 Dose: 250 mls/hr Ceftriaxone Sodium 1 gm/ (Sodium Chloride) 50 mls @ 100 mls/hr IV Q24H [facility] Last Admin: 05/08/19 04:25 Dose: 100 mls/hr Levothyroxine Sodium (Synthroid) 88 mcg PO ACBREAKFAST [facility] Last Admin: 05/08/19 06:14 Dose: 88 mcg Lidocaine (Lidoderm 5%) 700 mg TOP DAILY [facility] Last Admin: 05/08/19 08:20 Dose: 700 mg Lisinopril (Prinivil) 5 mg PO DAILY [facility] Last Admin: 05/08/19 12:14 Dose: 5 mg Metoprolol Tartrate (Lopressor) 25 mg PO BIDAC [facility] Last Admin: 05/08/19 06:14 Dose: 25 mg Miscellaneous Information (Remove Patch) 1 ea TRDERM DAILY@1999 [facility] Last Admin: 05/07/19 23:39 Dose: 1 ea Multivitamins/Minerals (Thera M Plus) 1 tab PO DAILY@1200 [facility] Last Admin: 05/08/19 11:40 Dose: 1 tab Non-Formulary Medication (Ubidecarenone [Co Q-10]) 200 mg PO 1200 [facility] Berberine Glucogold 1 each PO TIDAC [facility] Last Admin: 05/08/19 11:40 Dose: 1 each Pantoprazole Sodium (Protonix) 40 mg PO ACBREAKFAST [facility] Last Admin: 05/08/19 06:10 Dose: 40 mg Polyethylene Glycol (Miralax) 17 gm PO BID PRN PRN Reason: Constipation Tamsulosin HCl (Flomax) 0.4 mg PO DAILY@1200 [facility] Last Admin: 05/08/19 11:40 Dose: 0.4 mg Discontinued Medications Albuterol/Ipratropium (Duoneb 3.0-0.5 Mg/3 Ml) Confirm Administered Dose 3 ml .ROUTE .STK-MED ONE Stop: 05/05/19 03:11 Last Admin: 05/05/19 07:15 Dose: Not Given Azithromycin (Zithromax) Confirm Administered Dose 500 mg .ROUTE .[facility] ONE Stop: 05/05/19 03:11 Last Admin: 05/05/19 07:15 Dose: Not Given Ceftriaxone Sodium (Rocephin) Confirm Administered Dose 1 gm .ROUTE .[facility] ONE Stop: 05/05/19 03:30 Last Admin: 05/05/19 03:51 Dose: Not Given Ceftriaxone Sodium (Rocephin) Confirm Administered Dose 1 gm .ROUTE .[facility] ONE Stop: 05/06/19 04:40 Last Admin: 05/06/19 06:10 Dose: Not Given Furosemide (Lasix) 20 mg IVPUSH NOW ONE Stop: 05/06/19 21:41 Last Admin: 05/06/19 22:12 Dose: 20 mg Furosemide (Lasix) 20 mg IVPUSH NOW ONE Stop: 05/08/19 11:58 Last Admin: 05/08/19 12:15 Dose: 20 mg Furosemide (Lasix) Confirm Administered Dose 20 mg .ROUTE .[facility] ONE Stop: 05/08/19 12:05 Last Admin: 05/08/19 12:14 Dose: Not Given Ceftriaxone Sodium 1 gm/ (Sodium Chloride) 50 mls @ 100 mls/hr IV Q24H [facility] Last Admin: 05/07/19 04:28 Dose: 100 mls/hr Azithromycin 500 mg/ Sodium (Chloride) 250 mls @ 250 mls/hr IV Q24H [facility] Last Admin: 05/07/19 03:16 Dose: 250 mls/hr Azithromycin 500 mg/ Sodium (Chloride) 250 mls @ 250 mls/hr IV Q24H [facility] Last Admin: 05/05/19 07:16 Dose: Not Given Dextrose/Sodium Chloride (Dextrose 5%-Normal Saline) 1,000 mls @ 75 mls/hr IV ASDIRECTED [facility] Last Admin: 05/06/19 21:29 Dose: 75 mls/hr Azithromycin 500 mg/ Sodium (Chloride) 250 mls @ 250 mls/hr IV Q24H [facility] Ceftriaxone Sodium 1 gm/ (Sodium Chloride) 50 mls @ 100 mls/hr IV Q24H [facility] Ketorolac Tromethamine (Toradol) 30 mg IVPUSH ONETIME ONE Stop: 05/06/19 21:41 Last Admin: 05/06/19 22:12 Dose: 30 mg Ketorolac Tromethamine (Toradol) 30 mg IVPUSH ONETIME ONE Stop: 05/06/19 21:56 Levothyroxine Sodium (Synthroid) Confirm Administered Dose 88 mcg .ROUTE .STK- MED ONE Stop: 05/05/19 07:58 Last Admin: 05/05/19 08:15 Dose: Not Given Levothyroxine Sodium (Synthroid) Confirm Administered Dose 88 mcg .ROUTE .STK- MED ONE Stop: 05/06/19 06:07 Last Admin: 05/06/19 06:44 Dose: Not Given Levothyroxine Sodium (Synthroid) Confirm Administered Dose 88 mcg .ROUTE .STK- MED ONE Stop: 05/07/19 05:51 Last Admin: 05/07/19 07:01 Dose: Not Given Levothyroxine Sodium (Synthroid) Confirm Administered Dose 88 mcg .ROUTE .STK- MED ONE Stop: 05/08/19 06:09 Last Admin: 05/08/19 06:35 Dose: Not Given Lisinopril (Prinivil) Confirm Administered Dose 5 mg .ROUTE .STK-MED ONE Stop: 05/08/19 12:05 Last Admin: 05/08/19 12:13 Dose: Not Given Non-Formulary Medication (Multivitamin [Men's Multi-Vitamin]) 1 each PO 1200 [facility] Omeprazole (Omeprazole) 40 mg PO ACBREAKFAST [facility] - Exam Quality Assessment: No: Supplemental Oxygen, Urine Catheter, Skin Breakdown General: Alert, Oriented, Cooperative HEENT: Pupils Equal, Mucous Membr. Moist/[place] Neck: Supple, Trachea Midline, No JVD Lungs: Decreased Breath Sounds Cardiovascular: Tachycardia GI/Abdominal Exam: Normal Bowel Sounds, Soft, Non-Tender. No: Guarding, Rigid Extremities: Non-Tender, No Pedal Edema, Normal Capillary Refill, Other (boots on feet to protect from skin breakdown.) Skin: Warm, Dry Neurological: No New Focal Deficit Psy/Mental Status: Alert, Normal Affect, Normal Mood - Problem List & Annotations (1) Pneumonia SNOMED Code(s): 952062143 Code(s): J18.9 - PNEUMONIA, UNSPECIFIED ORGANISM Status: Acute Current Visit: Yes (2) CHF exacerbation SNOMED Code(s): 426469978, 11464220671029 Code(s): I50.9 - HEART FAILURE, UNSPECIFIED Status: Acute Current Visit: Yes (3) Weakness generalized SNOMED Code(s): 23359979 Code(s): R53.1 - WEAKNESS Status: Acute Priority: High Current Visit: No (4) Chronic pain SNOMED Code(s): 50175876 Code(s): G89.29 - OTHER CHRONIC PAIN Status: Acute Current Visit: Yes (5) Glucose intolerance (impaired glucose tolerance) SNOMED Code(s): 4796838 Code(s): R73.02 - IMPAIRED GLUCOSE TOLERANCE (ORAL) Status: Acute Current Visit: Yes - Problem List Review Problem List Initiated/Reviewed/Updated: Yes - My Orders Last 24 Hours: My Active Orders 05/08/19 11:54 Consult to Speech Language Pathology [[employer] Evaluation and Treatment] [CONS] Routine 05/08/19 12:00 Lisinopril [Prinivil] 5 mg PO DAILY - Plan Plan:: pneumonia/COPD exacerbation and elevated BNP/pulmonary congestion per x-ray Shortness of breath, purulent sputum and difficulty swallowing: Speech consult to evaluate swallowing Lasix 20 mg IV X 1 today. Lisinopril 5 mg PO daily. Continue with Azithromycin and Rocephin IV daily. PT/OT evaluation for strengthening
[2019-05-08] MEDS ORDERED: Ketorolac 30 MG/ML SDV IVPUSH ONE (19:01)
[2019-05-08] MEDS ORDERED: Ketorolac 30 MG/ML SDV ONE (19:09)
[2019-05-08] MEDS: Aspirin 81 MG Tab.EC PO SCH (19:18)
[2019-05-08] MEDS: atorvaSTATin 40 MG Tab PO SCH (19:18)
[2019-05-09] MEDS: Albuterol/Ipratropium 3.0-0.5 MG/3 ML Neb Soln NEB SCH ×3 (03:30→07:54)
[2019-05-09] MEDS: Azithromycin 500 MG in Sodium Chloride 0.9% 250 ML IV SCH (03:55)
[2019-05-09] MEDS: Acetaminophen 650 MG Tab.ER PO SCH ×4 (04:04→21:34)
[2019-05-09] MEDS: cefTRIAXone 1 GM in Sodium Chloride 0.9% 50 ML IV SCH (04:10)
[2019-05-09] MEDS: Lidocaine 5% 700 MG Patch TOP SCH (07:53)
[2019-05-09] MEDS: Metoprolol Tartrate 25 MG Tab PO SCH ×2 (07:54→19:54)
[2019-05-09] MEDS: Pantoprazole 40 MG Tab.CR PO SCH (07:54)
[2019-05-09] MEDS: Lisinopril 5 MG Tab PO SCH (07:54)
[2019-05-09] MEDS: Clopidogrel 75 MG Tab PO SCH (07:54)
[2019-05-09] MEDS: BERBERINE PO SCH ×3 (07:54→17:08)
[2019-05-09] MEDS: Furosemide 20 MG Tab PO SCH (07:54)
[2019-05-09] MEDS: Levothyroxine 50 MCG Tab PO SCH (08:00)
[2019-05-09] MEDS ORDERED: Furosemide 20 MG/2 ML VIAL IVPUSH ONE (08:58)
[2019-05-09] MEDS ORDERED: methylPREDNISolone Sodium Succinate 125 MG/2 ML SDV IM ONE (08:59)
[2019-05-09] MEDS: Multivitamins with Iron/Calcium/Folic Acid/Minerals Tab PO SCH (11:38)
[2019-05-09] MEDS: Levalbuterol HCl 1.25 MG/0.5 ML Neb NEB SCH ×2 (11:38→18:43)
[2019-05-09] MEDS: guaiFENesin 100 MG/5 ML Soln 10 ML UD Cup PO PRN ×2 (11:38→19:54)
[2019-05-09] MEDS: Tamsulosin 0.4 MG Cap.ER PO SCH (11:38)
--- NOTE | 2019-05-09 11:45 | CR ---
DATE OF SERVICE: 05/09/19 CLINICAL DATA: shortness of breath, pulmonary congestion AP PORTABLE CHEST: Comparison is made to a prior exam dated 05/05/19. The patient has taken a poor inspiration. The patient is status post median sternotomy. The heart size is normal. There are persistent subtle densities in both lung bases consistent with basilar atelectasis or infiltrate. No areas of consolidation. No pneumothorax. No pleural effusions. [id number] MTDD
[2019-05-09] MEDS: Tiotropium Inhaler 18 MCG Inhalation Powder Cap Kit of 5 INH SCH (18:43)
[2019-05-09] MEDS: atorvaSTATin 40 MG Tab PO SCH (19:54)
[2019-05-09] MEDS: Aspirin 81 MG Tab.EC PO SCH (19:54)
--- NOTE | 2019-05-09 20:42 | PCM.PN ---
- General Info Date of Service: 05/09/19 Admission Dx/Problem (Free Text): pneumonia/COPD exacerbation Subjective Update: Pt states he slept well last night and offers no concerns. He is sitting in chair and is dressed with assist of staff. Short of breath this am and improved after nebulizer. Staff report tachypnea with Duoneb for pt. Continues with thick, purulent sputum. - Review of Systems General: Reports: Weakness. Denies: Fever, Chills HEENT: Reports: No Symptoms Pulmonary: Reports: Cough, Sputum. Denies: Wheezing Cardiovascular: Reports: Dyspnea on Exertion. Denies: Chest Pain, Palpitations , Edema Gastrointestinal: Reports: No Symptoms Genitourinary: Reports: Incontinence Musculoskeletal: Reports: No Symptoms Skin: Reports: No Symptoms Neurological: Reports: No Symptoms Psychiatric: Reports: No Symptoms - Patient Data Vitals - Most Recent: Last Vital Signs Temp 97.8 F 05/09/19 13:00 Pulse 104 H 05/09/19 19:54 Resp 22 H 05/09/19 08:00 BP 130/70 05/09/19 19:54 Pulse Ox 95 05/09/19 17:00 Weight - Most Recent: 135 lb 9.595 oz I&O - Last 24 Hours: Intake & Output 05/09/19 05/09/19 05/09/19 06:59 14:59 22:59 Intake Total 350 Balance 350 Lab Results Last 24 Hours: Laboratory Results - last 24 hr 05/09/19 Range/Units 08:50 POC Glucose 149 H (74-110) mg/dL Med Orders - Current: Current Medications Acetaminophen (Tylenol Arthritis Pain) 650 mg PO Q8HR [facility] Last Admin: 05/09/19 13:35 Dose: 650 mg Aspirin (Halfprin) 81 mg PO QPM [facility] Last Admin: 05/09/19 19:54 Dose: 81 mg Atorvastatin Calcium (Lipitor) 40 mg PO BEDTIME [facility] Last Admin: 05/09/19 19:54 Dose: 40 mg Clopidogrel Bisulfate (Plavix) 75 mg PO DAILY [facility] Last Admin: 05/09/19 07:54 Dose: 75 mg Fentanyl (Duragesic) 12 mcg TOP Q72H [facility] Last Admin: 05/08/19 08:22 Dose: 12 mcg Furosemide (Lasix) 20 mg PO DAILY [facility] Last Admin: 05/09/19 07:54 Dose: 20 mg Guaifenesin (Robitussin) 200 mg PO Q4H PRN PRN Reason: Congestion Last Admin: 05/09/19 19:54 Dose: 200 mg Azithromycin 500 mg/ Sodium (Chloride) 250 mls @ 250 mls/hr IV Q24H [facility] Last Admin: 05/09/19 03:55 Dose: 250 mls/hr Ceftriaxone Sodium 1 gm/ (Sodium Chloride) 50 mls @ 100 mls/hr IV Q24H [facility] Last Admin: 05/09/19 04:10 Dose: 100 mls/hr Levalbuterol HCl (Xopenex) 1.25 mg NEB Q6HR [facility] Last Admin: 05/09/19 18:43 Dose: 1.25 mg Levothyroxine Sodium (Synthroid) 88 mcg PO ACBREAKFAST [facility] Last Admin: 05/09/19 08:00 Dose: 88 mcg Lidocaine (Lidoderm 5%) 700 mg TOP DAILY [facility] Last Admin: 05/09/19 07:53 Dose: 700 mg Lisinopril (Prinivil) 5 mg PO DAILY [facility] Last Admin: 05/09/19 07:54 Dose: 5 mg Metoprolol Tartrate (Lopressor) 25 mg PO BIDAC [facility] Last Admin: 05/09/19 19:54 Dose: 25 mg Miscellaneous Information (Remove Patch) 1 ea TRDERM DAILY@2000 [facility] Last Admin: 05/09/19 05:05 Dose: 1 ea Multivitamins/Minerals (Thera M Plus) 1 tab PO DAILY@1200 [facility] Last Admin: 05/09/19 11:38 Dose: 1 tab Non-Formulary Medication (Ubidecarenone [Co Q-10]) 200 mg PO 1200 [facility] Berberine Glucogold 1 each PO TIDAC [facility] Last Admin: 05/09/19 17:08 Dose: 1 each Pantoprazole Sodium (Protonix) 40 mg PO ACBREAKFAST [facility] Last Admin: 05/09/19 07:54 Dose: 40 mg Polyethylene Glycol (Miralax) 17 gm PO BID PRN PRN Reason: Constipation Tamsulosin HCl (Flomax) 0.4 mg PO DAILY@1200 [facility] Last Admin: 05/09/19 11:38 Dose: 0.4 mg Tiotropium [place] (Spiriva Handihaler) 18 mcg INH DAILY [facility] Last Admin: 05/09/19 18:43 Dose: 18 mcg Discontinued Medications Albuterol/Ipratropium (Duoneb 3.0-0.5 Mg/3 Ml) 3 ml NEB Q4H [facility] Last Admin: 05/09/19 07:54 Dose: 3 ml Albuterol/Ipratropium (Duoneb 3.0-0.5 Mg/3 Ml) Confirm Administered Dose 3 ml .ROUTE .STK-MED ONE Stop: 05/05/19 03:11 Last Admin: 05/05/19 07:15 Dose: Not Given Azithromycin (Zithromax) Confirm Administered Dose 500 mg .ROUTE .STK-MED ONE Stop: 05/05/19 03:11 Last Admin: 05/05/19 07:15 Dose: Not Given Ceftriaxone Sodium (Rocephin) Confirm Administered Dose 1 gm .ROUTE .STK-MED ONE Stop: 05/05/19 03:30 Last Admin: 05/05/19 03:51 Dose: Not Given Ceftriaxone Sodium (Rocephin) Confirm Administered Dose 1 gm .ROUTE .K-MED ONE Stop: 05/06/19 04:40 Last Admin: 05/06/19 06:10 Dose: Not Given Furosemide (Lasix) 20 mg IVPUSH NOW ONE Stop: 05/06/19 21:41 Last Admin: 05/06/19 22:12 Dose: 20 mg Furosemide (Lasix) 20 mg IVPUSH NOW ONE Stop: 05/08/19 11:58 Last Admin: 05/08/19 12:15 Dose: 20 mg Furosemide (Lasix) Confirm Administered Dose 20 mg .ROUTE .STK-MED ONE Stop: 05/08/19 12:05 Last Admin: 05/08/19 12:14 Dose: Not Given Furosemide (Lasix) 20 mg IVPUSH NOW ONE Stop: 05/09/19 08:59 Last Admin: 05/09/19 10:09 Dose: 20 mg Ceftriaxone Sodium 1 gm/ (Sodium Chloride) 50 mls @ 100 mls/hr IV Q24H [facility] Last Admin: 05/07/19 04:28 Dose: 100 mls/hr Azithromycin 500 mg/ Sodium (Chloride) 250 mls @ 250 mls/hr IV Q24H [facility] Last Admin: 05/07/19 03:16 Dose: 250 mls/hr Azithromycin 500 mg/ Sodium (Chloride) 250 mls @ 250 mls/hr IV Q24H [facility] Last Admin: 05/05/19 07:16 Dose: Not Given Dextrose/Sodium Chloride (Dextrose 5%-Normal Saline) 1,000 mls @ 75 mls/hr IV ASDIRECTED [facility] Last Admin: 05/06/19 21:29 Dose: 75 mls/hr Azithromycin 500 mg/ Sodium (Chloride) 250 mls @ 250 mls/hr IV Q24H [facility] Ceftriaxone Sodium 1 gm/ (Sodium Chloride) 50 mls @ 100 mls/hr IV Q24H [facility] Ketorolac Tromethamine (Toradol) 30 mg IVPUSH ONETIME ONE Stop: 05/06/19 21:41 Last Admin: 05/06/19 22:12 Dose: 30 mg Ketorolac Tromethamine (Toradol) 30 mg IVPUSH ONETIME ONE Stop: 05/06/19 21:56 Ketorolac Tromethamine (Toradol) 15 mg IVPUSH ONETIME ONE Stop: 05/08/19 19:02 Last Admin: 05/08/19 19:21 Dose: 15 mg Ketorolac Tromethamine (Toradol) Confirm Administered Dose 30 mg .ROUTE .STK- MED ONE Stop: 05/08/19 19:10 Last Admin: 05/08/19 19:20 Dose: Not Given Levothyroxine Sodium (Synthroid) Confirm Administered Dose 88 mcg .ROUTE .STK- MED ONE Stop: 05/05/19 07:58 Last Admin: 05/05/19 08:15 Dose: Not Given Levothyroxine Sodium (Synthroid) Confirm Administered Dose 88 mcg .ROUTE .STK- MED ONE Stop: 05/06/19 06:07 Last Admin: 05/06/19 06:44 Dose: Not Given Levothyroxine Sodium (Synthroid) Confirm Administered Dose 88 mcg .ROUTE .STK- MED ONE Stop: 05/07/19 05:51 Last Admin: 05/07/19 07:01 Dose: Not Given Levothyroxine Sodium (Synthroid) Confirm Administered Dose 88 mcg .ROUTE .STK- MED ONE Stop: 05/08/19 06:09 Last Admin: 05/08/19 06:35 Dose: Not Given Lisinopril (Prinivil) Confirm Administered Dose 5 mg .ROUTE .STK-MED ONE Stop: 05/08/19 12:05 Last Admin: 05/08/19 12:13 Dose: Not Given Methylprednisolone Sodium Succinate (Solu-Medrol) 60 mg IM ONETIME ONE Stop: 05/09/19 09:00 Last Admin: 05/09/19 10:37 Dose: 60 mg Non-Formulary Medication (Multivitamin [Men's Multi-Vitamin]) 1 each PO 1200 [facility] Omeprazole (Omeprazole) 40 mg PO ACBREAKFAST [facility] - Exam Quality Assessment: No: DVT Prophylaxis, Skin Breakdown General: Alert, Oriented, Cooperative, No Acute Distress HEENT: Pupils Equal, Mucous Membr. Moist/[place] Neck: Supple, Trachea Midline Lungs: Decreased Breath Sounds (to bases and some increase in respirations after nebulizer, but wheezing improved.) Cardiovascular: Regular Rate, Regular Rhythm, Murmurs GI/Abdominal Exam: Normal Bowel Sounds, Soft, Non-Tender Extremities: Normal Inspection, No Pedal Edema Skin: Warm, Dry Neurological: No New Focal Deficit Psy/Mental Status: Alert, Normal Affect, Normal Mood - Problem List & Annotations (1) Pneumonia SNOMED Code(s): 107393204 Code(s): J18.9 - PNEUMONIA, UNSPECIFIED ORGANISM Status: Acute Current Visit: Yes (2) CHF exacerbation SNOMED Code(s): 720673334, 40078920300067 Code(s): I50.9 - HEART FAILURE, UNSPECIFIED Status: Acute Current Visit: Yes (3) Weakness generalized SNOMED Code(s): 89790261 Code(s): R53.1 - WEAKNESS Status: Acute Priority: High Current Visit: No (4) Chronic pain SNOMED Code(s): 60347286 Code(s): G89.29 - OTHER CHRONIC PAIN Status: Acute Current Visit: Yes (5) Glucose intolerance (impaired glucose tolerance) SNOMED Code(s): 2610808 Code(s): R73.02 - IMPAIRED GLUCOSE TOLERANCE (ORAL) Status: Acute Current Visit: Yes - Problem List Review Problem List Initiated/Reviewed/Updated: Yes - My Orders Last 24 Hours: My Active Orders 05/09/19 10:47 guaiFENesin [Robitussin] 200 mg PO Q4H PRN 05/09/19 12:00 Levalbuterol HCl [Xopenex] 1.25 mg NEB Q6HR 05/10/19 08:00 BASIC METABOLIC PANEL,BMP [CHEM] Routine CBC WITH AUTO DIFF [HEME] Routine - Plan Plan:: pneumonia/COPD exacerbation and elevated BNP/pulmonary congestion per x-ray Shortness of breath, purulent sputum and difficulty swallowing: Speech consult to evaluate swallowing Lasix 20 mg IV X 1 today. Lisinopril 5 mg PO daily. Continue with Azithromycin and Rocephin IV daily. PT/OT evaluation for strengthening 05-09-19 Tachypnea after nebulizer today, will change to xopenex qid. Lasix 20 mg IV given X 1 today in addition to PO dose. Continue with Lisinopril daily. Weight same today as yesterday and no peripheral edema noted. Thick sputum continues Mucinex added and continue with Azithromycin and Rocephin IV. Solu-Medrol 60 mg IV given X 1 today with the increase in wheezing and tachypnea this am. CBC and BMP in am. ST evaluation today for swallowing eval. PT/OT continue to work with pt.
[2019-05-10] MEDS: Levalbuterol HCl 1.25 MG/0.5 ML Neb NEB SCH ×2 (02:34→05:27)
[2019-05-10] MEDS: cefTRIAXone 1 GM in Sodium Chloride 0.9% 50 ML IV SCH (02:35)
[2019-05-10] MEDS: Azithromycin 500 MG in Sodium Chloride 0.9% 250 ML IV SCH ×2 (02:35→03:15)
[2019-05-10] MEDS: guaiFENesin 100 MG/5 ML Soln 10 ML UD Cup PO PRN (05:27)
[2019-05-10] MEDS: Acetaminophen 650 MG Tab.ER PO SCH (05:27)
[2019-05-10] MEDS: Levothyroxine 50 MCG Tab PO SCH (06:09)
[2019-05-10] MEDS: BERBERINE PO SCH (06:09)
[2019-05-10] MEDS ORDERED: Pantoprazole 40 MG Tab.CR ONE (07:19)
[2019-05-10] MEDS: Metoprolol Tartrate 25 MG Tab PO SCH (07:23)
[2019-05-10] MEDS: Lisinopril 5 MG Tab PO SCH (07:23)
[2019-05-10] MEDS: Furosemide 20 MG Tab PO SCH (07:23)
[2019-05-10] MEDS: Clopidogrel 75 MG Tab PO SCH (07:24)
[2019-05-10] MEDS: Pantoprazole 40 MG Tab.CR PO SCH (07:24)
[2019-05-10] MEDS: Lidocaine 5% 700 MG Patch TOP SCH (07:24)
[2019-05-10] MEDS: Tiotropium Inhaler 18 MCG Inhalation Powder Cap Kit of 5 INH SCH (07:25)
[2019-05-10 07:33] VITALS: BP 133/62; PULSE 95
[2019-05-10] MEDS ORDERED: Furosemide 40 MG/4 ML VIAL IVPUSH ONE (08:36)
[2019-05-10] MEDS ORDERED: predniSONE 20 MG Tab PO SCH (12:00)
== END 2019-05-10 10:44 | disposition swing bed (61) | DRG 190 ==
LOC: LB.ED 00:28 → LB.MS 03:15
PROVIDERS: ADMIT Surgery; ATTEND Surgery
DX: J44.0 Chronic obstructive pulmonary disease with (acute) lower respiratory infection (principal); J18.9 Pneumonia, unspecified organism; C91.10 Chronic lymphocytic leukemia of B-cell type not having achieved remission; J44.1 Chronic obstructive pulmonary disease with (acute) exacerbation; I10 Essential (primary) hypertension; I50.9 Heart failure, unspecified; Z66 Do not resuscitate; Z79.82 Long term (current) use of aspirin; G89.29 Other chronic pain; R73.02 Impaired glucose tolerance (oral); I25.10 Atherosclerotic heart disease of native coronary artery without angina pectoris; I11.0 Hypertensive heart disease with heart failure; M54.9 Dorsalgia, unspecified; Z86.73 Personal history of transient ischemic attack (TIA), and cerebral infarction without residual deficits; Z79.899 Other long term (current) drug therapy
CPT/HCPCS: 36415; 71045; 80053; 83880; 85025; 87804 ×2; 99285; A0425; A0429; 80048; 82962; 92526-GN; 92610-GN; 97110-GP; 97161-GP; 97165-GO; 97530-GO; 97530-GP; 97535-GO; A9270-GY; J0456; J0696; J1885; J1940; J2930; J7050; J7612; J7620-GY

== ENCOUNTER 2019-05-09 09:02 | Inpatient (IN) | payer MEDICARE ==
[2019-05-10] MEDS ORDERED: Albuterol 8 GM Inhaler INH PRN (10:22)
[2019-05-10] MEDS ORDERED: Polyethylene Glycol 3350 Powder 17 GM Packet PO PRN (10:22)
[2019-05-10] MEDS ORDERED: Non-Formulary Medication 1 Each (Ubidecarenone [Co Q-10] 200 MG) PO SCH (12:00)
[2019-05-10] MEDS ORDERED: Non-Formulary Medication 1 Each (Multivitamin [Men's Multi-Vitamin] 1 EACH) PO SCH (12:00)
[2019-05-10] MEDS ORDERED: predniSONE 20 MG Tab PO SCH (12:00)
[2019-05-10] MEDS: Tamsulosin 0.4 MG Cap.ER PO SCH (12:13)
[2019-05-10] MEDS ORDERED: predniSONE 20 MG Tab ONE (12:26)
[2019-05-10] MEDS: Levalbuterol HCl 1.25 MG/0.5 ML Neb NEB SCH ×2 (13:00→17:50)
[2019-05-10] MEDS: Tuberculin, PPD 5 Units/0.1 ML 1 ML MDV IDERM ONE ×2 (13:03→14:11)
[2019-05-10] MEDS: Multivitamins with Iron/Calcium/Folic Acid/Minerals Tab PO SCH (13:04)
[2019-05-10] MEDS: predniSONE 20 MG Tab PO SCH ×2 (13:07→13:08)
[2019-05-10] MEDS: Acetaminophen 650 MG Tab.ER PO SCH ×2 (13:17→21:11)
[2019-05-10] MEDS ORDERED: guaiFENesin 100 MG/5 ML Soln 10 ML UD Cup PO PRN (13:49)
[2019-05-10] MEDS: BERBERINE PO SCH (17:50)
[2019-05-10] MEDS: Aspirin 81 MG Tab.EC PO SCH (19:09)
[2019-05-10] MEDS: Metoprolol Tartrate 25 MG Tab PO SCH (19:09)
[2019-05-10] MEDS: atorvaSTATin 40 MG Tab PO SCH (19:09)
[2019-05-11] MEDS: Levalbuterol HCl 1.25 MG/0.5 ML Neb NEB SCH ×5 (00:31→23:17)
[2019-05-11] MEDS: Levothyroxine 88 MCG Tab PO SCH (06:22)
[2019-05-11] MEDS: Metoprolol Tartrate 25 MG Tab PO SCH ×2 (06:22→19:05)
[2019-05-11] MEDS: BERBERINE PO SCH ×3 (06:24→16:59)
[2019-05-11] MEDS: Acetaminophen 650 MG Tab.ER PO SCH ×3 (06:28→21:06)
--- NOTE | 2019-05-11 06:55 | PCM.HP.2 ---
H&P History of Present Illness - General Date of Service: 05/10/19 Admit Problem/Dx: Admission Diagnosis/Problem Admission Diagnosis/Problem Weakness Source of Information: Patient, RN, RN Notes Reviewed History Limitations: Reports: No Limitations - History of Present Illness Initial Comments - Free Text/Narative: 88 yo male is admitted to [facility] program for weakness, after hospitalization for pneumonia/COPD exacerbation, pulmonary congestion/CHF. Hx of CVA with right sided weakness (stable), impaired glucose tolerance (stable with diet), hypothyroid (stable) and stable hypertension, stable GERD, chronic pain controlled with Fentanyl patch and Tylenol. PT/OT and ST evaluations completed and plan developed for strengthening. Shortness of breath is improved, continuing with antibiotic, short course Prednisone and nebulizer and pt continues with productive cough and improvement noted. CHF symptoms improved with Lisinopril and Lasix IV. Continuing with oral Lasix. Lower Back Pain Score (Numeric/FACES): 4 - Related Data Allergies/Adverse Reactions: Allergies Allergy/AdvReac Type Severity Reaction Status Date / Time No Known Allergies Allergy Verified 12/20/18 12:47 Home Medications: Home Meds Aspirin [Adult Low Dose Aspirin EC] 81 mg PO QPM 11/16/13 [History] Levothyroxine [Synthroid] 88 mcg PO ACBREAKFAST 11/16/13 [History] atorvaSTATin [Lipitor] 40 mg PO BEDTIME 01/13/16 [History] Acetaminophen [Tylenol Arthritis] 650 mg PO Q8HR 08/25/17 [History] Clopidogrel [Plavix] 75 mg PO DAILY 08/25/17 [History] Furosemide [Lasix] 20 mg PO DAILY 08/25/17 [History] Metoprolol Tartrate [Lopressor] 25 mg PO BIDAC 08/25/17 [History] Multivitamin [Men's Multi-Vitamin] 1 each PO 1200 08/25/17 [History] Tamsulosin [Flomax] 0.4 mg PO DAILY@1200 08/25/17 [History] Ubidecarenone [Co Q-10] 200 mg PO 1200 08/25/17 [History] Albuterol [Ventolin HFA] 2 inhalation INH Q4H PRN inhaler 09/23/18 [Rx] Omeprazole 40 mg PO ACBREAKFAST cap.cr 10/20/18 [Rx] Polyethylene Glycol 3350 [MiraLAX] 17 gm PO BID PRN 12/20/18 [History] Lidocaine 5% [Lidoderm 5%] 1 patch TOP DAILY #10 patch 12/22/18 [Rx] Remove Patch 1 ea TRDERM DAILY@1999 each 12/22/18 [Rx] fentaNYL [Duragesic] 12 mcg TD Q72H #10 patch 12/22/18 [Rx] Past Medical History HEENT History: Reports: Impaired Vision, Macular Degeneration, Other (See Below) 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 Has been to oncologist and they are watching it Gastrointestinal History: Reports: Chronic Constipation Genitourinary History: Reports: BPH, Other (See Below) Other Genitourinary History: incontinent Musculoskeletal History: Reports: Fracture Neurological History: Reports: CVA, TIA Endocrine/Metabolic History: Reports: Diabetes, Type II, Hypothyroidism, Other ( See Below) Other Endocrine/Metabolic History: diet controled diabetes Hematologic History: Reports: Other (See Below) Other Hematologic History: hx leukemia Oncologic (Cancer) History: Reports: None Other Dermatologic History: breakdown on tailbone - Infectious Disease History Infectious Disease History: Reports: Chicken Pox, Measles, Mumps - Past Surgical History HEENT Surgical History: Reports: Cataract Surgery Cardiovascular Surgical History: Reports: Coronary Artery Bypass, Coronary Artery Stent, Vascular Surgery Respiratory Surgical History: Reports: None GI Surgical History: Reports: None Male Surgical History: Reports: None Endocrine Surgical History: Reports: None Neurological Surgical History: Reports: None Musculoskeletal Surgical History: Reports: Shoulder Surgery, Other (See Below) Other Musculoskeletal Surgeries/Procedures:: Bilat shoulder sx, fx arm Social & Family History - Family History Family Medical History: Noncontributory - Tobacco Use Smoking Status *Q: Never Smoker Second Hand Smoke Exposure: Yes - Caffeine Use Caffeine Use: Reports: Coffee Caffeine Use Comment: 3 cups day - Recreational Drug Use Recreational Drug Use: No H&P Review of Systems - Review of Systems: Review Of Systems: See Below General: Reports: Weakness. Denies: Fever, Chills HEENT: Denies: Ear Pain, Eye Pain, Headaches, Sore Throat Pulmonary: Reports: Cough, Sputum. Denies: Pleuritic Chest Pain, Hemoptysis Cardiovascular: Reports: Dyspnea on Exertion. Denies: Chest Pain, Palpitations , Edema Gastrointestinal: Reports: Difficulty Swallowing. Denies: Constipation, Diarrhea Genitourinary: Reports: Incontinence. Denies: Dysuria, Hematuria, Flank Pain Musculoskeletal: Reports: Other (chronic pain to back, joints) Psychiatric: Reports: No Symptoms Neurological: Reports: Difficulty Walking, Weakness, Gait Disturbance. Denies: Dizziness, Change in Speech Exam - Exam Exam: See Below - Vital Signs Vital Signs: Last Vital Signs Temp 97.4 F 05/10/19 20:00 Pulse 87 05/11/19 06:22 Resp 18 05/10/19 20:00 BP 123/90 05/11/19 06:22 Pulse Ox 95 05/10/19 20:00 Weight: 133 lb 3.2 oz - Exam Quality Assessment: No: Supplemental Oxygen, Urinary Catheter, Skin Breakdown General: Alert, Oriented, Cooperative HEENT: Mucosa Moist & [place], Nares Patent, Pupils Equal, Pupils Reactive Neck: Supple, Trachea Midline Lungs: Decreased Breath Sounds (to bases, clear to other lung rose) Cardiovascular: Normal S1, Normal S2 GI/Abdominal Exam: Normal Bowel Sounds, Soft, Non-Tender, No Distention Back Exam: No: Paraspinal Tenderness, Vertebral Tenderness Extremities: Non-Tender, No Pedal Edema, Normal Capillary Refill Skin: Warm, Dry, Intact Neuro Extensive - Mental Status: Alert, Normal Mood/Affect, Normal Cognition Psychiatric: Alert, Normal Affect, Normal Mood - Problem List (1) CHF exacerbation SNOMED Code(s): 258728899, [id number] ICD Code: I50.9 - HEART FAILURE, UNSPECIFIED Status: Acute Current Visit : No (2) Pneumonia SNOMED Code(s): 785276897 ICD Code: J18.9 - PNEUMONIA, UNSPECIFIED ORGANISM Status: Acute Priority : High Current Visit: No (3) Weakness generalized SNOMED Code(s): 50260845 ICD Code: R53.1 - WEAKNESS Status: Acute Priority: High Current Visit: No Problem List Initiated/Reviewed/Updated: Yes Orders Last 24hrs: Active Orders 24 hr Category Date Time Status Patient Status [ADT] Routine ADT 05/10/19 10:14 Active Height and Weight [RC] DAILY Care 05/10/19 10:15 Active RT Post Treatment Assessment [RC] Click to Edit Care 05/10/19 13:44 Active Up With Assistance [RC] ASDIRECTED Care 05/10/19 10:13 Active VTE/DVT Education [RC] Per Unit Routine Care 05/10/19 10:14 Active Vital Signs [RC] 08,20 Care 05/10/19 10:14 Active OT Evaluation and Treatment [CONS] Routine Cons 05/10/19 10:13 Active PT Evaluation and Treatment [CONS] Routine Cons 05/10/19 10:13 Active Mechanical Soft Diet [DIET] Diet 05/10/19 Lunch Ordered Acetaminophen [Tylenol Arthritis Pain] Med 05/10/19 14:00 Active 650 mg PO Q8H Aspirin [Halfprin] Med 05/10/19 20:00 Active 81 mg PO QPM Azithromycin [Zithromax] Med 05/11/19 08:00 Active 500 mg PO DAILY Clopidogrel [Plavix] Med 05/11/19 08:00 Active 75 mg PO DAILY Furosemide [Lasix] Med 05/11/19 08:00 Active 20 mg PO DAILY Levalbuterol HCl [Xopenex] Med 05/10/19 12:00 Active 1.25 mg NEB Q6H Levothyroxine [Synthroid] Med 05/11/19 07:00 Active 88 mcg PO ACBREAKFAST Lidocaine 5% [Lidoderm 5%] Med 05/11/19 08:00 Active 700 mg TOP DAILY Lisinopril [Prinivil] Med 05/11/19 08:00 Active 5 mg PO DAILY Metoprolol Tartrate [Lopressor] Med 05/10/19 20:00 Active 25 mg PO BIDAC Multivitamins w-Iron/Ca/FA/Min [Thera M Plus] Med 05/11/19 12:00 Active 1 tab PO DAILY@1200 Non-Formulary Medication [NF Drug] Med 05/10/19 17:00 Active 1 each PO TIDAC Pantoprazole [ProTONIX] Med 05/11/19 08:00 Active 40 mg PO ACBREAKFAST Polyethylene Glycol 3350 [MiraLAX] Med 05/10/19 10:22 Active 17 gm PO BID PRN Remove Patch Med 05/11/19 20:00 Active 1 ea TRDERM DAILY@2000 Remove Patch Med 05/11/19 08:00 Active 1 ea TRDERM Q72H Tamsulosin [Flomax] Med 05/10/19 12:00 Active 0.4 mg PO DAILY@1200 Tiotropium [Spiriva HandiHaler] Med 05/11/19 08:00 Active 18 mcg INH DAILY atorvaSTATin [Lipitor] Med 05/10/19 20:00 Active 40 mg PO BEDTIME fentaNYL [Duragesic] Med 05/11/19 08:00 Active 12 mcg TRDERM Q72H guaiFENesin [Robitussin] Med 05/10/19 13:49 Active 200 mg PO Q4H PRN predniSONE Med 05/10/19 11:00 Active 40 mg PO WITHLUNCH Resuscitation Status Routine Resus Stat 05/10/19 10:13 Ordered Medication Orders Acetaminophen (Tylenol Arthritis Pain) 650 mg PO Q8H [facility] Last Admin: 05/11/19 06:28 Dose: 650 mg Admin: 05/10/19 21:11 Dose: 650 mg Admin: 05/10/19 13:17 Dose: 650 mg Aspirin (Halfprin) 81 mg PO QPM [facility] Last Admin: 05/10/19 19:09 Dose: 81 mg Atorvastatin Calcium (Lipitor) 40 mg PO BEDTIME [facility] Last Admin: 05/10/19 19:09 Dose: 40 mg Azithromycin (Zithromax) 500 mg PO DAILY [facility] Stop: 05/14/19 09:00 Clopidogrel Bisulfate (Plavix) 75 mg PO DAILY [facility] Fentanyl (Duragesic) 12 mcg TRDERM Q72H [facility] Furosemide (Lasix) 20 mg PO DAILY [facility] Guaifenesin (Robitussin) 200 mg PO Q4H PRN PRN Reason: Cough Levalbuterol HCl (Xopenex) 1.25 mg NEB Q6H [facility] Last Admin: 05/11/19 06:22 Dose: 1.25 mg Admin: 05/11/19 00:31 Dose: 1.25 mg Admin: 05/10/19 17:50 Dose: 1.25 mg Admin: 05/10/19 13:00 Dose: 1.25 mg Levothyroxine Sodium (Synthroid) 88 mcg PO ACBREAKFAST [facility] Last Admin: 05/11/19 06:22 Dose: 88 mcg Lidocaine (Lidoderm 5%) 700 mg TOP DAILY [facility] Lisinopril (Prinivil) 5 mg PO DAILY [facility] Metoprolol Tartrate (Lopressor) 25 mg PO BIDAC [facility] Last Admin: 05/11/19 06:22 Dose: 25 mg Admin: 05/10/19 19:09 Dose: 25 mg Miscellaneous Information (Remove Patch) 1 ea TRDERM Q72H [facility] Miscellaneous Information (Remove Patch) 1 ea TRDERM DAILY@2000 [facility] Multivitamins/Minerals (Thera M Plus) 1 tab PO DAILY@1200 [facility] Berberine Glucogold 1 each PO TIDAC [facility] Last Admin: 05/11/19 06:24 Dose: 1 each Admin: 05/10/19 17:50 Dose: 1 each Pantoprazole Sodium (Protonix) 40 mg PO ACBREAKFAST [facility] Polyethylene Glycol (Miralax) 17 gm PO BID PRN PRN Reason: Constipation Prednisone (Prednisone) 40 mg PO WITHLUNCH [facility] Last Admin: 05/10/19 13:08 Dose: Not Given Admin: 05/10/19 13:07 Dose: 40 mg Tamsulosin HCl (Flomax) 0.4 mg PO DAILY@1200 [facility] Last Admin: 05/10/19 12:13 Dose: 0.4 mg Tiotropium [place] (Spiriva Handihaler) 18 mcg INH DAILY [facility] Assessment/Plan Comment:: PT/OT for strengthening, refer to plan of care. ST plan developed, refer to plan of care Pneumonia/COPD and CHF/pulmonary congestion improved, continue with PO medications, nebulizers and supportive care. Chronic pain stable with Fentanyl patch and Tylenol GERD stable with Protonix Hypertension, hypothyroid, impaired glucose tolerance stable with current diet and medications. - Mortality Measure Prognosis:: Good
[2019-05-11] MEDS ORDERED: Levothyroxine 50 MCG Tab PO SCH (07:00)
[2019-05-11] MEDS ORDERED: Omeprazole 20 MG Cap.CR PO SCH (07:00)
[2019-05-11] MEDS: Lidocaine 5% 700 MG Patch TOP SCH (08:21)
[2019-05-11] MEDS: Clopidogrel 75 MG Tab PO SCH (08:22)
[2019-05-11] MEDS: Azithromycin 500 MG Tab PO SCH (08:22)
[2019-05-11] MEDS: Furosemide 20 MG Tab PO SCH (08:22)
[2019-05-11] MEDS: Pantoprazole 40 MG Tab.CR PO SCH (08:22)
[2019-05-11] MEDS: Lisinopril 5 MG Tab PO SCH (08:22)
[2019-05-11] MEDS ORDERED: fentaNYL 12 MCG/HR Transdermal Patch ONE (08:24)
[2019-05-11] MEDS: fentaNYL 12 MCG/HR Transdermal Patch TRDERM SCH (08:28)
[2019-05-11] MEDS: Tiotropium Inhaler 18 MCG Inhalation Powder Cap Kit of 5 INH SCH (08:36)
[2019-05-11] MEDS: Multivitamins with Iron/Calcium/Folic Acid/Minerals Tab PO SCH (12:00)
[2019-05-11] MEDS: Tamsulosin 0.4 MG Cap.ER PO SCH (12:01)
[2019-05-11] MEDS: predniSONE 20 MG Tab PO SCH (12:01)
[2019-05-11] MEDS: atorvaSTATin 40 MG Tab PO SCH (19:05)
[2019-05-11] MEDS: Aspirin 81 MG Tab.EC PO SCH (19:12)
[2019-05-11] MEDS ORDERED: Sodium Chloride 0.9% 10 ML Syringe FLUSH PRN (23:06)
[2019-05-12] MEDS: Acetaminophen 650 MG Tab.ER PO SCH ×3 (06:16→22:11)
[2019-05-12] MEDS: Pantoprazole 40 MG Tab.CR PO SCH (06:16)
[2019-05-12] MEDS: BERBERINE PO SCH ×3 (06:16→17:06)
[2019-05-12] MEDS: Levothyroxine 88 MCG Tab PO SCH (06:16)
[2019-05-12] MEDS: Levalbuterol HCl 1.25 MG/0.5 ML Neb NEB SCH ×4 (06:17→23:09)
[2019-05-12] MEDS: Metoprolol Tartrate 25 MG Tab PO SCH ×2 (06:17→19:08)
[2019-05-12] MEDS: Tiotropium Inhaler 18 MCG Inhalation Powder Cap Kit of 5 INH SCH (09:03)
[2019-05-12] MEDS: Lidocaine 5% 700 MG Patch TOP SCH (09:04)
[2019-05-12] MEDS: Clopidogrel 75 MG Tab PO SCH (09:04)
[2019-05-12] MEDS: Lisinopril 5 MG Tab PO SCH (09:04)
[2019-05-12] MEDS: Furosemide 20 MG Tab PO SCH (09:04)
[2019-05-12] MEDS: Azithromycin 500 MG Tab PO SCH (09:04)
[2019-05-12] MEDS: Multivitamins with Iron/Calcium/Folic Acid/Minerals Tab PO SCH (12:10)
[2019-05-12] MEDS: predniSONE 20 MG Tab PO SCH (12:10)
[2019-05-12] MEDS: Tamsulosin 0.4 MG Cap.ER PO SCH (12:10)
[2019-05-12] MEDS: atorvaSTATin 40 MG Tab PO SCH (19:08)
[2019-05-12] MEDS: Aspirin 81 MG Tab.EC PO SCH (19:08)
[2019-05-13] MEDS: Levothyroxine 88 MCG Tab PO SCH (06:12)
[2019-05-13] MEDS: Metoprolol Tartrate 25 MG Tab PO SCH ×2 (06:12→19:04)
[2019-05-13] MEDS: Levalbuterol HCl 1.25 MG/0.5 ML Neb NEB SCH ×3 (06:12→17:04)
[2019-05-13] MEDS: Acetaminophen 650 MG Tab.ER PO SCH ×4 (06:12→19:33)
[2019-05-13] MEDS: BERBERINE PO SCH ×3 (06:12→17:04)
[2019-05-13] MEDS: Pantoprazole 40 MG Tab.CR PO SCH (06:12)
[2019-05-13] MEDS: Tiotropium Inhaler 18 MCG Inhalation Powder Cap Kit of 5 INH SCH (08:34)
[2019-05-13] MEDS: Lidocaine 5% 700 MG Patch TOP SCH (08:34)
[2019-05-13] MEDS: Lisinopril 5 MG Tab PO SCH (08:35)
[2019-05-13] MEDS: Clopidogrel 75 MG Tab PO SCH (08:35)
[2019-05-13] MEDS: Furosemide 20 MG Tab PO SCH ×2 (08:35→15:07)
[2019-05-13] MEDS: Azithromycin 500 MG Tab PO SCH (08:35)
[2019-05-13] MEDS: predniSONE 20 MG Tab PO SCH (11:42)
[2019-05-13] MEDS: Tamsulosin 0.4 MG Cap.ER PO SCH (11:48)
[2019-05-13] MEDS: Multivitamins with Iron/Calcium/Folic Acid/Minerals Tab PO SCH (11:48)
[2019-05-13] MEDS: Aspirin 81 MG Tab.EC PO SCH (19:03)
[2019-05-13] MEDS: atorvaSTATin 40 MG Tab PO SCH (19:03)
[2019-05-14] MEDS: Levalbuterol HCl 1.25 MG/0.5 ML Neb NEB SCH ×3 (00:26→13:57)
[2019-05-14] MEDS: Levothyroxine 88 MCG Tab PO SCH ×2 (05:58→06:46)
[2019-05-14] MEDS: Pantoprazole 40 MG Tab.CR PO SCH ×2 (05:58→06:45)
[2019-05-14] MEDS: Acetaminophen 650 MG Tab.ER PO SCH ×4 (05:58→22:07)
[2019-05-14] MEDS: Metoprolol Tartrate 25 MG Tab PO SCH ×3 (05:58→20:07)
[2019-05-14] MEDS: Furosemide 20 MG Tab PO SCH ×2 (13:00→14:13)
--- NOTE | 2019-05-14 13:25 | PCM.PN ---
- General Info Date of Service: 05/14/19 Admission Dx/Problem (Free Text): Admission Diagnosis/Problem Admission Diagnosis/Problem Weakness Subjective Update: I am feeling better, I still note some productive cough. I am eating slower after the ST consult. I am getting stronger and PT is coming this afternoon. Functional Status: Reports: Pain Controlled, Tolerating Diet, Incentive Spirometry - Review of Systems General: Reports: Weakness. Denies: Fever, Fatigue HEENT: Reports: No Symptoms. Denies: Sinus Congestion, Sore Throat Pulmonary: Reports: Cough, Sputum. Denies: Shortness of Breath, Wheezing Cardiovascular: Reports: Edema. Denies: Chest Pain, Palpitations Gastrointestinal: Reports: Other (careful with swallowing and chewing food well) . Denies: Constipation, Diarrhea, Nausea, Vomiting Genitourinary: Reports: No Symptoms Musculoskeletal: Reports: Other (weakness to right hand.) Skin: Reports: No Symptoms Neurological: Reports: Weakness. Denies: Dizziness Psychiatric: Reports: No Symptoms - Patient Data Vitals - Most Recent: Last Vital Signs Temp 97.5 F 05/14/19 08:00 Pulse 80 05/14/19 08:00 Resp 19 05/14/19 08:00 BP 171/85 H 05/14/19 08:00 Pulse Ox 96 05/14/19 08:00 Weight - Most Recent: 136 lb 9.6 oz Lab Results Last 24 Hours: Laboratory Results - last 24 hr 05/14/19 Range/Units 07:04 POC Glucose 149 H (74-110) mg/dL Med Orders - Current: Current Medications Acetaminophen (Tylenol Arthritis Pain) 650 mg PO Q8H [facility] Last Admin: 05/14/19 05:58 Dose: 650 mg Aspirin (Halfprin) 81 mg PO QPM [facility] Last Admin: 05/13/19 19:03 Dose: 81 mg Atorvastatin Calcium (Lipitor) 40 mg PO BEDTIME [facility] Last Admin: 05/13/19 19:03 Dose: 40 mg Clopidogrel Bisulfate (Plavix) 75 mg PO DAILY [facility] Last Admin: 05/13/19 08:35 Dose: 75 mg Fentanyl (Duragesic) 12 mcg TRDERM Q72H [facility] Last Admin: 05/11/19 08:28 Dose: 12 mcg Furosemide (Lasix) 20 mg PO BID@0800,1400 [facility] Last Admin: 05/13/19 15:07 Dose: 20 mg Guaifenesin (Robitussin) 200 mg PO Q4H PRN PRN Reason: Cough Levalbuterol HCl (Xopenex) 1.25 mg NEB Q6H [facility] Last Admin: 05/14/19 05:58 Dose: 1.25 mg Levothyroxine Sodium (Synthroid) 88 mcg PO ACBREAKFAST [facility] Last Admin: 05/14/19 06:46 Dose: Not Given Lidocaine (Lidoderm 5%) 700 mg TOP DAILY [facility] Last Admin: 05/13/19 08:34 Dose: 700 mg Lisinopril (Prinivil) 5 mg PO DAILY [facility] Last Admin: 05/13/19 08:35 Dose: 5 mg Metoprolol Tartrate (Lopressor) 25 mg PO BIDAC [facility] Last Admin: 05/14/19 06:45 Dose: Not Given Miscellaneous Information (Remove Patch) 1 ea TRDERM Q72H [facility] Last Admin: 05/11/19 08:36 Dose: 1 ea Miscellaneous Information (Remove Patch) 1 ea TRDERM DAILY@2000 [facility] Last Admin: 05/13/19 19:07 Dose: 1 ea Multivitamins/Minerals (Thera M Plus) 1 tab PO DAILY@1200 [facility] Last Admin: 05/13/19 11:48 Dose: 1 tab Berberine Glucogold 1 each PO TIDAC [facility] Last Admin: 05/13/19 17:04 Dose: 1 each Pantoprazole Sodium (Protonix) 40 mg PO ACBREAKFAST [facility] Last Admin: 05/14/19 06:45 Dose: Not Given Polyethylene Glycol (Miralax) 17 gm PO BID PRN PRN Reason: Constipation Prednisone (Prednisone) 40 mg PO WITHLUNCH [facility] Last Admin: 05/13/19 11:42 Dose: 40 mg Sodium Chloride (Saline Flush) 10 ml FLUSH BID PRN PRN Reason: Keep Vein Open Last Admin: 05/11/19 23:18 Dose: 10 ml Tamsulosin HCl (Flomax) 0.4 mg PO DAILY@1200 [facility] Last Admin: 05/13/19 11:48 Dose: 0.4 mg Tiotropium [place] (Spiriva Handihaler) 18 mcg INH DAILY [facility] Last Admin: 05/13/19 08:34 Dose: 18 mcg Discontinued Medications Albuterol (Ventolin Hfa) gm INH Q4H PRN PRN Reason: Congestion Azithromycin (Zithromax) 500 mg PO DAILY [facility] Stop: 05/14/19 09:00 Last Admin: 05/13/19 08:35 Dose: 500 mg Fentanyl (Duragesic) Confirm Administered Dose 12 mcg .ROUTE .STK-MED ONE Stop: 05/11/19 08:25 Last Admin: 05/11/19 08:59 Dose: Not Given Furosemide (Lasix) 20 mg PO DAILY [facility] Last Admin: 05/13/19 08:35 Dose: 20 mg Omeprazole (Omeprazole) 40 mg PO ACBREAKFAST [facility] Prednisone (Prednisone) 40 mg PO WITHBREAKFAST [facility] Stop: 05/12/19 12:01 Prednisone (Prednisone) Confirm Administered Dose 40 mg .ROUTE .STK-MED ONE Stop: 05/10/19 12:27 Last Admin: 05/10/19 12:41 Dose: Not Given Tuberculin PPD (Aplisol) 5 unit IDERM ONETIME ONE Stop: 05/10/19 15:01 Last Admin: 05/10/19 14:11 Dose: Not Given - Exam Quality Assessment: No: Supplemental Oxygen, DVT Prophylaxis General: Alert, Oriented, Cooperative HEENT: Pupils Equal, Mucous Membr. Moist/[place] Neck: Supple, Trachea Midline Lungs: Clear to Auscultation, Normal Respiratory Effort Cardiovascular: Regular Rate, Regular Rhythm GI/Abdominal Exam: Normal Bowel Sounds, Soft, Non-Tender Extremities: Non-Tender, No Pedal Edema, Normal Capillary Refill Skin: Warm, Dry Psy/Mental Status: Alert, Normal Affect, Normal Mood - Problem List & Annotations (1) CHF exacerbation SNOMED Code(s): 088905448, 54512842776432 Code(s): I50.9 - HEART FAILURE, UNSPECIFIED Status: Acute Current Visit: No (2) Pneumonia SNOMED Code(s): 964123603 Code(s): J18.9 - PNEUMONIA, UNSPECIFIED ORGANISM Status: Acute Priority: High Current Visit: No (3) Weakness generalized SNOMED Code(s): 82595986 Code(s): R53.1 - WEAKNESS Status: Acute Priority: High Current Visit: No - Problem List Review Problem List Initiated/Reviewed/Updated: Yes - Plan Plan:: PT/OT for strengthening, refer to plan of care. ST plan developed, refer to plan of care Pneumonia/COPD and CHF/pulmonary congestion improved, continue with PO medications, nebulizers and supportive care. Chronic pain stable with Fentanyl patch and Tylenol GERD stable with Protonix Hypertension, hypothyroid, impaired glucose tolerance stable with current diet and medications. 05-14-2019 Weakness: Pt improving, more alert, chewing food well at lunch and no choking noted. Good hand to mouth movement with utensil and use of left hand. Right hand propped on pillow, pt sitting upright in chair for lunch, eating soft foods and consistent carbohydrate lunch. PT/OT continues to follow-up with pt. Kindly refer to PT/OT notes. Will D/C Prednisone and xopenex and continue with Spiriva inhaler and Robitussin.
[2019-05-14] MEDS: Lidocaine 5% 700 MG Patch TOP SCH (13:34)
[2019-05-14] MEDS: Multivitamins with Iron/Calcium/Folic Acid/Minerals Tab PO SCH (13:35)
[2019-05-14] MEDS: Tamsulosin 0.4 MG Cap.ER PO SCH (13:35)
[2019-05-14] MEDS: BERBERINE PO SCH ×3 (13:35→20:07)
[2019-05-14] MEDS: Clopidogrel 75 MG Tab PO SCH (13:36)
[2019-05-14] MEDS: Lisinopril 5 MG Tab PO SCH (13:38)
[2019-05-14] MEDS: Tiotropium Inhaler 18 MCG Inhalation Powder Cap Kit of 5 INH SCH (13:38)
[2019-05-14] MEDS: Azithromycin 500 MG Tab PO SCH (13:39)
[2019-05-14] MEDS: fentaNYL 12 MCG/HR Transdermal Patch TRDERM SCH (13:40)
[2019-05-14] MEDS: predniSONE 20 MG Tab PO SCH (13:57)
[2019-05-14] MEDS: atorvaSTATin 40 MG Tab PO SCH (20:07)
[2019-05-14] MEDS: Aspirin 81 MG Tab.EC PO SCH (20:07)
[2019-05-15] MEDS: Acetaminophen 650 MG Tab.ER PO SCH ×4 (05:27→21:42)
[2019-05-15] MEDS: Pantoprazole 40 MG Tab.CR PO SCH ×2 (05:27→06:20)
[2019-05-15] MEDS: Levothyroxine 88 MCG Tab PO SCH ×2 (05:27→06:20)
[2019-05-15] MEDS: Metoprolol Tartrate 25 MG Tab PO SCH ×3 (05:32→20:30)
[2019-05-15] MEDS: BERBERINE PO SCH ×3 (06:18→17:19)
[2019-05-15] MEDS: Tiotropium Inhaler 18 MCG Inhalation Powder Cap Kit of 5 INH SCH (08:29)
[2019-05-15] MEDS: Lisinopril 5 MG Tab PO SCH (08:30)
[2019-05-15] MEDS: Furosemide 20 MG Tab PO SCH ×2 (08:30→14:39)
[2019-05-15] MEDS: Clopidogrel 75 MG Tab PO SCH (08:30)
[2019-05-15] MEDS: Lidocaine 5% 700 MG Patch TOP SCH (08:31)
[2019-05-15] MEDS: Tamsulosin 0.4 MG Cap.ER PO SCH (11:32)
[2019-05-15] MEDS: Multivitamins with Iron/Calcium/Folic Acid/Minerals Tab PO SCH (11:32)
[2019-05-15] MEDS: atorvaSTATin 40 MG Tab PO SCH (20:30)
[2019-05-15] MEDS: Aspirin 81 MG Tab.EC PO SCH (20:31)
[2019-05-16] MEDS: Metoprolol Tartrate 25 MG Tab PO SCH ×2 (05:44→06:02)
[2019-05-16] MEDS: Levothyroxine 88 MCG Tab PO SCH ×2 (05:44→06:02)
[2019-05-16] MEDS: Pantoprazole 40 MG Tab.CR PO SCH ×2 (05:44→06:02)
[2019-05-16] MEDS: Acetaminophen 650 MG Tab.ER PO SCH (05:44)
[2019-05-16] MEDS: BERBERINE PO SCH ×2 (05:45→06:02)
[2019-05-16] MEDS: Tiotropium Inhaler 18 MCG Inhalation Powder Cap Kit of 5 INH SCH (08:31)
[2019-05-16] MEDS: Clopidogrel 75 MG Tab PO SCH (08:36)
[2019-05-16] MEDS: Lisinopril 5 MG Tab PO SCH (08:36)
[2019-05-16] MEDS: Furosemide 20 MG Tab PO SCH (08:36)
[2019-05-16 08:37] VITALS: BP 131/73
[2019-05-16] MEDS: Lidocaine 5% 700 MG Patch TOP SCH (08:37)
[2019-05-16 09:07] VITALS: PULSE 66
--- NOTE | 2019-05-16 10:04 | PCM.DCSUM1 ---
Discharge Summary - Hospital Course HPI Initial Comments: 88 yo male was admitted to Swing bed program with weakness, post acute hospitalization for pneumonia and chronic bronchitis exacerbation, pulmonary congestion/CHF. Health history significant for CVA with right sided weakness, impaired glucose tolerance controlled with diet, hypothyroid (stable), hypertension (stable), GERD (stable) and chronic pain (stable with Fentanyl patch). Medication changes include increase in Levothyroxin to 88 mcg/day, increase in Lasix 20 mg PO bid, started Lisinopril 5mg PO daily, and started Spiriva inhaler daily. Pt has improvement noted of strength and ambulatory with assist of one to two [address]/OT/PT evaluations completed and POC developed. Kindly refer to each disciplines notes for this. Pt does have an electric wheelchair/scooter he uses at home. Diagnosis: Stroke: No - Discharge Data Discharge Date: 05/16/19 Discharge Disposition: Home, Self-Care 01 Condition: Good - Referral to Home Health Primary Care Physician: PCP None - Discharge Diagnosis/Problem(s) (1) CHF exacerbation SNOMED Code(s): 873953008, 31032706213719 ICD Code: I50.9 - HEART FAILURE, UNSPECIFIED Status: Acute Current Visit : No (2) Pneumonia SNOMED Code(s): 161419194 ICD Code: J18.9 - PNEUMONIA, UNSPECIFIED ORGANISM Status: Acute Priority : High Current Visit: No (3) Weakness generalized SNOMED Code(s): 07339393 ICD Code: R53.1 - WEAKNESS Status: Acute Priority: High Current Visit: No - Patient Summary/Data Consults: Consultations 05/10/19 10:13 OT Evaluation and Treatment [CONS] Routine Please Evaluate and Treat. OT Reason for Consult: Strengthening This query below is only for informational purposes and is not editable. PT Evaluation and Treatment [CONS] Routine Please Evaluate and Treat. PT Reason for Consult: Strengthening This query below is only for informational purposes and is not editable. 05/15/19 13:38 Consult to Speech Language Pathology [[employer] Evaluation and Treatment] [CONS] Routine Please Evaluate and Treat [employer] Reason for Consult: Aphasia This query below is only for informational purposes and is not editable. Admission Diagnosis/Problem: Weakness - Patient Instructions Diet: Usual Diet as Tolerated Activity: Full Weight Bearing Driving: Do Not Drive - Discharge Plan *PRESCRIPTION DRUG MONITORING PROGRAM REVIEWED*: Not Applicable *COPY OF PRESCRIPTION DRUG MONITORING REPORT IN PATIENT LUCIO: Not Applicable Prescriptions/Med Rec: Furosemide [Lasix] 20 mg PO BID@0800,1400 #60 tablet Levothyroxine [Synthroid] 88 mcg PO ACBREAKFAST #30 tablet Lisinopril [Prinivil] 5 mg PO DAILY 30 Days #30 tablet Tiotropium [Spiriva] 1 puff INH DAILY 30 Days #30 kit Home Medications: Home Meds Aspirin [Adult Low Dose Aspirin EC] 81 mg PO QPM 11/16/13 [History] atorvaSTATin [Lipitor] 40 mg PO BEDTIME 01/13/16 [History] Acetaminophen [Tylenol Arthritis] 650 mg PO Q8HR 08/25/17 [History] Clopidogrel [Plavix] 75 mg PO DAILY 08/25/17 [History] Metoprolol Tartrate [Lopressor] 25 mg PO ACBREAKFAST 08/25/17 [History] Multivitamin [Men's Multi-Vitamin] 1 each PO 1200 08/25/17 [History] Tamsulosin [Flomax] 0.4 mg PO DAILY@1700 08/25/17 [History] Ubidecarenone [Co Q-10] 200 mg PO 1200 08/25/17 [History] Albuterol [Ventolin HFA] 2 inhalation INH Q4H PRN inhaler 09/23/18 [Rx] Omeprazole 40 mg PO ACBREAKFAST cap.cr 10/20/18 [Rx] Polyethylene Glycol 3350 [MiraLAX] 17 gm PO BID PRN 12/20/18 [History] Lidocaine 5% [Lidoderm 5%] 1 patch TOP DAILY #10 patch 12/22/18 [Rx] Remove Patch 1 ea TRDERM DAILY@1999 each 12/22/18 [Rx] fentaNYL [Duragesic] 12 mcg TD Q72H #10 patch 12/22/18 [Rx] Furosemide [Lasix] 20 mg PO BID@0800,1400 #60 tablet 05/15/19 [Rx] Levothyroxine [Synthroid] 88 mcg PO ACBREAKFAST #30 tablet 05/15/19 [Rx] Lisinopril [Prinivil] 5 mg PO DAILY 30 Days #30 tablet 05/15/19 [Rx] Non-Formulary Medication [NF Drug] 1 each PO TIDAC each 11/26/19 [Rx] Tiotropium [Spiriva HandiHaler] 18 mcg INH DAILY cap 05/15/19 [Rx] guaiFENesin [Robitussin] 200 mg PO Q4H PRN cup 05/15/19 [Rx] Tiotropium [Spiriva] 1 puff INH DAILY 30 Days #30 kit 05/16/19 [Rx] Patient Handouts: Fatigue, Preventing Pressure Injuries, Community-Acquired Pneumonia, Adult, [id number] - Discharge Summary/Plan Comment DC Time >30 min.: No Discharge Summary/Plan Comment: Discharge to care of family. Increase of Levothyroxine, new to Lisinopril and increase of Lasix to bid for heart failure/pulmonary congestion. Continue with Spiriva and Albuterol inhaler. Completed Prednisone and Azithromycin for pneumonia/ chronic bronchitis. Hx of CVA and has been providing cares in the home for this. PT/OT/ST evaluations completed, kindly refer to notes, POC for these disciplines. Pt has increased in strength and ambulatory with assist of one to two and walker. RTC with PCP in 1-2 weeks for follow-up. - Patient Data Vitals - Most Recent: Last Vital Signs Temp 98.0 F 05/16/19 08:00 Pulse 66 05/16/19 08:00 Resp 20 05/16/19 08:00 BP 131/73 05/16/19 08:36 Pulse Ox 96 05/16/19 08:00 Weight - Most Recent: 136 lb 9.6 oz Lab Results - Last 24 hrs: Laboratory Results - last 24 hr 05/16/19 Range/Units 07:18 POC Glucose 109 (74-110) mg/dL Med Orders - Current: Current Medications Acetaminophen (Tylenol Arthritis Pain) 650 mg PO Q8H [facility] Last Admin: 05/16/19 05:44 Dose: 650 mg Aspirin (Halfprin) 81 mg PO QPM [facility] Last Admin: 05/15/19 20:31 Dose: 81 mg Atorvastatin Calcium (Lipitor) 40 mg PO BEDTIME [facility] Last Admin: 05/15/19 20:30 Dose: 40 mg Clopidogrel Bisulfate (Plavix) 75 mg PO DAILY [facility] Last Admin: 05/16/19 08:36 Dose: 75 mg Fentanyl (Duragesic) 12 mcg TRDERM Q72H [facility] Last Admin: 05/14/19 13:40 Dose: 12 mcg Furosemide (Lasix) 20 mg PO BID@0800,1400 [facility] Last Admin: 05/16/19 08:36 Dose: 20 mg Guaifenesin (Robitussin) 200 mg PO Q4H PRN PRN Reason: Cough Levothyroxine Sodium (Synthroid) 88 mcg PO ACBREAKFAST [facility] Last Admin: 05/16/19 06:02 Dose: Not Given Lidocaine (Lidoderm 5%) 700 mg TOP DAILY [facility] Last Admin: 05/16/19 08:37 Dose: 700 mg Lisinopril (Prinivil) 5 mg PO DAILY [facility] Last Admin: 05/16/19 08:36 Dose: 5 mg Metoprolol Tartrate (Lopressor) 25 mg PO BIDAC [facility] Last Admin: 05/16/19 06:02 Dose: Not Given Miscellaneous Information (Remove Patch) 1 ea TRDERM Q72H [facility] Last Admin: 05/14/19 13:55 Dose: 1 ea Miscellaneous Information (Remove Patch) 1 ea TRDERM DAILY@2000 [facility] Last Admin: 05/15/19 20:33 Dose: 1 ea Multivitamins/Minerals (Thera M Plus) 1 tab PO DAILY@1200 [facility] Last Admin: 05/15/19 11:32 Dose: 1 tab Berberine Glucogold 1 each PO TIDAC [facility] Last Admin: 05/16/19 06:02 Dose: Not Given Pantoprazole Sodium (Protonix) 40 mg PO ACBREAKFAST [facility] Last Admin: 05/16/19 06:02 Dose: Not Given Polyethylene Glycol (Miralax) 17 gm PO BID PRN PRN Reason: Constipation Sodium Chloride (Saline Flush) 10 ml FLUSH BID PRN PRN Reason: Keep Vein Open Last Admin: 05/11/19 23:18 Dose: 10 ml Tamsulosin HCl (Flomax) 0.4 mg PO DAILY@1200 [facility] Last Admin: 05/15/19 11:32 Dose: 0.4 mg Tiotropium [place] (Spiriva Handihaler) 18 mcg INH DAILY [facility] Last Admin: 05/16/19 08:31 Dose: 18 mcg Discontinued Medications Albuterol (Ventolin Hfa) gm INH Q4H PRN PRN Reason: Congestion Azithromycin (Zithromax) 500 mg PO DAILY [facility] Stop: 05/14/19 09:00 Last Admin: 05/14/19 13:39 Dose: 500 mg Fentanyl (Duragesic) Confirm Administered Dose 12 mcg .ROUTE .STK-MED ONE Stop: 05/11/19 08:25 Last Admin: 05/11/19 08:59 Dose: Not Given Furosemide (Lasix) 20 mg PO DAILY [facility] Last Admin: 05/13/19 08:35 Dose: 20 mg Levalbuterol HCl (Xopenex) 1.25 mg NEB Q6H [facility] Last Admin: 05/14/19 13:57 Dose: Not Given Omeprazole (Omeprazole) 40 mg PO ACBREAKFAST [facility] Prednisone (Prednisone) 40 mg PO WITHBREAKFAST [facility] Stop: 05/12/19 12:01 Prednisone (Prednisone) 40 mg PO WITHLUNCH [facility] Last Admin: 05/14/19 13:57 Dose: Not Given Prednisone (Prednisone) Confirm Administered Dose 40 mg .ROUTE .STK-MED ONE Stop: 05/10/19 12:27 Last Admin: 05/10/19 12:41 Dose: Not Given Tuberculin PPD (Aplisol) 5 unit IDERM ONETIME [facility] Stop: 05/10/19 15:01 Last Admin: 05/10/19 14:11 Dose: Not Given
== END 2019-05-16 09:45 | disposition home or self-care (01) | DRG 947 ==
LOC: UNDOADMIN 05-10 10:13 → LB.MS 05-10 10:13
PROVIDERS: ADMIT Nurse Practitioner Family; ATTEND Nurse Practitioner Family
DX: R53.1 Weakness (principal); J18.9 Pneumonia, unspecified organism; I69.351 Hemiplegia and hemiparesis following cerebral infarction affecting right dominant side; J44.9 Chronic obstructive pulmonary disease, unspecified; I50.9 Heart failure, unspecified; I11.0 Hypertensive heart disease with heart failure; E03.9 Hypothyroidism, unspecified; K21.9 Gastro-esophageal reflux disease without esophagitis; G89.29 Other chronic pain; H54.7 Unspecified visual loss; H35.30 Unspecified macular degeneration; I25.10 Atherosclerotic heart disease of native coronary artery without angina pectoris; E78.00 Pure hypercholesterolemia, unspecified; K59.09 Other constipation; N40.0 Benign prostatic hyperplasia without lower urinary tract symptoms; E11.9 Type 2 diabetes mellitus without complications; Z98.890 Other specified postprocedural states; Z85.6 Personal history of leukemia; Z79.82 Long term (current) use of aspirin; Z79.899 Other long term (current) drug therapy; I25.2 Old myocardial infarction; Z95.5 Presence of coronary angioplasty implant and graft; Z98.49 Cataract extraction status, unspecified eye
CPT/HCPCS: 82962; 86580; 97110-GO; 97110-GP; 97530-GO; 97530-GP; 97535-GO; A9270-GY; J7612

== ENCOUNTER 2019-08-31 08:59 | Emergency (ER) | payer MEDICARE ==
[2019-08-31 10:59] VITALS: BP 138/60
[2019-08-31] MEDS ORDERED: Bupivacaine 0.5% 10 ML SDV INJECT ONE (11:06)
[2019-08-31] MEDS ORDERED: Triamcinolone Acetonide 40 MG/ML 1 ML MDV INJECT ONE (11:06)
[2019-08-31] MEDS ORDERED: Methocarbamol 500 MG Tab PO ONE (11:31)
--- NOTE | 2019-08-31 11:41 | EDM.PDOC ---
ED HPI GENERAL MEDICAL PROBLEM - General Chief Complaint: Back Pain or Injury Stated Complaint: PAIN Time Seen by Provider: 08/31/19 09:00 - History of Present Illness INITIAL COMMENTS - FREE TEXT/NARRATIVE: Fabiano presents with an acute flare of chronic recurrent back pain. He denies any injury. Failed acetaminophen and lidoderm patches at home. Increased pain over the last couple of days elicited by certain movements. No changes in RLE strength deficit from old CVA. Denies gi/gu sx's or trouble urinating. His gave him tumeric. Brought in sheet from ?oncology regarding possibly getting an MRI. Sharad would like to try medications discussed first. - Related Data Allergies Allergy/AdvReac Type Severity Reaction Status Date / Time No Known Allergies Allergy Verified 12/20/18 12:47 Home Meds: Home Meds Aspirin [Adult Low Dose Aspirin EC] 81 mg PO QPM 11/16/13 [History] atorvaSTATin [Lipitor] 40 mg PO BEDTIME 01/13/16 [History] Acetaminophen [Tylenol Arthritis] 650 mg PO Q8HR 08/25/17 [History] Clopidogrel [Plavix] 75 mg PO DAILY 08/25/17 [History] Metoprolol Tartrate [Lopressor] 25 mg PO ACBREAKFAST 08/25/17 [History] Multivitamin [Men's Multi-Vitamin] 1 each PO 1200 08/25/17 [History] Tamsulosin [Flomax] 0.4 mg PO DAILY@1700 08/25/17 [History] Ubidecarenone [Co Q-10] 200 mg PO 1200 08/25/17 [History] Albuterol [Ventolin HFA] 2 inhalation INH Q4H PRN inhaler 09/23/18 [Rx] Omeprazole 40 mg PO ACBREAKFAST cap.cr 10/20/18 [Rx] polyethylene glycoL 3350 [MiraLAX] 17 gm PO BID PRN 12/20/18 [History] Lidocaine 5% [Lidoderm 5%] 1 patch TOP DAILY #10 patch 12/22/18 [Rx] Remove Patch 1 ea TRDERM DAILY@1999 each 12/22/18 [Rx] fentaNYL [Duragesic] 12 mcg TD Q72H #10 patch 12/22/18 [Rx] Furosemide [Lasix] 20 mg PO BID@0800,1400 #60 tablet 05/15/19 [Rx] Levothyroxine [Synthroid] 88 mcg PO ACBREAKFAST #30 tablet 05/15/19 [Rx] Non-Formulary Medication [NF Drug] 1 each PO TIDAC each 05/15/19 [Rx] Tiotropium [Spiriva HandiHaler] 18 mcg INH DAILY cap 05/15/19 [Rx] guaiFENesin [Robitussin] 200 mg PO Q4H PRN cup 05/15/19 [Rx] lisinopriL [Prinivil] 5 mg PO DAILY 30 Days #30 tablet 05/15/19 [Rx] Tiotropium [Spiriva] 1 puff INH DAILY 30 Days #30 kit 05/16/19 [Rx] Past Medical History HEENT History: Reports: Impaired Vision, Macular Degeneration, Other (See Below) 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 Has been to oncologist and they are watching it Gastrointestinal History: Reports: Chronic Constipation Genitourinary History: Reports: BPH, Other (See Below) Other Genitourinary History: incontinent Musculoskeletal History: Reports: Back Pain, Chronic, Fracture Neurological History: Reports: CVA, TIA Endocrine/Metabolic History: Reports: Diabetes, Type II, Hypothyroidism, Other ( See Below) Other Endocrine/Metabolic History: diet controled diabetes Hematologic History: Reports: Other (See Below) Other Hematologic History: hx leukemia Oncologic (Cancer) History: Reports: None Other Dermatologic History: breakdown on tailbone - Infectious Disease History Infectious Disease History: Reports: Chicken Pox, Measles, Mumps - Past Surgical History HEENT Surgical History: Reports: Cataract Surgery Cardiovascular Surgical History: Reports: Coronary Artery Bypass, Coronary Artery Stent, Vascular Surgery Respiratory Surgical History: Reports: None GI Surgical History: Reports: None Male Surgical History: Reports: None Endocrine Surgical History: Reports: None Neurological Surgical History: Reports: None Musculoskeletal Surgical History: Reports: Shoulder Surgery, Other (See Below) Other Musculoskeletal Surgeries/Procedures:: Bilat shoulder sx, fx arm Social & Family History - Family History Family Medical History: Noncontributory Musculoskeletal: Reports: Back pain, Chronic - Caffeine Use Caffeine Use: Reports: Coffee Caffeine Use Comment: 3 cups day ED ROS GENERAL - Review of Systems Review Of Systems: Comprehensive ROS is negative, except as noted in HPI. ED EXAM, GENERAL - Physical Exam Exam: See Below Exam Limited By: No Limitations General Appearance: Alert, WD/WN, No Apparent Distress Head: Atraumatic, Normocephalic Neck: Normal Inspection, Supple, Non-Tender, Full Range of Motion Respiratory/Chest: Lungs Clear, Normal Breath Sounds Cardiovascular: Regular Rate, Rhythm, No Murmur GI/Abdominal: Normal Bowel Sounds, Soft, Non-Tender Back Exam: Normal Inspection, Muscle Spasm, Other (right SI quite tender to even gentle palpation, after consent and under usual sterile precautions, entered si space and injected with kenalog at 40 mg and bupivicaine 9 mL. Pt tolerated well ). No: Vertebral Tenderness Extremities: Normal Capillary Refill Neurological: Alert, Oriented, Normal Cognition, Normal Reflexes Psychiatric: Normal Affect, Normal Mood Skin Exam: Warm, Dry Course - Vital Signs Text/Narrative:: discussed treatment options with Sharad and his he declines further PT amenable to robaxin trial encouraged to f/u with primary he wishes to hold off on MRI at this time reliable to return with any persistent or worsening issues Last Recorded V/S: Last Vital Signs Temp 97.6 F 08/31/19 10:48 Pulse Resp 16 08/31/19 11:12 BP 138/60 08/31/19 11:12 Pulse Ox 95 08/31/19 11:12 - Orders/Labs/Meds Meds: Medications Discontinued Medications Generic Name Dose Route Start Last Admin Trade Name Melchor PRN Reason Stop Dose Admin Bupivacaine HCl 10 ml 08/31/19 11:06 08/31/19 10:45 Sensorcaine-Mpf 0.5% INJECT 08/31/19 11:07 10 ml ONETIME ONE Administration Methocarbamol 500 mg 08/31/19 11:31 Robaxin PO 08/31/19 11:32 ONETIME ONE Triamcinolone Acetonide 40 mg 08/31/19 11:06 08/31/19 10:45 Kenalog-40 INJECT 08/31/19 11:07 40 mg ONETIME ONE Administration Departure - Departure Time of Disposition: 11:39 Disposition: Home, Self-Care 01 Condition: Good, Fair Clinical Impression: Back pain Qualifiers: Back pain location: low back pain Chronicity: unspecified Back pain laterality : unspecified Sciatica presence: without sciatica Qualified Code(s): M54.5 - Low back pain - Discharge Information Instructions: Chronic Back Pain, [id number]-[id number] Additional Instructions: Come back right away if trouble emptying bladder, loss of sensation where your inner thighs would contact a saddle, or any increasing leg weakness; otherwise follow up with your doctor as usual. Good luck with everything, Nawaf Gonzales MD Sepsis Event Note - Evaluation Sepsis Screening Result: No Definite Risk - Focused Exam Vital Signs: Vital Signs Temp Resp BP Pulse Ox 08/31/19 11:12 16 138/60 95 08/31/19 10:48 97.6 F 138/60 Date Exam was Performed: 08/31/19 Time Exam was Performed: 11:35
== END 2019-08-31 12:30 | disposition home or self-care (01) ==
LOC: LB.ED 08:59
DX: M54.5 Low back pain (principal); I25.10 Atherosclerotic heart disease of native coronary artery without angina pectoris; E78.00 Pure hypercholesterolemia, unspecified; I10 Essential (primary) hypertension; I25.2 Old myocardial infarction; E11.9 Type 2 diabetes mellitus without complications; E03.9 Hypothyroidism, unspecified; Z79.82 Long term (current) use of aspirin; Z79.899 Other long term (current) drug therapy; Z79.02 Long term (current) use of antithrombotics/antiplatelets; Z86.73 Personal history of transient ischemic attack (TIA), and cerebral infarction without residual deficits
CPT/HCPCS: 20552; 99283; A0425; A0429; A9270; J3301; J3490